=== PATIENT | female | born 1970 | race Asian ===

== ENCOUNTER 2016-11-03 08:53 | Emergency (ER) | payer MEDICAID ==
[~2016-11-03] VITALS: Ht 167.6 cm; Wt 74.8 kg
[2016-11-03] MEDS ORDERED: IV NS 0.9% 1,000 ML ONE (08:59)
[2016-11-03] MEDS ORDERED: ADENOSINE 6 MG/2 ML VIAL ONE (08:59)
[2016-11-03] MEDS ORDERED: IV SET PRIMARY 1 EA INFUS.SET MC ONE (08:59)
[2016-11-03] MEDS ORDERED: ADENOSINE 6 MG/2 ML VIAL IVP ONE (09:30)
[2016-11-03 09:46] VITALS: BP 125/89
== END 2016-11-03 09:47 | disposition home or self-care (01) ==
LOC: ER 08:54
DX: I47.1 Supraventricular tachycardia (principal); I48.91 Unspecified atrial fibrillation; Z98.890 Other specified postprocedural states; Z88.8 Allergy status to other drugs, medicaments and biological substances
CPT/HCPCS: 93005; 96374; 99291; A4606; J0153; J7030; Z7610

== ENCOUNTER 2017-06-19 12:30 | Emergency (ER) | payer MEDICAID, OTHER ==
[~2017-06-19] VITALS: Ht 157.5 cm; Wt 72.6 kg
--- NOTE | 2017-06-19 12:30 | NUR ---
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 PLACED ON MONITOR.
--- NOTE | 2017-06-19 12:59 | NUR ---
Patient discharged to home in stable condition. Written and verbal after care instructions given. Patient verbalizes understanding of instruction.
[2017-06-19 13:00] VITALS: BP 125/84
== END 2017-06-19 13:08 | disposition home or self-care (01) ==
LOC: ER 12:33
DX: I47.1 Supraventricular tachycardia (principal); I48.91 Unspecified atrial fibrillation; Z88.8 Allergy status to other drugs, medicaments and biological substances
CPT/HCPCS: 93005; 99283; A4606; Z7610

== ENCOUNTER 2018-02-14 13:51 | Outpatient (CLI) | payer MEDICAID, OTHER ==
[2018-02-14 14:00] VITALS: BP 126/78
== END 2018-02-14 23:59 | disposition home or self-care (01) ==
LOC: MSC 13:51
PROVIDERS: ATTEND Internal Medicine
DX: J06.9 Acute upper respiratory infection, unspecified (principal); I12.9 Hypertensive chronic kidney disease with stage 1 through stage 4 chronic kidney disease, or unspecified chronic kidney disease; N18.2 Chronic kidney disease, stage 2 (mild)

== ENCOUNTER 2018-06-12 10:54 | Emergency (ER) | payer BC, MEDICAID, OTHER ==
[~2018-06-12] VITALS: Ht 157.5 cm; Wt 74.8 kg
[2018-06-12 10:54] VITALS: BP 155/113
--- NOTE | 2018-06-12 10:57 | NUR ---
STAT EKG DONE. PT CONVERTED TO NSR.
== END 2018-06-12 11:40 | disposition home or self-care (01) ==
LOC: ER 10:57
DX: I47.1 Supraventricular tachycardia (principal); I48.91 Unspecified atrial fibrillation; Z98.890 Other specified postprocedural states; Z88.8 Allergy status to other drugs, medicaments and biological substances
CPT/HCPCS: 93005; 99283; A4606; Z7610

== ENCOUNTER 2018-06-14 06:57 | Outpatient (CLI) | payer BC ==
[2018-06-14 08:59] LABS: APPEARANCE,URINE SL CLOUDY (CLEAR); BILIRUBIN,URINE NEGATIVE (NEGATIVE); BLOOD, URINE 3+ Ery/uL (NEGATIVE); COLOR,URINE YELLOW (YELLOW); KETONES,URINE NEGATIVE (NEGATIVE); LEUKOCYTE ESTERASE ,URINE NEGATIVE (NEGATIVE); NITRITE, URINE NEGATIVE (NEGATIVE); PROTEIN,URINE 2+ mg/dl (NEGATIVE); UGLUCOSE NEGATIVE (NEGATIVE); UROBILINOGEN,URINE 0.2 EU/dL (0.2)
[2018-06-14 09:25] LABS: ALBUMIN 3.8 g/dL (3.4-5.0); BACTERIA,URINE Few /HPF (None Seen); BILIRUBIN,TOTAL 0.4 mg/dL (0.2-1.0); CALCIUM, SERUM 8.7 mg/dL (8.5-10.1); CREATININE 1.1 mg/dL (0.6-1.3); POTASSIUM 4.1 mmol/L (3.5-5.1); SQUAMOUS EPITHELIAL CELL,UR Few /HPF (None Seen); TOTAL PROTEIN, SERUM 8.1 g/dL (6.4-8.2); WBC,URINE 0-2 /HPF (0-3)
[2018-06-14 09:32] LABS: HEMATOCRIT 39 % (33-45); HEMOGLOBIN 12.2 g/dL (11.5-14.8); MEAN CORPUSCULAR HGB CONC 32 g/dl (31.0-36.0); MEAN CORPUSCULAR VOLUME 80 fL (82-100); RED BLOOD CELL COUNT(AUTO) 4.85 MIL/uL (4.0-5.2); WHITE BLOOD COUNT (AUTO) 5.6 K/uL (4.3-11.0)
[2018-06-14 09:33] LABS: BASOPHILS % (AUTO) 0.7 % (0.0-2.0); EOSINOPHILS % (AUTO) 1.4 % (0.0-6.0); LYMPHOCYTES # (AUTO) 1.9 /CMM (0.8-4.8); LYMPHOCYTES % (AUTO) 33.9 % (20.0-44.0); MONOCYTES # (AUTO) 0.4 /CMM (0.1-1.30); MONOCYTES % (AUTO) 7.1 % (2.0-12.0); NEUTROPHILS # (AUTO) 3.2 /CMM (1.8-8.9); NEUTROPHILS % (AUTO) 56.9 % (43.0-81.0); PLATELET COUNT (AUTO) 288 /CMM (150-450); RDW COEFFICIENT OF VARIATION 15.6 (11.5-15.0)
[2018-06-14 09:37] LABS: THYROID STIMULATING HORMONE 1.184 uIU/mL (0.358-3.74)
== END 2018-06-14 23:59 | disposition home or self-care (01) ==
LOC: LAB 06:57
PROVIDERS: ATTEND Legal Medicine
DX: Z00.01 Encounter for general adult medical examination with abnormal findings (principal); I10 Essential (primary) hypertension; E78.5 Hyperlipidemia, unspecified; E03.9 Hypothyroidism, unspecified
CPT/HCPCS: 36415; 80053-TC; 80061-TC; 81000-TC; 82728-TC; 83540-TC; 84439-TC; 84443-TC; 85025-TC

== ENCOUNTER 2018-09-28 10:23 | Emergency (ER) | payer BC, OTHER ==
[~2018-09-28] VITALS: Ht 157.5 cm; Wt 73.9 kg
[2018-09-28] MEDS ORDERED: BENA20TA9 PO (10:50)
[2018-09-28] MEDS ORDERED: METO50TA16 PO (10:50)
--- NOTE | 2018-09-28 11:00 | NUR ---
pt came in to the ER due to rapid heartbeat. on room air, denies any pain at this time, connected to the monitor and converted to sinus rhythm 75. breathing evenly and unlabored. Kept comfortable. awaiting for md for eval. Will continue to monitor accordingly.
[2018-09-28 11:34] VITALS: BP 120/85
--- NOTE | 2018-09-28 11:39 | NUR ---
Patient discharged to home in stable condition. Written and verbal after care instructions given. Patient verbalizes understanding of instruction.
== END 2018-09-28 11:38 | disposition home or self-care (01) ==
LOC: ER 10:25
DX: I47.1 Supraventricular tachycardia (principal); I48.91 Unspecified atrial fibrillation; Z98.890 Other specified postprocedural states; Z88.8 Allergy status to other drugs, medicaments and biological substances; Z79.899 Other long term (current) drug therapy
CPT/HCPCS: 93005; 99283; A4606; Z7610

== ENCOUNTER 2018-12-17 22:35 | Emergency (ER) | payer BC, OTHER ==
[~2018-12-17] VITALS: Ht 157.5 cm; Wt 72.6 kg
[~2018-12-17 22:35] MED LIST: BENA20TA9 PO; METO50TA16 PO
--- NOTE | 2018-12-17 22:50 | NUR ---
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 DENIES SOB. SKIN WARM, DRY, INTACT. HOOKED TO MONITOR AND MADE COMFORTABLE. IV LINE ACCESSED LEFT AC 18G. IVF INFUSING. AT BEDSIDE. SEEN BY DR JOSEPH. WILL CONT TO MONITOR.
[2018-12-17] MEDS ORDERED: LABETALOL 20 MG/4 ML VIAL IV ONE (23:00)
[2018-12-17 23:04] LABS: BASOPHILS # (AUTO) 0.1 /CMM (0.0-0.2); BASOPHILS % (AUTO) 0.7 % (0.0-2.0); EOSINOPHILS % (AUTO) 1.8 % (0.0-6.0); HEMATOCRIT 32 % (33-45); LYMPHOCYTES # (AUTO) 2.3 /CMM (0.8-4.8); LYMPHOCYTES % (AUTO) 18.8 % (20.0-44.0); MEAN CORPUSCULAR HGB CONC 31 g/dl (31.0-36.0); MEAN CORPUSCULAR VOLUME 75 fL (82-100); MONOCYTES # (AUTO) 0.6 /CMM (0.1-1.30); MONOCYTES % (AUTO) 4.6 % (2.0-12.0); NEUTROPHILS # (AUTO) 9.2 /CMM (1.8-8.9); NEUTROPHILS % (AUTO) 74.1 % (43.0-81.0); PLATELET COUNT (AUTO) 402 /CMM (150-450); RED BLOOD CELL COUNT(AUTO) 4.31 MIL/uL (4.0-5.2); WHITE BLOOD COUNT (AUTO) 12.5 K/uL (4.3-11.0)
[2018-12-17] MEDS ORDERED: DILTIAZEM HCL 25 MG IV ONE (23:06)
--- NOTE | 2018-12-17 23:11 | NUR ---
PT HR 80. SINUS RHYTHM. DR JAKE MARS.
[2018-12-17 23:13] LABS: CALCIUM, SERUM 8.8 mg/dL (8.5-10.1); CARBON DIOXIDE 24 mmol/L (21-32); CHLORIDE 101 mmol/L (98-107); GLUCOSE 134 mg/dL (74-106); POTASSIUM 4.7 mmol/L (3.5-5.1); SODIUM SERUM 135 mmol/L (136-145); UREA NITROGEN, BLOOD 19 mg/dL (7-18)
[2018-12-17] MEDS ORDERED: DILTIAZEM HCL 50 MG IV IV ONE ×2 (23:30)
--- NOTE | 2018-12-18 00:27 | NUR ---
PT OK TO DISCHARGE PER DR JOSEPH. IV removed. Catheter intact and site benign. Pressure and 4x4 applied to site. No bleeding noted.Patient discharged to home in stable condition. Written and verbal after care instructions given. Patient verbalizes understanding of instruction.Patient is awake and alert to self, day, and place. PT ambulatory with a steady gait
[2018-12-18 00:28] VITALS: BP 101/77
== END 2018-12-18 00:30 | disposition home or self-care (01) ==
LOC: ER 22:39
DX: I44.30 Unspecified atrioventricular block (principal); I48.92 Unspecified atrial flutter; Z98.890 Other specified postprocedural states; Z88.8 Allergy status to other drugs, medicaments and biological substances; Z79.899 Other long term (current) drug therapy
CPT/HCPCS: 36415; 71045; 80048; 84484; 85025; 93005 ×2; 96374; 99291; J3490; J7030

== ENCOUNTER 2019-02-28 11:03 | Emergency (ER) | payer BC, OTHER ==
[~2019-02-28] VITALS: Ht 157.5 cm; Wt 72.6 kg
[2019-02-28] MEDS ORDERED: ADENOSINE 6 MG/2 ML VIAL ONE (11:15)
--- NOTE | 2019-02-28 11:16 | NUR ---
CAME IN FOR PALPITATIONS NOTED AT 1040AM WHILE WORKING. DENIES CHEST PAIN AND SOB. TOOK 25MG OF METOPROLOL AT 1045. TO ER BED 1, HOOKED TO MONITOR, CHANGED TO GOWN, PROVIDED W WARM BLANKET, CRM ADMINISTRATOR AT BEDSIDE
[2019-02-28] MEDS ORDERED: DILTIAZEM HCL 25 MG IV ONE (11:19)
--- NOTE | 2019-02-28 11:25 | NUR ---
Line started on r ac g20, blood drawn from line and sent to lab. EKG completed Dr. Ramirez at bedside for MD lynn. Pt medicated as ordered with 20mg cardizem slow IVP
--- NOTE | 2019-02-28 11:26 | NUR ---
Pt converted to NSR HR 93, after cardizem. Repeat EKG obtained. MD paredes
[2019-02-28] MEDS ORDERED: DILTIAZEM HCL 50 MG IV IV ONE (11:30)
[2019-02-28 11:38] LABS: BASOPHILS # (AUTO) 0.1 /CMM (0.0-0.2); BASOPHILS % (AUTO) 0.7 % (0.0-2.0); EOSINOPHILS % (AUTO) 0.7 % (0.0-6.0); HEMATOCRIT 35 % (33-45); LYMPHOCYTES # (AUTO) 2.3 /CMM (0.8-4.8); LYMPHOCYTES % (AUTO) 27.1 % (20.0-44.0); MEAN CORPUSCULAR HGB CONC 31 g/dl (31.0-36.0); MEAN CORPUSCULAR VOLUME 70 fL (82-100); MONOCYTES # (AUTO) 0.6 /CMM (0.1-1.30); MONOCYTES % (AUTO) 7.6 % (2.0-12.0); NEUTROPHILS # (AUTO) 5.4 /CMM (1.8-8.9); NEUTROPHILS % (AUTO) 63.9 % (43.0-81.0); PLATELET COUNT (AUTO) 393 /CMM (150-450); RED BLOOD CELL COUNT(AUTO) 5.01 MIL/uL (4.0-5.2); WHITE BLOOD COUNT (AUTO) 8.4 K/uL (4.3-11.0)
[2019-02-28 11:45] LABS: CALCIUM, SERUM 8.9 mg/dL (8.5-10.1); CARBON DIOXIDE 25 mmol/L (21-32); CHLORIDE 100 mmol/L (98-107); CREATININE 0.9 mg/dL (0.6-1.3); GLUCOSE 103 mg/dL (74-106); POTASSIUM 3.9 mmol/L (3.5-5.1); SODIUM SERUM 136 mmol/L (136-145); UREA NITROGEN, BLOOD 12 mg/dL (7-18)
--- NOTE | 2019-02-28 13:08 | NUR ---
IV removed. Catheter intact and site benign. Pressure and 4x4 applied to site. No bleeding noted.Patient discharged to home in stable condition. Written and verbal after care instructions given. Patient verbalizes understanding of instruction.
[2019-02-28 13:10] VITALS: BP 148/82
== END 2019-02-28 13:10 | disposition home or self-care (01) ==
LOC: ER 11:03
DX: I47.1 Supraventricular tachycardia (principal); I10 Essential (primary) hypertension; I48.91 Unspecified atrial fibrillation; R07.89 Other chest pain; Z98.890 Other specified postprocedural states; Z88.8 Allergy status to other drugs, medicaments and biological substances
CPT/HCPCS: 36415; 80048; 84484; 84702; 85025; 93005 ×2; 96374; 99291; J3490; J7030; 71045-TC; J0153

== ENCOUNTER 2019-03-14 09:38 | Outpatient (CLI) | payer BC, OTHER ==
[2019-03-14 10:57] LABS: BASOPHILS # (AUTO) 0.1 /CMM (0.0-0.2); BASOPHILS % (AUTO) 0.6 % (0.0-2.0); EOSINOPHILS % (AUTO) 0.3 % (0.0-6.0); HEMATOCRIT 34 % (33-45); HEMOGLOBIN 10.5 g/dL (11.5-14.8); LYMPHOCYTES # (AUTO) 1.7 /CMM (0.8-4.8); LYMPHOCYTES % (AUTO) 21.2 % (20.0-44.0); MEAN CORPUSCULAR HGB CONC 31 g/dl (31.0-36.0); MEAN CORPUSCULAR VOLUME 72 fL (82-100); MONOCYTES # (AUTO) 0.5 /CMM (0.1-1.30); MONOCYTES % (AUTO) 6.2 % (2.0-12.0); NEUTROPHILS # (AUTO) 5.8 /CMM (1.8-8.9); NEUTROPHILS % (AUTO) 71.7 % (43.0-81.0); PLATELET COUNT (AUTO) 349 /CMM (150-450); RED BLOOD CELL COUNT(AUTO) 4.77 MIL/uL (4.0-5.2)
[2019-03-14 11:10] LABS: APPEARANCE,URINE SL CLOUDY (CLEAR); BILIRUBIN,URINE NEGATIVE (NEGATIVE); BLOOD, URINE 2+ Ery/uL (NEGATIVE); COLOR,URINE YELLOW (YELLOW); KETONES,URINE NEGATIVE (NEGATIVE); LEUKOCYTE ESTERASE ,URINE NEGATIVE (NEGATIVE); NITRITE, URINE NEGATIVE (NEGATIVE); PROTEIN,URINE 2+ mg/dl (NEGATIVE); UGLUCOSE NEGATIVE (NEGATIVE); UROBILINOGEN,URINE 0.2 EU/dL (0.2)
[2019-03-14 11:15] LABS: ALBUMIN 3.5 g/dL (3.4-5.0); BILIRUBIN,TOTAL 0.3 mg/dL (0.2-1.0); CALCIUM, SERUM 9.1 mg/dL (8.5-10.1); CREATININE 1.1 mg/dL (0.6-1.3); POTASSIUM 4.2 mmol/L (3.5-5.1); TOTAL PROTEIN, SERUM 7.8 g/dL (6.4-8.2)
[2019-03-14 11:19] LABS: BACTERIA,URINE Moderate /HPF (None Seen)
[2019-03-14 11:20] LABS: SQUAMOUS EPITHELIAL CELL,UR Few /HPF (None Seen)
[2019-03-14 11:21] LABS: WBC,URINE 0-2 /HPF (0-3)
[2019-03-14 11:28] LABS: THYROID STIMULATING HORMONE 0.837 uIU/mL (0.358-3.74)
[2019-03-15 08:07] LABS: FOLLICLE STIMULATION HORMONE 2.6 mIU/mL (.); LUTEINIZING HORMONE 6.9 mIU/mL (.); PROLACTIN 22.8 ng/mL (4.8-23.3)
== END 2019-03-14 23:59 | disposition home or self-care (01) ==
LOC: LAB 09:38
PROVIDERS: ATTEND Legal Medicine
DX: Z00.00 Encounter for general adult medical examination without abnormal findings (principal); I10 Essential (primary) hypertension; E03.9 Hypothyroidism, unspecified; D64.9 Anemia, unspecified; E55.9 Vitamin D deficiency, unspecified
CPT/HCPCS: 36415; 80053-TC; 80061-TC; 81000-TC; 82306; 82670; 82728-TC; 83001; 83002; 83540-TC; 84146; 84439-TC; 84443-TC; 85025-TC; 87086-TC

== ENCOUNTER 2019-04-14 22:31 | Emergency (ER) | payer BC, OTHER ==
[~2019-04-14] VITALS: Ht 162.6 cm; Wt 63.5 kg
[2019-04-14] MEDS ORDERED: ADENOSINE 6 MG/2 ML VIAL ONE (22:45)
[2019-04-14 23:08] LABS: BASOPHILS # (AUTO) 0.1 /CMM (0.0-0.2); BASOPHILS % (AUTO) 0.7 % (0.0-2.0); HEMATOCRIT 39 % (33-45); HEMOGLOBIN 12.5 g/dL (11.5-14.8); LYMPHOCYTES # (AUTO) 1.5 /CMM (0.8-4.8); LYMPHOCYTES % (AUTO) 18.5 % (20.0-44.0); MEAN CORPUSCULAR HGB CONC 32 g/dl (31.0-36.0); MEAN CORPUSCULAR VOLUME 77 fL (82-100); MONOCYTES # (AUTO) 0.6 /CMM (0.1-1.30); NEUTROPHILS # (AUTO) 5.8 /CMM (1.8-8.9); NEUTROPHILS % (AUTO) 72.8 % (43.0-81.0); PLATELET COUNT (AUTO) 332 /CMM (150-450); RED BLOOD CELL COUNT(AUTO) 5.09 MIL/uL (4.0-5.2); WHITE BLOOD COUNT (AUTO) 7.9 K/uL (4.3-11.0)
[2019-04-14 23:21] LABS: CALCIUM, SERUM 8.5 mg/dL (8.5-10.1); CARBON DIOXIDE 25 mmol/L (21-32); CHLORIDE 109 mmol/L (98-107); CREATININE 1.1 mg/dL (0.6-1.3); GLUCOSE 111 mg/dL (74-106); POTASSIUM 3.7 mmol/L (3.5-5.1); SODIUM SERUM 144 mmol/L (136-145); UREA NITROGEN, BLOOD 14 mg/dL (7-18)
--- NOTE | 2019-04-15 01:34 | NUR ---
Patient discharged to home in stable condition. Written and verbal after care instructions given. Patient verbalizes understanding of instruction.
[2019-04-15 01:35] VITALS: BP 135/95
== END 2019-04-15 01:36 | disposition home or self-care (01) ==
LOC: ER 22:35
DX: I47.1 Supraventricular tachycardia (principal); R00.2 Palpitations; I48.91 Unspecified atrial fibrillation; Z98.890 Other specified postprocedural states; Z88.8 Allergy status to other drugs, medicaments and biological substances
CPT/HCPCS: 36415; 71045-TC; 80048-TC; 83735-TC; 84484-TC; 85025-TC; J0153

== ENCOUNTER 2019-08-01 10:49 | Emergency (ER) | payer BC, OTHER ==
[~2019-08-01] VITALS: Ht 160 cm; Wt 73.5 kg
[2019-08-01] MEDS: ADENOSINE 6 MG/2 ML VIAL IVP ONE (10:42)
--- NOTE | 2019-08-01 10:49 | NUR ---
PATIENT GIVEN ADENOSINE 6MG IV ON LEFT AC G18 AT 1042. PATIENT ON THE MONITOR FOR SVT >150S. PATIENT A/OX4, BREATHING EVEN AND UNLABORED, NO SOB NOTED, FEELS PALPITATION.
--- NOTE | 2019-08-01 10:53 | NUR ---
PATIENT CONVERTED TO SINUS RHYTHM. PATIENT TOLERATED PROCEDURE WELL. NO DISTRESS NOTED.
[2019-08-01 11:26] LABS: BILIRUBIN,URINE Negative (NEGATIVE); BLOOD, URINE Small Ery/uL (NEGATIVE); COLOR,URINE Yellow (YELLOW); KETONES,URINE Negative (NEGATIVE); LEUKOCYTE ESTERASE ,URINE Negative (NEGATIVE); NITRITE, URINE Negative (NEGATIVE); PROTEIN,URINE 100 mg/dl (NEGATIVE); UGLUCOSE Negative (NEGATIVE); UROBILINOGEN,URINE 0.2 EU/dL (0.2)
[2019-08-01 11:27] LABS: APPEARANCE,URINE Slightly Hazy (CLEAR)
[2019-08-01 11:33] LABS: BASOPHILS # (AUTO) 0.1 /CMM (0.0-0.2); BASOPHILS % (AUTO) 0.7 % (0.0-2.0); EOSINOPHILS % (AUTO) 1.1 % (0.0-6.0); HEMATOCRIT 40 % (33-45); LYMPHOCYTES # (AUTO) 1.3 /CMM (0.8-4.8); LYMPHOCYTES % (AUTO) 16.9 % (20.0-44.0); MEAN CORPUSCULAR HGB CONC 33 g/dl (31.0-36.0); MEAN CORPUSCULAR VOLUME 86 fL (82-100); MONOCYTES # (AUTO) 0.6 /CMM (0.1-1.30); MONOCYTES % (AUTO) 8.3 % (2.0-12.0); NEUTROPHILS # (AUTO) 5.5 /CMM (1.8-8.9); PLATELET COUNT (AUTO) 264 /CMM (150-450); RED BLOOD CELL COUNT(AUTO) 4.63 MIL/uL (4.0-5.2); WHITE BLOOD COUNT (AUTO) 7.5 K/uL (4.3-11.0)
[2019-08-01 11:40] LABS: BACTERIA,URINE None seen /HPF (None Seen); SQUAMOUS EPITHELIAL CELL,UR Moderate /HPF (None Seen); WBC,URINE 0-2 /HPF (0-3)
[2019-08-01 11:47] LABS: CHLORIDE 109 mmol/L (98-107); POTASSIUM 3.4 mmol/L (3.5-5.1); SODIUM SERUM 142 mmol/L (136-145)
[2019-08-01 11:48] LABS: CALCIUM, SERUM 8.6 mg/dL (8.5-10.1); CARBON DIOXIDE 28 mmol/L (21-32); CREATININE 0.9 mg/dL (0.6-1.3); GLUCOSE 97 mg/dL (74-106); UREA NITROGEN, BLOOD 14 mg/dL (7-18)
--- NOTE | 2019-08-01 13:20 | NUR ---
Patient discharged to home in stable condition. Written and verbal after care instructions given. Patient verbalizes understanding of instruction. IV removed. Catheter intact and site benign. Pressure and 4x4 applied to site. No bleeding noted.
[2019-08-01 14:42] VITALS: BP 142/90
== END 2019-08-01 13:30 | disposition home or self-care (01) ==
LOC: ER 10:50
DX: I47.1 Supraventricular tachycardia (principal); R00.2 Palpitations; I10 Essential (primary) hypertension; I48.91 Unspecified atrial fibrillation; Z79.899 Other long term (current) drug therapy; Z98.890 Other specified postprocedural states; Z88.8 Allergy status to other drugs, medicaments and biological substances
CPT/HCPCS: 36415; 80048; 81001; 84484; 85025; 93005; 96374; 99284; J0153; 81000-TC

== ENCOUNTER 2020-02-02 09:00 | Emergency (ER) | payer BC, OTHER ==
[~2020-02-02] VITALS: Ht 157.5 cm; Wt 72.6 kg
[2020-02-02] MEDS ORDERED: ADENOSINE 6 MG/2 ML VIAL ONE (09:10)
[2020-02-02 09:20] LABS: BASOPHILS # (AUTO) 0.1 /CMM (0.0-0.2); BASOPHILS % (AUTO) 0.6 % (0.0-2.0); EOSINOPHILS % (AUTO) 1.2 % (0.0-6.0); HEMATOCRIT 46 % (33-45); HEMOGLOBIN 15.5 g/dL (11.5-14.8); LYMPHOCYTES # (AUTO) 2.8 /CMM (0.8-4.8); LYMPHOCYTES % (AUTO) 28.6 % (20.0-44.0); MEAN CORPUSCULAR HGB CONC 34 g/dl (31.0-36.0); MEAN CORPUSCULAR VOLUME 86 fL (82-100); MONOCYTES # (AUTO) 0.7 /CMM (0.1-1.30); MONOCYTES % (AUTO) 6.9 % (2.0-12.0); NEUTROPHILS # (AUTO) 6.1 /CMM (1.8-8.9); NEUTROPHILS % (AUTO) 62.7 % (43.0-81.0); PLATELET COUNT (AUTO) 304 /CMM (150-450); RED BLOOD CELL COUNT(AUTO) 5.39 MIL/uL (4.0-5.2); WHITE BLOOD COUNT (AUTO) 9.8 K/uL (4.3-11.0)
--- NOTE | 2020-02-02 09:20 | NUR ---
patient came in to ther er c/o "Palpitations started around 750 this am took cardizem but did not help". On room air, breathing evenly and unlabored. connected to the monitor and pulse ox. kept comfortable, will continue to monitor accordingly.
[2020-02-02 09:27] LABS: CALCIUM, SERUM 8.9 mg/dL (8.5-10.1); CARBON DIOXIDE 27 mmol/L (21-32); CHLORIDE 101 mmol/L (98-107); CREATININE 1.1 mg/dL (0.6-1.3); GLUCOSE 123 mg/dL (74-106); POTASSIUM 3.5 mmol/L (3.5-5.1); SODIUM SERUM 139 mmol/L (136-145); UREA NITROGEN, BLOOD 14 mg/dL (7-18)
[2020-02-02] MEDS ORDERED: ADENOSINE 6 MG/2 ML VIAL IVP ONE (09:30)
[2020-02-02] MEDS ORDERED: IV NS 0.9% 1,000 ML BAG IV ONE (09:30)
--- NOTE | 2020-02-02 09:41 | NUR ---
juliana at bedside for x-ray
[2020-02-02 10:31] VITALS: BP 145/101
--- NOTE | 2020-02-02 10:31 | NUR ---
Patient discharged to home in stable condition. Written and verbal after care instructions given. Patient verbalizes understanding of instruction.IV removed. Catheter intact and site benign. Pressure and 4x4 applied to site. No bleeding noted.
== END 2020-02-02 10:31 | disposition home or self-care (01) ==
LOC: ER 09:03
DX: I47.1 Supraventricular tachycardia (principal); I10 Essential (primary) hypertension; I48.91 Unspecified atrial fibrillation; Z98.890 Other specified postprocedural states; Z88.8 Allergy status to other drugs, medicaments and biological substances; Z79.899 Other long term (current) drug therapy
CPT/HCPCS: 36415; 71045; 80048; 84484; 85025; 93005 ×2; 96374; 99291; J0153

== ENCOUNTER 2020-02-13 07:03 | Emergency (ER) | payer BC, OTHER ==
[~2020-02-13] VITALS: Ht 157.5 cm; Wt 72.6 kg
--- NOTE | 2020-02-13 07:18 | NUR ---
PALPITATIONS SINCE 642 WHILE DRIVING. PATIENT A/OX4, BREATHING EVEN AND UNLABORED, ATTACHED TO THE VP EMERGING MEDIA. IV LINE ESTABLISHED. MEDICATIONS PREPARED.
[2020-02-13] MEDS: ADENOSINE 6 MG/2 ML VIAL IVP ONE (07:19)
[2020-02-13] MEDS ORDERED: ADENOSINE 6 MG/2 ML VIAL ONE (07:19)
--- NOTE | 2020-02-13 07:20 | NUR ---
PATIENT CONVERTED TO SINUS TACHYCARDIA. PATIENT RESTING, NO DISTRESS NOTED.
[2020-02-13 07:49] LABS: BASOPHILS % (AUTO) 0.7 % (0.0-2.0); HEMATOCRIT 41 % (33-45); HEMOGLOBIN 13.8 g/dL (11.5-14.8); LYMPHOCYTES # (AUTO) 1.5 /CMM (0.8-4.8); LYMPHOCYTES % (AUTO) 23.8 % (20.0-44.0); MEAN CORPUSCULAR HGB CONC 33 g/dl (31.0-36.0); MEAN CORPUSCULAR VOLUME 86 fL (82-100); MONOCYTES # (AUTO) 0.4 /CMM (0.1-1.30); MONOCYTES % (AUTO) 6.8 % (2.0-12.0); NEUTROPHILS # (AUTO) 4.3 /CMM (1.8-8.9); NEUTROPHILS % (AUTO) 67.7 % (43.0-81.0); PLATELET COUNT (AUTO) 261 /CMM (150-450); RED BLOOD CELL COUNT(AUTO) 4.83 MIL/uL (4.0-5.2); WHITE BLOOD COUNT (AUTO) 6.4 K/uL (4.3-11.0)
[2020-02-13 07:59] LABS: ALANINE AMINOTRANSFERASE 28 U/L (12-78); ALBUMIN 3.2 g/dL (3.4-5.0); ALKALINE PHOSPHATASE 62 U/L (46-116); ASPARTATE AMINOTRANSFERASE 25 U/L (15-37); BILIRUBIN,DIRECT 0.2 mg/dL (0.0-0.2); BILIRUBIN,TOTAL 0.5 mg/dL (0.2-1.0); CALCIUM, SERUM 8.3 mg/dL (8.5-10.1); CARBON DIOXIDE 29 mmol/L (21-32); CHLORIDE 104 mmol/L (98-107); CREATININE 1.1 mg/dL (0.6-1.3); GLUCOSE 109 mg/dL (74-106); POTASSIUM 3.5 mmol/L (3.5-5.1); SODIUM SERUM 141 mmol/L (136-145); TOTAL PROTEIN, SERUM 7.1 g/dL (6.4-8.2); UREA NITROGEN, BLOOD 14 mg/dL (7-18)
[2020-02-13 08:31] VITALS: BP 140/90
--- NOTE | 2020-02-13 08:31 | NUR ---
PATIENT STATED SHE FEELS BETTER, NO DISTRESS NOTED. NEEDS ATTENDED. IV removed. Catheter intact and site benign. Pressure and 4x4 applied to site. No bleeding noted.Patient discharged to home in stable condition. Written and verbal after care instructions given. Patient verbalizes understanding of instruction.
== END 2020-02-13 08:35 | disposition home or self-care (01) ==
LOC: ER 07:03
DX: I47.1 Supraventricular tachycardia (principal); R00.2 Palpitations; I10 Essential (primary) hypertension; I48.91 Unspecified atrial fibrillation; Z98.890 Other specified postprocedural states; Z88.8 Allergy status to other drugs, medicaments and biological substances; Z79.899 Other long term (current) drug therapy
CPT/HCPCS: 36415; 71045; 80048; 80076; 84484; 85025; 93005 ×2; 96374; 99285; J0153

== ENCOUNTER 2020-03-05 15:54 | Emergency (ER) | payer BC, OTHER ==
[~2020-03-05] VITALS: Ht 157.5 cm; Wt 72.6 kg
[2020-03-05] MEDS ORDERED: ADENOSINE 6 MG/2 ML VIAL ONE (16:09)
--- NOTE | 2020-03-05 16:20 | NUR ---
Medicated as per orders w/Dr Mckeon at bedside HR now around <130.
[2020-03-05 16:31] LABS: BASOPHILS % (AUTO) 0.4 % (0.0-2.0); HEMATOCRIT 43 % (33-45); HEMOGLOBIN 14.4 g/dL (11.5-14.8); LYMPHOCYTES % (AUTO) 32.2 % (20.0-44.0); MEAN CORPUSCULAR HGB CONC 33 g/dl (31.0-36.0); MEAN CORPUSCULAR VOLUME 86 fL (82-100); MONOCYTES # (AUTO) 0.5 /CMM (0.1-1.30); NEUTROPHILS # (AUTO) 5.6 /CMM (1.8-8.9); NEUTROPHILS % (AUTO) 61.4 % (43.0-81.0); PLATELET COUNT (AUTO) 310 /CMM (150-450); RED BLOOD CELL COUNT(AUTO) 5.03 MIL/uL (4.0-5.2); WHITE BLOOD COUNT (AUTO) 9.2 K/uL (4.3-11.0)
[2020-03-05 16:40] LABS: CALCIUM, SERUM 8.9 mg/dL (8.5-10.1); CARBON DIOXIDE 28 mmol/L (21-32); CHLORIDE 103 mmol/L (98-107); CREATININE 1.1 mg/dL (0.6-1.3); GLUCOSE 125 mg/dL (74-106); POTASSIUM 3.6 mmol/L (3.5-5.1); SODIUM SERUM 139 mmol/L (136-145); UREA NITROGEN, BLOOD 13 mg/dL (7-18)
--- NOTE | 2020-03-05 17:06 | NUR ---
in to re-evaluate pt. aware of BP trending high
[2020-03-05] MEDS ORDERED: LABETALOL 20 MG/4 ML VIAL IV ONE (17:30)
[2020-03-05] MEDS ORDERED: LABETALOL HCL IV 100MG VIAL ONE (17:38)
--- NOTE | 2020-03-05 17:43 | NUR ---
Pt states feeling better. Medicated as ordered
[2020-03-05 18:22] VITALS: BP 142/91
--- NOTE | 2020-03-05 18:23 | NUR ---
Patient discharged to home in stable condition. Written and verbal after care instructions given. Patient verbalizes understanding of instruction.
== END 2020-03-05 18:23 | disposition home or self-care (01) ==
LOC: ER 15:57
DX: I47.1 Supraventricular tachycardia (principal); R00.2 Palpitations; I10 Essential (primary) hypertension; I48.91 Unspecified atrial fibrillation; Z98.890 Other specified postprocedural states; Z79.899 Other long term (current) drug therapy; Z88.8 Allergy status to other drugs, medicaments and biological substances
CPT/HCPCS: 36415; 71045; 80048; 84484; 85025; 93005 ×3; 96374; 99285; J0153; J3490 ×2; J7030

== ENCOUNTER 2020-05-14 11:52 | Emergency (ER) | payer BC, OTHER ==
[~2020-05-14] VITALS: Ht 157.5 cm; Wt 74.8 kg
[2020-05-14 11:59] VITALS: BP 135/90
== END 2020-05-14 12:28 | disposition home or self-care (01) ==
LOC: ER 11:55
DX: Z20.828 Contact with and (suspected) exposure to other viral communicable diseases (principal)
CPT/HCPCS: 99283; C9803; U0003

== ENCOUNTER 2020-05-21 11:23 | Emergency (ER) | payer OTHER ==
[~2020-05-21] VITALS: Ht 157.5 cm; Wt 74.4 kg
[2020-05-21 11:29] VITALS: BP 135/84
--- NOTE | 2020-05-21 12:10 | NUR ---
covid swab sent,
== END 2020-05-21 12:23 | disposition home or self-care (01) ==
LOC: ER 11:25
DX: Z20.828 Contact with and (suspected) exposure to other viral communicable diseases (principal); I10 Essential (primary) hypertension; Z79.899 Other long term (current) drug therapy
CPT/HCPCS: 99283; C9803; U0003

== ENCOUNTER 2020-06-04 09:09 | Emergency (ER) | payer OTHER ==
[~2020-06-04] VITALS: Ht 157.5 cm; Wt 72.6 kg
[2020-06-04 09:13] VITALS: BP 135/84
== END 2020-06-04 09:30 | disposition home or self-care (01) ==
LOC: ER 09:11
DX: Z20.828 Contact with and (suspected) exposure to other viral communicable diseases (principal)
CPT/HCPCS: 99283; C9803; U0003

== ENCOUNTER 2020-06-10 10:29 | Emergency (ER) | payer OTHER ==
[~2020-06-10] VITALS: Ht 157.5 cm; Wt 72.6 kg
[2020-06-10 10:34] VITALS: BP 135/85
== END 2020-06-10 11:21 | disposition home or self-care (01) ==
LOC: ER 10:30
DX: Z20.828 Contact with and (suspected) exposure to other viral communicable diseases (principal); I10 Essential (primary) hypertension
CPT/HCPCS: C9803-CS; U0003-CS

== ENCOUNTER 2020-06-18 09:11 | Emergency (ER) | payer OTHER ==
[~2020-06-18] VITALS: Ht 157.5 cm; Wt 72.6 kg
[2020-06-18 09:14] VITALS: BP 135/80
--- NOTE | 2020-06-18 10:03 | NUR ---
VERBALLY DISCHARGED. NO ACI PROVIDED.
--- NOTE | 2020-06-19 02:31 | NUR ---
LAB CALLED REGARDING NEGATIVE COVID RESULT.
== END 2020-06-18 10:03 | disposition home or self-care (01) ==
LOC: ER 09:12
DX: Z20.828 Contact with and (suspected) exposure to other viral communicable diseases (principal); I10 Essential (primary) hypertension; Z79.899 Other long term (current) drug therapy
CPT/HCPCS: 99283; C9803; U0003

== ENCOUNTER 2020-06-24 09:43 | Emergency (ER) | payer OTHER ==
[~2020-06-24] VITALS: Ht 162.6 cm; Wt 72.6 kg
[2020-06-24 09:47] VITALS: BP 140/80
--- NOTE | 2020-06-24 10:21 | NUR ---
covid swab sent. Patient discharged to home in stable condition. Verbal after care instructions given. Patient verbalizes understanding of instruction.
== END 2020-06-24 10:23 | disposition home or self-care (01) ==
LOC: ER 09:44
DX: Z20.828 Contact with and (suspected) exposure to other viral communicable diseases (principal); I10 Essential (primary) hypertension; Z87.898 Personal history of other specified conditions
CPT/HCPCS: 99283; C9803; U0003

== ENCOUNTER 2020-07-01 13:45 | Emergency (ER) | payer OTHER ==
[~2020-07-01] VITALS: Ht 162.6 cm; Wt 72.6 kg
[2020-07-01 13:45] VITALS: BP 136/71
== END 2020-07-01 14:28 | disposition home or self-care (01) ==
LOC: ER 13:46
DX: Z20.828 Contact with and (suspected) exposure to other viral communicable diseases (principal)
CPT/HCPCS: 99283; C9803; U0003

== ENCOUNTER 2020-07-30 08:28 | Emergency (ER) | payer OTHER ==
[~2020-07-30] VITALS: Ht 157.5 cm; Wt 72.6 kg
[2020-07-30 08:35] VITALS: BP 135/90
== END 2020-07-30 08:58 | disposition home or self-care (01) ==
LOC: ER 08:31
DX: Z20.828 Contact with and (suspected) exposure to other viral communicable diseases (principal); I10 Essential (primary) hypertension; Z88.8 Allergy status to other drugs, medicaments and biological substances; Z87.898 Personal history of other specified conditions; Z79.899 Other long term (current) drug therapy
CPT/HCPCS: 99283; C9803; U0003

== ENCOUNTER 2020-08-04 14:30 | Emergency (ER) | payer OTHER ==
[~2020-08-04] VITALS: Ht 157.5 cm; Wt 72.6 kg
[2020-08-04 14:32] VITALS: BP 135/86
== END 2020-08-04 14:59 | disposition home or self-care (01) ==
LOC: ER 14:30
DX: Z20.828 Contact with and (suspected) exposure to other viral communicable diseases (principal); I10 Essential (primary) hypertension; Z79.899 Other long term (current) drug therapy
CPT/HCPCS: 99283; C9803; U0003

== ENCOUNTER 2020-08-10 13:09 | Emergency (ER) | payer OTHER ==
[~2020-08-10] VITALS: Ht 157.5 cm; Wt 72.6 kg
[2020-08-10 13:13] VITALS: BP 140/85
--- NOTE | 2020-08-10 13:28 | NUR ---
COVIC SWAB TEST COLLECTED AND SENT TO THE LAB.
--- NOTE | 2020-08-10 13:30 | NUR ---
Patient discharged to home in stable condition. Written and verbal after care instructions given. Patient verbalizes understanding of instruction.
== END 2020-08-10 13:39 | disposition home or self-care (01) ==
LOC: ER 13:11
DX: Z20.828 Contact with and (suspected) exposure to other viral communicable diseases (principal); I10 Essential (primary) hypertension; Z88.8 Allergy status to other drugs, medicaments and biological substances
CPT/HCPCS: 99283; C9803; U0003

== ENCOUNTER 2020-08-19 08:04 | Emergency (ER) | payer OTHER ==
[~2020-08-19] VITALS: Ht 157.5 cm; Wt 73.5 kg
[2020-08-19 08:10] VITALS: BP 138/85
--- NOTE | 2020-08-19 08:37 | NUR ---
Patient discharged to home in stable condition. Written and verbal after care instructions given. Patient verbalizes understanding of instruction.
== END 2020-08-19 08:38 | disposition home or self-care (01) ==
LOC: ER 08:05
DX: Z20.828 Contact with and (suspected) exposure to other viral communicable diseases (principal); I10 Essential (primary) hypertension
CPT/HCPCS: 99283; C9803; U0003

== ENCOUNTER 2021-01-27 07:47 | Outpatient (CLI) | payer BC ==
[2021-01-27 08:21] LABS: BASOPHILS % (AUTO) 0.5 % (0.0-2.0); EOSINOPHILS % (AUTO) 1.1 % (0.0-6.0); HEMATOCRIT 39 % (33-45); HEMOGLOBIN 12.9 g/dL (11.5-14.8); LYMPHOCYTES # (AUTO) 2.2 /CMM (0.8-4.8); LYMPHOCYTES % (AUTO) 33.2 % (20.0-44.0); MEAN CORPUSCULAR HGB CONC 33 g/dl (31.0-36.0); MEAN CORPUSCULAR VOLUME 83 fL (82-100); MONOCYTES # (AUTO) 0.4 /CMM (0.1-1.30); MONOCYTES % (AUTO) 6.3 % (2.0-12.0); NEUTROPHILS # (AUTO) 3.9 /CMM (1.8-8.9); NEUTROPHILS % (AUTO) 58.9 % (43.0-81.0); PLATELET COUNT (AUTO) 271 /CMM (150-450); RED BLOOD CELL COUNT(AUTO) 4.68 MIL/uL (4.0-5.2); WHITE BLOOD COUNT (AUTO) 6.6 K/uL (4.3-11.0)
[2021-01-27 08:37] LABS: ALANINE AMINOTRANSFERASE 26 U/L (12-78); ALBUMIN 3.5 g/dL (3.4-5.0); ALKALINE PHOSPHATASE 68 U/L (46-116); ASPARTATE AMINOTRANSFERASE 19 U/L (15-37); BILIRUBIN,TOTAL 0.4 mg/dL (0.2-1.0); CARBON DIOXIDE 28 mmol/L (21-32); CHLORIDE 105 mmol/L (98-107); CREATININE 1.1 mg/dL (0.6-1.3); GLUCOSE 102 mg/dL (74-106); SODIUM SERUM 140 mmol/L (136-145); TOTAL PROTEIN, SERUM 7.7 g/dL (6.4-8.2); UREA NITROGEN, BLOOD 16 mg/dL (7-18)
[2021-01-27 09:08] LABS: C-REACTIVE PROTEIN < 0.2 mg/dL (0.0-0.9)
== END 2021-01-27 23:59 | disposition home or self-care (01) ==
LOC: LAB 07:47
PROVIDERS: ATTEND Legal Medicine
DX: R51.9 Headache, unspecified (principal)
CPT/HCPCS: 36415; 80053-TC; 85025-TC; 85652-TC; 86140-TC

== ENCOUNTER 2021-03-28 11:21 | Emergency (ER) | payer BC ==
[~2021-03-28] VITALS: Ht 157.5 cm; Wt 73.0 kg
[2021-03-28] MEDS ORDERED: ADENOSINE 6 MG/2 ML VIAL ONE (11:27)
--- NOTE | 2021-03-28 11:30 | NUR ---
SENT FROM COIL TAPER OFFICE. AAOX4. NOT IN RESP DISTRESS. BROUGHT IN ON A WHEELCHAIR. TRANSFERRD FROM WHEELCHAIR TO [facility] WITHOUT ASSIST. SENT FOR SVT. PT NOTED WITH HR OF 180. DENIES CP. EKG DONE. MD WAS AT THE BEDSIDE. IV LINE ON L AC 18G.
--- NOTE | 2021-03-28 11:33 | NUR ---
ADENOSINE 6MG VIA IVP X 1 GIVEN.
[2021-03-28] MEDS ORDERED: ADENOSINE 6 MG/2 ML VIAL IVP ONE (12:00)
[2021-03-28 12:33] VITALS: BP 152/102
--- NOTE | 2021-03-28 12:33 | NUR ---
Patient discharged to home in stable condition. Written and verbal after care instructions given. Patient verbalizes understanding of instruction.IV removed. Catheter intact and site benign. Pressure and 4x4 applied to site. No bleeding noted. Pt ambulatory with a steady gait
== END 2021-03-28 12:40 | disposition home or self-care (01) ==
LOC: ER 11:21
DX: I47.1 Supraventricular tachycardia (principal); I10 Essential (primary) hypertension; I48.91 Unspecified atrial fibrillation; Z98.890 Other specified postprocedural states; Z88.8 Allergy status to other drugs, medicaments and biological substances; Z79.899 Other long term (current) drug therapy
CPT/HCPCS: 93005; 96374; 99291; J0153

== ENCOUNTER 2021-04-14 08:33 | Outpatient (CLI) | payer BC ==
[2021-04-14 09:12] LABS: BASOPHILS % (AUTO) 0.5 % (0.0-2.0); EOSINOPHILS % (AUTO) 0.7 % (0.0-6.0); HEMATOCRIT 39 % (33-45); HEMOGLOBIN 12.8 g/dL (11.5-14.8); LYMPHOCYTES # (AUTO) 2.4 K/uL (0.8-4.8); MEAN CORPUSCULAR HGB CONC 33 g/dl (31.0-36.0); MEAN CORPUSCULAR VOLUME 85 fL (82-100); MONOCYTES # (AUTO) 0.5 K/uL (0.1-1.30); MONOCYTES % (AUTO) 6.6 % (2.0-12.0); NEUTROPHILS # (AUTO) 5.1 K/uL (1.8-8.9); NEUTROPHILS % (AUTO) 63.2 % (43.0-81.0); PLATELET COUNT (AUTO) 283 K/uL (150-450); RED BLOOD CELL COUNT(AUTO) 4.64 MIL/uL (4.0-5.2); WHITE BLOOD COUNT (AUTO) 8.1 K/uL (4.3-11.0)
[2021-04-14 09:19] LABS: BILIRUBIN,URINE NEGATIVE (NEGATIVE); COLOR,URINE YELLOW (YELLOW); LEUKOCYTE ESTERASE ,URINE NEGATIVE (NEGATIVE); NITRITE, URINE NEGATIVE (NEGATIVE); PROTEIN,URINE >=300 mg/dl (NEGATIVE); UGLUCOSE NEGATIVE (NEGATIVE); UROBILINOGEN,URINE 0.2 EU/dL (0.2)
[2021-04-14 09:31] LABS: BACTERIA,URINE Rare /HPF (None Seen); RBC,URINE 0-4 /HPF (0-2); SQUAMOUS EPITHELIAL CELL,UR Few /HPF (None Seen); WBC,URINE 0-2 /HPF (0-3)
[2021-04-14 09:36] LABS: FREE T4 (FREE THYROXINE) 1.08 ng/dL (0.76-1.46); THYROID STIMULATING HORMONE 1.373 uIU/mL (0.358-3.74)
[2021-04-14 09:52] LABS: ALBUMIN 3.6 g/dL (3.4-5.0); BILIRUBIN,TOTAL 0.4 mg/dL (0.2-1.0); CALCIUM, SERUM 8.8 mg/dL (8.5-10.1); CREATININE 1.1 mg/dL (0.6-1.3); POTASSIUM 3.9 mmol/L (3.5-5.1); TOTAL PROTEIN, SERUM 7.9 g/dL (6.4-8.2)
[2021-04-15 08:07] LABS: FOLLICLE STIMULATION HORMONE 12.6 mIU/mL (.); LUTEINIZING HORMONE 18.8 mIU/mL (.); PROLACTIN 19.4 ng/mL (4.8-23.3); T3, FREE 2.9 pg/mL (2.0-4.4)
== END 2021-04-14 23:59 | disposition home or self-care (01) ==
LOC: LAB 08:33
PROVIDERS: ATTEND Legal Medicine
DX: I12.9 Hypertensive chronic kidney disease with stage 1 through stage 4 chronic kidney disease, or unspecified chronic kidney disease (principal); E11.22 Type 2 diabetes mellitus with diabetic chronic kidney disease; N18.9 Chronic kidney disease, unspecified; E78.00 Pure hypercholesterolemia, unspecified; E03.9 Hypothyroidism, unspecified; D64.9 Anemia, unspecified; R53.1 Weakness; Z00.00 Encounter for general adult medical examination without abnormal findings
CPT/HCPCS: 36415; 80053-TC; 80061-TC; 81001; 82306; 82607-TC; 82670; 83001; 83002; 83540-TC; 84146; 84402; 84403; 84439-TC; 84443-TC; 84481; 84550-TC; 85025-TC

== ENCOUNTER 2021-05-16 12:48 | Outpatient (CLI) | payer BC ==
[2021-05-16 13:36] LABS: BASOPHILS # (AUTO) 0.1 K/uL (0.0-0.2); BASOPHILS % (AUTO) 0.8 % (0.0-2.0); EOSINOPHILS % (AUTO) 0.5 % (0.0-6.0); HEMATOCRIT 41 % (33-45); HEMOGLOBIN 13.6 g/dL (11.5-14.8); LYMPHOCYTES # (AUTO) 1.4 K/uL (0.8-4.8); LYMPHOCYTES % (AUTO) 21.5 % (20.0-44.0); MEAN CORPUSCULAR HGB CONC 33 g/dl (31.0-36.0); MEAN CORPUSCULAR VOLUME 84 fL (82-100); MONOCYTES # (AUTO) 0.4 K/uL (0.1-1.30); MONOCYTES % (AUTO) 5.4 % (2.0-12.0); NEUTROPHILS # (AUTO) 4.8 K/uL (1.8-8.9); NEUTROPHILS % (AUTO) 71.8 % (43.0-81.0); PLATELET COUNT (AUTO) 307 K/uL (150-450); RED BLOOD CELL COUNT(AUTO) 4.85 MIL/uL (4.0-5.2); WHITE BLOOD COUNT (AUTO) 6.6 K/uL (4.3-11.0)
[2021-05-16 14:04] LABS: ALBUMIN 3.7 g/dL (3.4-5.0); BILIRUBIN,TOTAL 0.3 mg/dL (0.2-1.0); CALCIUM, SERUM 9.6 mg/dL (8.5-10.1); CREATININE 1.1 mg/dL (0.6-1.3); POTASSIUM 4.4 mmol/L (3.5-5.1); TOTAL PROTEIN, SERUM 8.4 g/dL (6.4-8.2)
[2021-05-17 07:08] LABS: CANCER AG, 15-3 14.3 U/mL (0.0-25.0)
== END 2021-05-16 23:59 | disposition home or self-care (01) ==
LOC: LAB 12:48
PROVIDERS: ATTEND Internal Medicine Hematology & Oncology
DX: C50.211 Malignant neoplasm of upper-inner quadrant of right female breast (principal)
CPT/HCPCS: 36415; 80053-TC; 82378; 85025-TC; 86300

== ENCOUNTER 2021-05-17 08:52 | Outpatient (CLI) | payer BC ==
[2021-05-17] MEDS ORDERED: IOHEXOL-300 100 ML VIAL IV ONE (09:14)
[2021-05-17] MEDS ORDERED: IV NS 0.9% 250 ML IV ONE (09:15)
== END 2021-05-17 23:59 | disposition home or self-care (01) ==
LOC: CT 08:52
PROVIDERS: ATTEND Internal Medicine Hematology & Oncology
DX: C50.919 Malignant neoplasm of unspecified site of unspecified female breast (principal); K57.30 Diverticulosis of large intestine without perforation or abscess without bleeding; R59.1 Generalized enlarged lymph nodes; I51.7 Cardiomegaly; N28.1 Cyst of kidney, acquired; K59.00 Constipation, unspecified; M51.35 Other intervertebral disc degeneration, thoracolumbar region
CPT/HCPCS: 71270; 74178; J7050; Q9967

== ENCOUNTER 2021-05-26 14:36 | Emergency (ER) | payer BC ==
[~2021-05-26] VITALS: Ht 157.5 cm; Wt 72.6 kg
--- NOTE | 2021-05-26 14:41 | NUR ---
THE PATIENT BIBS FOR C/O PALPITATION, HX OF SVT. DENIES CHEST PAIN. RESPIRATON REGULAR AND UNLABORED. ATTACHED TO THE MONITOR. DR HUYNH AT THE BEDSIDE.
[2021-05-26] MEDS ORDERED: ADENOSINE 6 MG/2 ML VIAL ONE (14:42)
--- NOTE | 2021-05-26 14:48 | NUR ---
ADENOCARD 6 MG IV PUSH GIVEN AT 1448 BLOOD PRESSURE 162/109 AND HR 200. THE PATIENT ON MONITOR. DR HUYNH AT THE BEDSIDE
--- NOTE | 2021-05-26 14:53 | NUR ---
BLOOD PRESSURE 160/104 AND HEAR RATE 109
[2021-05-26] MEDS ORDERED: ADENOSINE 6 MG/2 ML VIAL IVP ONE (15:00)
[2021-05-26] MEDS ORDERED: IV NS 0.9% 1,000 ML BAG IV ONE (15:00)
[2021-05-26 15:40] LABS: BASOPHILS # (AUTO) 0.1 K/uL (0.0-0.2); BASOPHILS % (AUTO) 0.6 % (0.0-2.0); HEMATOCRIT 40 % (33-45); HEMOGLOBIN 13.4 g/dL (11.5-14.8); LYMPHOCYTES # (AUTO) 1.6 K/uL (0.8-4.8); LYMPHOCYTES % (AUTO) 19.9 % (20.0-44.0); MEAN CORPUSCULAR HGB CONC 33 g/dl (31.0-36.0); MEAN CORPUSCULAR VOLUME 83 fL (82-100); MONOCYTES # (AUTO) 0.5 K/uL (0.1-1.30); MONOCYTES % (AUTO) 6.3 % (2.0-12.0); NEUTROPHILS # (AUTO) 5.8 K/uL (1.8-8.9); NEUTROPHILS % (AUTO) 72.2 % (43.0-81.0); PLATELET COUNT (AUTO) 312 K/uL (150-450); RED BLOOD CELL COUNT(AUTO) 4.87 MIL/uL (4.0-5.2); WHITE BLOOD COUNT (AUTO) 8.1 K/uL (4.3-11.0)
[2021-05-26 16:00] LABS: CALCIUM, SERUM 8.9 mg/dL (8.5-10.1); CARBON DIOXIDE 29 mmol/L (21-32); CHLORIDE 108 mmol/L (98-107); CREATININE 1.2 mg/dL (0.6-1.3); GLUCOSE 105 mg/dL (74-106); POTASSIUM 3.8 mmol/L (3.5-5.1); SODIUM SERUM 144 mmol/L (136-145); UREA NITROGEN, BLOOD 23 mg/dL (7-18)
[2021-05-26 16:30] VITALS: BP 131/85
== END 2021-05-26 16:30 | disposition home or self-care (01) ==
LOC: ER 14:47
DX: I47.1 Supraventricular tachycardia (principal); I10 Essential (primary) hypertension; I48.91 Unspecified atrial fibrillation; Z85.3 Personal history of malignant neoplasm of breast; Z98.890 Other specified postprocedural states; Z88.8 Allergy status to other drugs, medicaments and biological substances; Z79.899 Other long term (current) drug therapy
CPT/HCPCS: 36415; 71045; 80048; 84484; 85025; 92960; 93005 ×2; 96360; 99152; 99285; J0153; J7030; G0500

== ENCOUNTER 2021-05-27 14:00 | Day surgery (SDC) | payer BC ==
[2021-05-27 12:39] LABS: BASOPHILS % (AUTO) 0.6 % (0.0-2.0); EOSINOPHILS % (AUTO) 0.5 % (0.0-6.0); HEMATOCRIT 40 % (33-45); HEMOGLOBIN 13.2 g/dL (11.5-14.8); LYMPHOCYTES # (AUTO) 1.9 K/uL (0.8-4.8); LYMPHOCYTES % (AUTO) 23.4 % (20.0-44.0); MEAN CORPUSCULAR HGB CONC 33 g/dl (31.0-36.0); MEAN CORPUSCULAR VOLUME 84 fL (82-100); MONOCYTES # (AUTO) 0.4 K/uL (0.1-1.30); MONOCYTES % (AUTO) 5.5 % (2.0-12.0); NEUTROPHILS # (AUTO) 5.6 K/uL (1.8-8.9); PLATELET COUNT (AUTO) 323 K/uL (150-450); RED BLOOD CELL COUNT(AUTO) 4.77 MIL/uL (4.0-5.2); WHITE BLOOD COUNT (AUTO) 7.9 K/uL (4.3-11.0)
[2021-05-27 12:51] LABS: ALBUMIN 3.6 g/dL (3.4-5.0); BILIRUBIN,TOTAL 0.4 mg/dL (0.2-1.0); CALCIUM, SERUM 8.8 mg/dL (8.5-10.1); CREATININE 1.1 mg/dL (0.6-1.3); POTASSIUM 3.9 mmol/L (3.5-5.1); TOTAL PROTEIN, SERUM 8.1 g/dL (6.4-8.2)
[~2021-05-27 14:00] MED LIST changes: +BUPIVACAINE 0.5 % PF 150 MG/30 ML VIAL ONE; +HEPARIN SODIUM, PORCINE 1,000 UNIT/ML VIAL ONE; +IOHEXOL 240MG/ML 50 ML IV ONE; +LIDOCAINE HCL/MPF 1% 30 ML VIAL IJ ONE
[2021-05-27] MEDS ORDERED: LABETALOL HCL IV 100MG VIAL ONE (15:27)
== END 2021-05-27 16:40 | disposition home or self-care (01) ==
LOC: DS 14:00
PROVIDERS: ATTEND Surgery
DX: C50.812 Malignant neoplasm of overlapping sites of left female breast (principal); F41.9 Anxiety disorder, unspecified; I10 Essential (primary) hypertension; E78.5 Hyperlipidemia, unspecified; Z98.890 Other specified postprocedural states; Z79.899 Other long term (current) drug therapy
CPT/HCPCS: 36415; 36561; 71045; 76937; 80053; 84703; 85025; 85610; 85730; C1788; J1100; J1644 ×2; J2704; J3490 ×4; Q9966

== ENCOUNTER 2021-06-13 14:02 | Outpatient (CLI) | payer BC ==
[~2021-06-13 14:02] MED LIST changes: -BUPIVACAINE 0.5 % PF 150 MG/30 ML VIAL ONE; -HEPARIN SODIUM, PORCINE 1,000 UNIT/ML VIAL ONE; -IOHEXOL 240MG/ML 50 ML IV ONE; -LIDOCAINE HCL/MPF 1% 30 ML VIAL IJ ONE
[2021-06-13 15:59] LABS: BASOPHILS % (AUTO) 0.7 % (0.0-2.0); HEMATOCRIT 37 % (33-45); HEMOGLOBIN 12.3 g/dL (11.5-14.8); LYMPHOCYTES # (AUTO) 1.8 K/uL (0.8-4.8); LYMPHOCYTES % (AUTO) 25.8 % (20.0-44.0); MEAN CORPUSCULAR HGB CONC 33 g/dl (31.0-36.0); MEAN CORPUSCULAR VOLUME 84 fL (82-100); MONOCYTES # (AUTO) 0.4 K/uL (0.1-1.30); MONOCYTES % (AUTO) 6.1 % (2.0-12.0); NEUTROPHILS # (AUTO) 4.6 K/uL (1.8-8.9); NEUTROPHILS % (AUTO) 65.4 % (43.0-81.0); PLATELET COUNT (AUTO) 271 K/uL (150-450); RED BLOOD CELL COUNT(AUTO) 4.45 MIL/uL (4.0-5.2); WHITE BLOOD COUNT (AUTO) 7.1 K/uL (4.3-11.0)
[2021-06-13 16:17] LABS: ALBUMIN 3.4 g/dL (3.4-5.0); BILIRUBIN,TOTAL 0.2 mg/dL (0.2-1.0); CALCIUM, SERUM 8.4 mg/dL (8.5-10.1); CREATININE 1.4 mg/dL (0.6-1.3); POTASSIUM 3.7 mmol/L (3.5-5.1); TOTAL PROTEIN, SERUM 7.9 g/dL (6.4-8.2)
== END 2021-06-13 23:59 | disposition home or self-care (01) ==
LOC: LAB 14:02
PROVIDERS: ATTEND Internal Medicine Hematology & Oncology
DX: C50.412 Malignant neoplasm of upper-outer quadrant of left female breast (principal); I10 Essential (primary) hypertension
CPT/HCPCS: 36415; 80053-TC; 85025-TC; 86300

== ENCOUNTER 2021-06-28 13:23 | Outpatient (CLI) | payer BC ==
[2021-06-28 13:59] LABS: BASOPHILS % (AUTO) 0.4 % (0.0-2.0); EOSINOPHILS % (AUTO) 0.2 % (0.0-6.0); HEMATOCRIT 37 % (33-45); HEMOGLOBIN 12.1 g/dL (11.5-14.8); LYMPHOCYTES # (AUTO) 1.3 K/uL (0.8-4.8); LYMPHOCYTES % (AUTO) 19.4 % (20.0-44.0); MEAN CORPUSCULAR HGB CONC 33 g/dl (31.0-36.0); MEAN CORPUSCULAR VOLUME 85 fL (82-100); MONOCYTES # (AUTO) 0.6 K/uL (0.1-1.30); MONOCYTES % (AUTO) 8.3 % (2.0-12.0); NEUTROPHILS # (AUTO) 4.9 K/uL (1.8-8.9); NEUTROPHILS % (AUTO) 71.7 % (43.0-81.0); PLATELET COUNT (AUTO) 245 K/uL (150-450); RED BLOOD CELL COUNT(AUTO) 4.36 MIL/uL (4.0-5.2); WHITE BLOOD COUNT (AUTO) 6.9 K/uL (4.3-11.0)
[2021-06-28 14:06] LABS: ALBUMIN 3.4 g/dL (3.4-5.0); BILIRUBIN,TOTAL 0.1 mg/dL (0.2-1.0); CALCIUM, SERUM 9.3 mg/dL (8.5-10.1); CREATININE 1.1 mg/dL (0.6-1.3); POTASSIUM 4.1 mmol/L (3.5-5.1); TOTAL PROTEIN, SERUM 7.8 g/dL (6.4-8.2)
== END 2021-06-28 23:59 | disposition home or self-care (01) ==
LOC: LAB 13:23
PROVIDERS: ATTEND Internal Medicine Hematology & Oncology
DX: C50.412 Malignant neoplasm of upper-outer quadrant of left female breast (principal); I10 Essential (primary) hypertension
CPT/HCPCS: 36415; 80053-TC; 85025-TC

== ENCOUNTER 2021-07-06 09:22 | Inpatient (IN) | payer BC ==
[~2021-07-06] VITALS: Ht 157.5 cm; Wt 70.3 kg
--- NOTE | 2021-07-06 10:00 | NUR ---
To ER bed 7, c/o fever/chills started last night. advised by dr hung to go to ED, aaox3, breathing even and non labored, connected to monitor, saline lock established, blood drawn and picked up by lab
--- NOTE | 2021-07-06 10:08 | NUR ---
dr stern at bedside for eval.
[2021-07-06] MEDS ORDERED: CEFEPIME 1 GM in IV D5W 50 ML IV ONE (10:30)
[2021-07-06] MEDS ORDERED: VANCOMYCIN 1 GM in IV D5W 250 ML IV ONE (10:30)
[2021-07-06] MEDS ORDERED: IV NS 0.9% 1,000 ML BAG IV ONE (10:30)
[2021-07-06] MEDS ORDERED: DILT120C51 PO (10:38)
[2021-07-06] MEDS ORDERED: PROC10TA29 PO (10:38)
[2021-07-06] MEDS ORDERED: DILT60CA2 PO (10:38)
[2021-07-06] MEDS ORDERED: ONDA8TAB65 PO (10:38)
[2021-07-06] MEDS ORDERED: LOSA50TA39 PO (10:38)
[2021-07-06] MEDS ORDERED: DEXA4TAB PO (10:38)
--- NOTE | 2021-07-06 10:39 | NUR ---
GOING TO 316 BED 1.
[2021-07-06] MEDS ORDERED: [UNRECOGNIZED DRUG - REMARK] IV (10:40)
[2021-07-06] MEDS ORDERED: DILT30TA14 PO (10:50)
[2021-07-06 10:59] LABS: BASOPHILS % (AUTO) 0.8 % (0.0-2.0); EOSINOPHILS % (AUTO) 0.8 % (0.0-6.0); HEMATOCRIT 35 % (33-45); HEMOGLOBIN 11.3 g/dL (11.5-14.8); LYMPHOCYTES # (AUTO) 0.5 K/uL (0.8-4.8); MEAN CORPUSCULAR HGB CONC 33 g/dl (31.0-36.0); MEAN CORPUSCULAR VOLUME 84 fL (82-100); MONOCYTES # (AUTO) 0.1 K/uL (0.1-1.30); MONOCYTES % (AUTO) 15.2 % (2.0-12.0); NEUTROPHILS # (AUTO) 0.1 K/uL (1.8-8.9); NEUTROPHILS % (AUTO) 12.2 % (43.0-81.0); PLATELET COUNT (AUTO) 169 K/uL (150-450); RED BLOOD CELL COUNT(AUTO) 4.14 MIL/uL (4.0-5.2)
[2021-07-06 11:01] LABS: BILIRUBIN,URINE NEGATIVE (NEGATIVE); LEUKOCYTE ESTERASE ,URINE NEGATIVE (NEGATIVE); NITRITE, URINE NEGATIVE (NEGATIVE); PROTEIN,URINE 100 mg/dl (NEGATIVE); UGLUCOSE NEGATIVE (NEGATIVE); UROBILINOGEN,URINE 0.2 EU/dL (0.2)
[2021-07-06 11:03] LABS: COLOR,URINE STRAW (YELLOW)
--- NOTE | 2021-07-06 11:05 | NUR ---
REPORT GIVEN TO ALMA GHOTRA FOR VENITA
[2021-07-06 11:27] LABS: CALCIUM, SERUM 8.3 mg/dL (8.5-10.1); CARBON DIOXIDE 28 mmol/L (21-32); CHLORIDE 101 mmol/L (98-107); GLUCOSE 84 mg/dL (74-106); POTASSIUM 4.4 mmol/L (3.5-5.1); SODIUM SERUM 137 mmol/L (136-145); UREA NITROGEN, BLOOD 17 mg/dL (7-18)
[2021-07-06 11:42] LABS: ALANINE AMINOTRANSFERASE 30 U/L (12-78); ALBUMIN 3.1 g/dL (3.4-5.0); ALKALINE PHOSPHATASE 91 U/L (46-116); ASPARTATE AMINOTRANSFERASE 19 U/L (15-37); BILIRUBIN,DIRECT 0.1 mg/dL (0.0-0.2); BILIRUBIN,TOTAL 0.6 mg/dL (0.2-1.0); TOTAL PROTEIN, SERUM 7.3 g/dL (6.4-8.2)
[2021-07-06 11:47] LABS: WHITE BLOOD COUNT (AUTO) 0.7 K/uL (4.3-11.0)
[2021-07-06 11:59] LABS: LYMPHOCYTES % (MANUAL) 72 % (16-48); MONOCYTES % (MANUAL) 15 % (0-11.0); NEUTROPHILS % (MANUAL) 13 (42-76)
[2021-07-06 12:02] LABS: BACTERIA,URINE None seen /HPF (None Seen); RBC,URINE 0-2 /HPF (0-2); SQUAMOUS EPITHELIAL CELL,UR Few /HPF (None Seen); WBC,URINE NONE SEEN /HPF (0-3)
--- NOTE | 2021-07-06 12:24 | NUR ---
DR VELAZQUEZ TALKING TO DR CAUSEY ON THE PHONE.
[2021-07-06 12:50] VITALS: BP 160/97
--- NOTE | 2021-07-06 13:00 | NUR ---
MS RN ADMITTING NOTS RECEIVED PATIENT FROM E. VIA [facility], PATIENT IS AWAKE, AMBULATORY, ON ROOM AIR, NO RESPIRATORY DISTRESS NOTED. VITAL SIGNS TAKEN AND RECORDED. IV ACCESS ON RAC G# 20, PATENT AND FLUSHES WELL. STARTED ON IVF OF NSS 1L X 75CC/HR, INFUSING WELL, NO S/SX OF INFILTRATION NOTED. SAFETY PRECAUTIONS IN PLACE: BED ON LOWEST LOCKED POSITION, SIDE RAILS UP X 2, CALL LIGHT WITHIN EASY REACH. ON REVERSE ISOLATION. WILL CONTINUE TO MONITOR ACCORDINGLY.
[2021-07-06] MEDS: IV NS 0.9% 1,000 ML IV PRN ×2 (13:13→23:55)
[2021-07-06] MEDS ORDERED: ONDANSETRON HCL/PF 4 MG/2 ML VIAL IVP PRN ×2 (13:30→14:00)
[2021-07-06] MEDS ORDERED: ACETAMINOPHEN 325 MG TABLET PO PRN ×2 (13:30→14:00)
[2021-07-06] MEDS ORDERED: ONDANSETRON HCL/PF 4 MG/2 ML VIAL IV PRN (13:30)
[2021-07-06] MEDS ORDERED: Z GUARD REMEDY 2 OZ OINT TP PRN (14:00)
[2021-07-06] MEDS ORDERED: CEFEPIME 2 GM in IV D5W 100 ML IV SCH (14:00)
[2021-07-06] MEDS ORDERED: ZOLPIDEM TARTRATE 5 MG TABLET PO PRN (14:00)
[2021-07-06] MEDS ORDERED: ONDANSETRON 4 MG TAB.RAPDIS SL PRN (14:00)
[2021-07-06] MEDS: FLUCONAZOLE IN NS 100 MG in PREMIX 1 EA IV SCH (14:34)
[2021-07-06 16:00] VITALS: BP 170/101
[2021-07-06] MEDS: VANCOMYCIN 1 GM in IV D5W 250 ML IV SCH (17:41)
--- NOTE | 2021-07-06 18:46 | NUR ---
MS RN CLOSING NOTES PATIENT IS AWAKE, IN BED, ON ROOM AIR, NO RESPIRATORY DISTRESS NOTED. ONGOING IVF OF NSS 1L X 75CC/HR, INFUSING WELL ON RAC G#20, NO S/SX OF INFILTRATION NOTED. NO COMPLAINTS OF PAIN AT THIS TIME. SAFETY PRECAUTIONS IN PLACE: BED ON LOWEST LOCKED POSITION, SIDE RAILS UP X 2, CALL LIGHT WITHIN EASY REACH. ON REVERSE ISOLATION. ALL NEEDS ATTENDED AND MET, ALL DUE MEDS GIVEN ORDERED. WILL ENDORSE TO ONCOMING SHIFT FOR VENITA.
--- NOTE | 2021-07-06 19:35 | NUR ---
RN NOTES Received patient awake on bed,a/ox4. ambulatory, denies pain, no SOB, call light within reach, siderail;supx2, will continue to monitor
[2021-07-06 20:00] VITALS: BP 143/111
--- NOTE | 2021-07-06 20:10 | NUR ---
BRANDIN NOTES Patient complainde od constipation, got an order from Dr. Jerson Brown 100mg po BID, order noted and carried out Addendum: 07/06/21 at 2010 by KAYLIN MONTALVO RN patient complained
[2021-07-06] MEDS: CEFEPIME 2 GM in IV D5W 100 ML IV SCH (20:57)
[2021-07-06] MEDS: DOCUSATE SODIUM 100 MG CAPSULE PO SCH (20:57)
[2021-07-06 21:00] VITALS: BP 146/88
[2021-07-06] MEDS ORDERED: VANCOMYCIN 1 GM in IV D5W 250 ML IV SCH (22:00)
[2021-07-07] MEDS: VANCOMYCIN 1 GM in IV D5W 250 ML IV SCH ×3 (01:50→17:36)
--- NOTE | 2021-07-07 06:29 | NUR ---
RN NOTES Awake denies pain, no SOB, morning care rendered, call light within reach, siderailsupx2, pt. needs attended
[2021-07-07 06:52] LABS: BASOPHILS % (AUTO) 1.4 % (0.0-2.0); EOSINOPHILS % (AUTO) 0.6 % (0.0-6.0); HEMATOCRIT 31 % (33-45); HEMOGLOBIN 10.2 g/dL (11.5-14.8); LYMPHOCYTES # (AUTO) 0.4 K/uL (0.8-4.8); LYMPHOCYTES % (AUTO) 45.8 % (20.0-44.0); MEAN CORPUSCULAR HGB CONC 33 g/dl (31.0-36.0); MEAN CORPUSCULAR VOLUME 83 fL (82-100); MONOCYTES # (AUTO) 0.2 K/uL (0.1-1.30); MONOCYTES % (AUTO) 23.2 % (2.0-12.0); NEUTROPHILS # (AUTO) 0.3 K/uL (1.8-8.9); PLATELET COUNT (AUTO) 156 K/uL (150-450)
[2021-07-07 07:12] LABS: WHITE BLOOD COUNT (AUTO) 0.9 K/uL (4.3-11.0)
[2021-07-07 07:28] LABS: ALBUMIN 2.7 g/dL (3.4-5.0); BILIRUBIN,TOTAL 0.5 mg/dL (0.2-1.0); CALCIUM, SERUM 8.4 mg/dL (8.5-10.1); MAGNESIUM 2.2 mg/dL (1.8-2.4); PHOSPHORUS 3.6 mg/dL (2.5-4.9); POTASSIUM 3.9 mmol/L (3.5-5.1); TOTAL PROTEIN, SERUM 6.5 g/dL (6.4-8.2)
--- NOTE | 2021-07-07 07:30 | NUR ---
MS RN OPENING NOTES RECEIVED PATIENT AWAKE, IN BED, ON ROOM AIR, NO RESPIRATORY DISTRESS NOTED. ONGOING IVF OF NSS 1L X 75CC/HR, INFUSING WELL ON RAC G#20, NO S/SX OF INFILTRATION NOTED. NO COMPLAINTS OF PAIN AT THIS TIME. SAFETY PRECAUTIONS IN PLACE: BED ON LOWEST LOCKED POSITION, SIDE RAILS UP X 2, CALL LIGHT WITHIN EASY REACH. ON REVERSE ISOLATION. WILL CONTINUE TO MONITOR ACCORDINGLY.
[2021-07-07 08:00] VITALS: BP 134/91
[2021-07-07 08:04] LABS: THYROID STIMULATING HORMONE 0.491 uIU/mL (0.358-3.74)
[2021-07-07] MEDS: PANTOPRAZOLE 40 MG TABLET.DR PO SCH (08:27)
[2021-07-07] MEDS: DOCUSATE SODIUM 100 MG CAPSULE PO SCH ×2 (08:27→16:35)
[2021-07-07] MEDS: CEFEPIME 2 GM in IV D5W 100 ML IV SCH ×2 (08:28→20:03)
[2021-07-07 08:50] LABS: BAND % (MANUAL) 1 % (0.0-5.0); EOSINOPHILS % (MANUAL) 3 % (0-4); LYMPHOCYTES % (MANUAL) 58 % (16-48); MONOCYTES % (MANUAL) 14 % (0-11.0); NEUTROPHILS % (MANUAL) 24 (42-76)
[2021-07-07] MEDS: FLUCONAZOLE IN NS 100 MG in PREMIX 1 EA IV SCH (14:08)
[2021-07-07 16:00] VITALS: BP 139/89
--- NOTE | 2021-07-07 18:34 | NUR ---
MS RN CLOSING NOTES PATIENT IS AWAKE, IN BED, ON ROOM AIR, NO RESPIRATORY DISTRESS NOTED. ONGOING IVF OF NSS 1L X 75CC/HR, INFUSING WELL ON RIGHT HAND G#20, NO S/SX OF INFILTRATION NOTED. NO COMPLAINTS OF PAIN AT THIS TIME. SAFETY PRECAUTIONS IN PLACE: BED ON LOWEST LOCKED POSITION, SIDE RAILS UP X 2, CALL LIGHT WITHIN EASY REACH. ON REVERSE ISOLATION. ALL NEEDS ATTENDED AND MET, ALL DUE MEDS GIVEN ORDERED. WILL ENDORSE TO ONCOMING SHIFT FOR VENITA.
--- NOTE | 2021-07-07 19:43 | NUR ---
MS RN OPENING NOTES RECEIVED PATIENT IN BED, IN BED. AOx4. ABLE TO MAKE NEEDS KNOWN. ON ROOM AIR AND TOLERATING WELL. NO SOB NOTED. NO S/SX OF RESPIRATORY DISTRESS NOTED. NO RESPIRATORY DISTRESS NOTED.IV ACCESS IN R HAND #20G RUNNING NS @ 75 ML/HR. SAFETY PRECAUTIONS IN PLACE: BED IN LOWEST, LOCKED POSITION, SIDE RAILS UP X 2, BRAKES ON. CALL LIGHT AND TBALE WITHIN REACH. ON REVERSE ISOLATION. WILL CONTINUE TO MONITOR.
[2021-07-07 20:00] VITALS: BP 131/91
[2021-07-08] MEDS: VANCOMYCIN 1 GM in IV D5W 250 ML IV SCH ×2 (01:14→11:39)
[2021-07-08] MEDS: IV NS 0.9% 1,000 ML IV PRN (02:40)
--- NOTE | 2021-07-08 06:52 | NUR ---
MS RN CLOSING NOTES PATIENT IN BED, ASLEEP, AWAKENS TO VERBAL STIMULI. AOx4. ABLE TO MAKE NEEDS KNOWN. ON ROOM AIR AND TOLERATING WELL. NO SOB NOTED. NO S/SX OF RESPIRATORY DISTRESS NOTED. NO RESPIRATORY DISTRESS NOTED.IV ACCESS IN R HAND #20G RUNNING NS @ 75 ML/HR. ALL NEEDS MET. PT KEPT CLEAN AND DRY. SAFETY PRECAUTIONS IN PLACE: BED IN LOWEST, LOCKED POSITION, SIDE RAILS UP X 2, BRAKES ON. CALL LIGHT AND TABLE WITHIN REACH. ON REVERSE ISOLATION. WILL ENDORSE TO ONCOMING SHIFT.
[2021-07-08 08:00] VITALS: BP 123/88
--- NOTE | 2021-07-08 09:00 | NUR ---
MS/RN OPENING NOTES RECEIVED PATIENT IN BED, IN BED. AOx4. ABLE TO MAKE NEEDS KNOWN. ON ROOM AIR AND TOLERATING WELL. NO SOB NOTED. NO S/SX OF RESPIRATORY DISTRESS NOTED. NO RESPIRATORY DISTRESS NOTED.IV ACCESS IN R HAND #20G RUNNING NS @ 75 ML/HR. SAFETY PRECAUTIONS IN PLACE: BED IN LOWEST, LOCKED POSITION, SIDE RAILS UP X 2, BRAKES ON. CALL LIGHT AND TABLE WITHIN REACH. ON REVERSE ISOLATION. WILL CONTINUE TO MONITOR.
[2021-07-08] MEDS: DILTIAZEM HCL CD 120 MG PO SCH (10:30)
[2021-07-08] MEDS: PANTOPRAZOLE 40 MG TABLET.DR PO SCH (10:30)
[2021-07-08] MEDS: LOSARTAN POTASSIUM 50 MG TABLET PO SCH (10:31)
[2021-07-08] MEDS: DOCUSATE SODIUM 100 MG CAPSULE PO SCH ×2 (10:31→17:23)
[2021-07-08] MEDS: CEFEPIME 2 GM in IV D5W 100 ML IV SCH ×2 (10:41→20:48)
[2021-07-08 12:15] LABS: BASOPHILS % (AUTO) 1.2 % (0.0-2.0); EOSINOPHILS % (AUTO) 0.2 % (0.0-6.0); HEMATOCRIT 32 % (33-45); HEMOGLOBIN 10.6 g/dL (11.5-14.8); LYMPHOCYTES # (AUTO) 0.6 K/uL (0.8-4.8); MEAN CORPUSCULAR HGB CONC 33 g/dl (31.0-36.0); MEAN CORPUSCULAR VOLUME 85 fL (82-100); MONOCYTES # (AUTO) 0.4 K/uL (0.1-1.30); MONOCYTES % (AUTO) 18.8 % (2.0-12.0); NEUTROPHILS # (AUTO) 1.1 K/uL (1.8-8.9); NEUTROPHILS % (AUTO) 51.8 % (43.0-81.0); PLATELET COUNT (AUTO) 204 K/uL (150-450); WHITE BLOOD COUNT (AUTO) 2.2 K/uL (4.3-11.0)
[2021-07-08 13:49] LABS: BAND % (MANUAL) 2 % (0.0-5.0); LYMPHOCYTES % (MANUAL) 28 % (16-48); MONOCYTES % (MANUAL) 15 % (0-11.0); NEUTROPHILS % (MANUAL) 55 (42-76)
[2021-07-08] MEDS: FLUCONAZOLE IN NS 100 MG in PREMIX 1 EA IV SCH (15:09)
[2021-07-08 16:00] VITALS: BP 132/87
[2021-07-08] MEDS: VANCOMYCIN 0.75 GM in IV D5W 250 ML IV SCH (17:24)
[2021-07-08] MEDS: HYDROCORTISONE CR 30 GM TUBE RC SCH (17:24)
[2021-07-08 20:00] VITALS: BP 141/94
--- NOTE | 2021-07-08 20:49 | NUR ---
RECEIVED IN BED ALERT and orientated x4 smiling c/o right hand IV hurting removed and restarted with g22 right FA IV rsume reverse isolation continued denies pain
[2021-07-08 21:21] VITALS: BP 121/74
[2021-07-09] MEDS: IV NS 0.9% 1,000 ML IV PRN (00:40)
[2021-07-09] MEDS: VANCOMYCIN 0.75 GM in IV D5W 250 ML IV SCH ×2 (01:46→10:28)
--- NOTE | 2021-07-09 04:24 | NUR ---
ENDING NOTES: IN GOOD SPIRITS ANBIEN GIVEN AND SLEPT THRU THE NIGHT REVERSE ISOLIATION D/T WBC 2.2 AMBULATES TO THE BATHROOM STEADY ON HER LEGS NO NAUSEA THIS 12 HOURS
[2021-07-09 08:00] VITALS: BP 142/92
--- NOTE | 2021-07-09 08:00 | NUR ---
received pt. in am alert and oriented x4.no complaints offered.
[2021-07-09] MEDS: CEFEPIME 2 GM in IV D5W 100 ML IV SCH (08:26)
[2021-07-09] MEDS: LOSARTAN POTASSIUM 50 MG TABLET PO SCH (08:36)
[2021-07-09] MEDS: PANTOPRAZOLE 40 MG TABLET.DR PO SCH (08:36)
[2021-07-09 08:37] VITALS: BP 142/92
[2021-07-09] MEDS: DOCUSATE SODIUM 100 MG CAPSULE PO SCH (08:37)
[2021-07-09] MEDS: DILTIAZEM HCL CD 120 MG PO SCH (08:37)
[2021-07-09] MEDS: HYDROCORTISONE CR 30 GM TUBE RC SCH (08:53)
--- NOTE | 2021-07-09 10:30 | NUR ---
dr. goss in and dc order given,pending ok from oncologist dr. hung.insulation cupola charger texted dr. hung and she gave ok. rn to finish vanco antibiotic.
--- NOTE | 2021-07-09 13:40 | NUR ---
DC PAPERS MADE READY,SIGNATURES OBTAINED,HEP LOCK REMOVED.PT. MADE AWARE OF MEDS TO TAKE.TAKEN TO LOBBY BY SERVICE MEMBER,SPOUSE WAITING FOR PT.FOR DISCHARGE.
[2021-07-09] MEDS ORDERED: FLUCONAZOLE (100 MG) 100 MG TABLET PO SCH (14:00)
--- NOTE | 2021-07-09 14:10 | NUR ---
DR. MARTINEZ IN ,LEFT ANTIBIOTIC RX FOR PT. RX FAXED TO PT'S PHARMACY.CALL TO PT'S HOME.LEFT VOICE MAIL RE: RX.PT. DC'D PRIOR TO ANTIBIOTIC PRESCRIPTION BEING WRITTEN.
== END 2021-07-09 13:45 | disposition home or self-care (01) | DRG 809 ==
LOC: ER 09:30 → MED 10:55
PROVIDERS: ADMIT Nurse Practitioner Acute Care; ATTEND Legal Medicine
DX: D70.1 Agranulocytosis secondary to cancer chemotherapy (principal); I47.1 Supraventricular tachycardia; C77.3 Secondary and unspecified malignant neoplasm of axilla and upper limb lymph nodes; D70.9 Neutropenia, unspecified; R50.81 Fever presenting with conditions classified elsewhere; D61.818 Other pancytopenia; D68.59 Other primary thrombophilia; I12.9 Hypertensive chronic kidney disease with stage 1 through stage 4 chronic kidney disease, or unspecified chronic kidney disease; N18.9 Chronic kidney disease, unspecified; D64.9 Anemia, unspecified; C50.912 Malignant neoplasm of unspecified site of left female breast; E11.22 Type 2 diabetes mellitus with diabetic chronic kidney disease; T45.1X5A Adverse effect of antineoplastic and immunosuppressive drugs, initial encounter; Z17.1 Estrogen receptor negative status [ER-]; Z82.49 Family history of ischemic heart disease and other diseases of the circulatory system; Z83.3 Family history of diabetes mellitus; Z87.440 Personal history of urinary (tract) infections; E78.5 Hyperlipidemia, unspecified; I48.91 Unspecified atrial fibrillation; Z98.890 Other specified postprocedural states; Z88.8 Allergy status to other drugs, medicaments and biological substances; Z79.899 Other long term (current) drug therapy; Y92.89 Other specified places as the place of occurrence of the external cause
CPT/HCPCS: 36415; 71045-TC; 80048-TC; 80053-TC; 80061-TC; 80076-TC; 80202-TC; 81001; 83540-TC; 83605-TC; 83735-TC; 84100-TC; 84443-TC; 84484-TC; 84703-TC; 85025-TC; 85045-TC; 85730-TC; 87040-TC; 87081-TC; 87086-TC; A4216; G0378; J0692; J1450; J3370; J7030; J7060

== ENCOUNTER 2021-07-18 10:35 | Outpatient (CLI) | payer BC ==
[~2021-07-18 10:35] MED LIST changes: -BENA20TA9 PO; +DILT120C51 PO; +DILT30TA14 PO; +LOSA50TA39 PO; -METO50TA16 PO; +ONDA8TAB65 PO; +PROC10TA29 PO; +[UNRECOGNIZED DRUG - REMARK] IV
[2021-07-18 11:36] LABS: ALBUMIN 3.3 g/dL (3.4-5.0); BILIRUBIN,TOTAL 0.2 mg/dL (0.2-1.0); CALCIUM, SERUM 9.1 mg/dL (8.5-10.1); POTASSIUM 3.9 mmol/L (3.5-5.1); TOTAL PROTEIN, SERUM 7.7 g/dL (6.4-8.2)
[2021-07-18 11:50] LABS: BASOPHILS % (AUTO) 0.7 % (0.0-2.0); EOSINOPHILS % (AUTO) 0.1 % (0.0-6.0); HEMATOCRIT 36 % (33-45); HEMOGLOBIN 11.6 g/dL (11.5-14.8); LYMPHOCYTES % (AUTO) 16.2 % (20.0-44.0); MEAN CORPUSCULAR HGB CONC 33 g/dl (31.0-36.0); MEAN CORPUSCULAR VOLUME 84 fL (82-100); MONOCYTES # (AUTO) 0.8 K/uL (0.1-1.30); MONOCYTES % (AUTO) 12.2 % (2.0-12.0); NEUTROPHILS # (AUTO) 4.4 K/uL (1.8-8.9); NEUTROPHILS % (AUTO) 70.8 % (43.0-81.0); PLATELET COUNT (AUTO) 395 K/uL (150-450); WHITE BLOOD COUNT (AUTO) 6.2 K/uL (4.3-11.0)
== END 2021-07-18 23:59 | disposition home or self-care (01) ==
LOC: LAB 10:35
PROVIDERS: ATTEND Internal Medicine Hematology & Oncology
DX: C50.412 Malignant neoplasm of upper-outer quadrant of left female breast (principal); I10 Essential (primary) hypertension
CPT/HCPCS: 36415; 80053-TC; 85025-TC

== ENCOUNTER 2021-07-26 18:44 | Emergency (ER) | payer BC ==
[~2021-07-26] VITALS: Ht 157.5 cm; Wt 74.8 kg
--- NOTE | 2021-07-26 18:53 | NUR ---
TO ER BED 5 C/O FEVER STARTED THIS AFTERNOON, ON CHEMO FOR BREAST CANCER, AAOX3, BREATHING EVEN AND NON LABORED, CONNECTED TO MONITOR, AWAITING MD HOLMAN.
--- NOTE | 2021-07-26 19:13 | NUR ---
Patient discharged to home in stable condition. Written and verbal after care instructions given. Patient verbalizes understanding of instruction.
[2021-07-26 19:14] VITALS: BP 159/105
== END 2021-07-26 19:14 | disposition home or self-care (01) ==
LOC: ER 18:47
DX: R50.9 Fever, unspecified (principal); I10 Essential (primary) hypertension; I48.91 Unspecified atrial fibrillation; Z98.890 Other specified postprocedural states; Z88.6 Allergy status to analgesic agent; Z79.899 Other long term (current) drug therapy; Z92.25 Personal history of immunosuppression therapy; Z85.3 Personal history of malignant neoplasm of breast

== ENCOUNTER 2021-07-27 10:29 | Outpatient (CLI) | payer BC ==
[2021-07-27 11:03] LABS: BASOPHILS % (AUTO) 0.3 % (0.0-2.0); EOSINOPHILS % (AUTO) 0.5 % (0.0-6.0); HEMATOCRIT 34 % (33-45); HEMOGLOBIN 11.2 g/dL (11.5-14.8); LYMPHOCYTES # (AUTO) 0.3 K/uL (0.8-4.8); LYMPHOCYTES % (AUTO) 21.8 % (20.0-44.0); MEAN CORPUSCULAR HGB CONC 33 g/dl (31.0-36.0); MEAN CORPUSCULAR VOLUME 85 fL (82-100); MONOCYTES # (AUTO) 0.2 K/uL (0.1-1.30); MONOCYTES % (AUTO) 11.8 % (2.0-12.0); NEUTROPHILS % (AUTO) 65.6 % (43.0-81.0); PLATELET COUNT (AUTO) 215 K/uL (150-450); RED BLOOD CELL COUNT(AUTO) 3.99 MIL/uL (4.0-5.2)
[2021-07-27 11:25] LABS: WHITE BLOOD COUNT (AUTO) 1.6 K/uL (4.3-11.0)
[2021-07-27 11:40] LABS: ALBUMIN 3.1 g/dL (3.4-5.0); BILIRUBIN,TOTAL 0.5 mg/dL (0.2-1.0); CALCIUM, SERUM 8.6 mg/dL (8.5-10.1); CREATININE 0.9 mg/dL (0.6-1.3); POTASSIUM 4.4 mmol/L (3.5-5.1); TOTAL PROTEIN, SERUM 6.6 g/dL (6.4-8.2)
[2021-07-27 17:01] LABS: BAND % (MANUAL) 2 % (0.0-5.0); LYMPHOCYTES % (MANUAL) 24 % (16-48); MONOCYTES % (MANUAL) 14 % (0-11.0); NEUTROPHILS % (MANUAL) 60 (42-76)
== END 2021-07-27 23:59 | disposition home or self-care (01) ==
LOC: LAB 10:29
PROVIDERS: ATTEND Internal Medicine Hematology & Oncology
DX: C50.919 Malignant neoplasm of unspecified site of unspecified female breast (principal); R50.9 Fever, unspecified
CPT/HCPCS: 36415; 80053-TC; 85025-TC; 87040-TC

== ENCOUNTER 2021-08-01 10:11 | Outpatient (CLI) | payer BC ==
[2021-08-01 11:01] LABS: BASOPHILS % (AUTO) 0.9 % (0.0-2.0); EOSINOPHILS % (AUTO) 0.5 % (0.0-6.0); HEMATOCRIT 31 % (33-45); HEMOGLOBIN 10.3 g/dL (11.5-14.8); LYMPHOCYTES # (AUTO) 0.6 K/uL (0.8-4.8); LYMPHOCYTES % (AUTO) 11.8 % (20.0-44.0); MEAN CORPUSCULAR HGB CONC 34 g/dl (31.0-36.0); MEAN CORPUSCULAR VOLUME 85 fL (82-100); MONOCYTES # (AUTO) 0.7 K/uL (0.1-1.30); MONOCYTES % (AUTO) 13.5 % (2.0-12.0); NEUTROPHILS # (AUTO) 3.8 K/uL (1.8-8.9); NEUTROPHILS % (AUTO) 73.3 % (43.0-81.0); PLATELET COUNT (AUTO) 139 K/uL (150-450); RED BLOOD CELL COUNT(AUTO) 3.59 MIL/uL (4.0-5.2); WHITE BLOOD COUNT (AUTO) 5.1 K/uL (4.3-11.0)
[2021-08-01 11:15] LABS: ALBUMIN 2.9 g/dL (3.4-5.0); BILIRUBIN,TOTAL 0.1 mg/dL (0.2-1.0); CALCIUM, SERUM 8.4 mg/dL (8.5-10.1); CREATININE 1.2 mg/dL (0.6-1.3); POTASSIUM 4.2 mmol/L (3.5-5.1); TOTAL PROTEIN, SERUM 6.4 g/dL (6.4-8.2)
[2021-08-01 11:59] LABS: BAND % (MANUAL) 1 % (0.0-5.0); LYMPHOCYTES % (MANUAL) 6 % (16-48); MONOCYTES % (MANUAL) 10 % (0-11.0); NEUTROPHILS % (MANUAL) 83 (42-76)
== END 2021-08-01 23:59 | disposition home or self-care (01) ==
LOC: LAB 10:11
PROVIDERS: ATTEND Internal Medicine Hematology & Oncology
DX: C50.919 Malignant neoplasm of unspecified site of unspecified female breast (principal); R50.9 Fever, unspecified
CPT/HCPCS: 36415; 80053-TC; 85025-TC

== ENCOUNTER 2021-08-15 13:30 | Outpatient (CLI) | payer BC ==
[2021-08-15 14:20] LABS: BASOPHILS % (AUTO) 0.7 % (0.0-2.0); EOSINOPHILS % (AUTO) 0.1 % (0.0-6.0); HEMATOCRIT 31 % (33-45); HEMOGLOBIN 10.4 g/dL (11.5-14.8); LYMPHOCYTES # (AUTO) 0.5 K/uL (0.8-4.8); LYMPHOCYTES % (AUTO) 8.2 % (20.0-44.0); MEAN CORPUSCULAR HGB CONC 33 g/dl (31.0-36.0); MEAN CORPUSCULAR VOLUME 87 fL (82-100); MONOCYTES # (AUTO) 0.6 K/uL (0.1-1.30); MONOCYTES % (AUTO) 8.9 % (2.0-12.0); NEUTROPHILS # (AUTO) 5.2 K/uL (1.8-8.9); NEUTROPHILS % (AUTO) 82.1 % (43.0-81.0); PLATELET COUNT (AUTO) 201 K/uL (150-450); RED BLOOD CELL COUNT(AUTO) 3.59 MIL/uL (4.0-5.2); WHITE BLOOD COUNT (AUTO) 6.3 K/uL (4.3-11.0)
[2021-08-15 16:09] LABS: ALBUMIN 3.2 g/dL (3.4-5.0); BILIRUBIN,TOTAL 0.1 mg/dL (0.2-1.0); CALCIUM, SERUM 9.4 mg/dL (8.5-10.1); CREATININE 1.3 mg/dL (0.6-1.3); POTASSIUM 3.8 mmol/L (3.5-5.1); TOTAL PROTEIN, SERUM 6.9 g/dL (6.4-8.2)
[2021-08-15 19:47] LABS: BAND % (MANUAL) 3 % (0.0-5.0); LYMPHOCYTES % (MANUAL) 13 % (16-48); MONOCYTES % (MANUAL) 7 % (0-11.0); NEUTROPHILS % (MANUAL) 77 (42-76)
== END 2021-08-15 23:59 | disposition home or self-care (01) ==
LOC: LAB 13:30
PROVIDERS: ATTEND Internal Medicine Hematology & Oncology
DX: C50.412 Malignant neoplasm of upper-outer quadrant of left female breast (principal); I10 Essential (primary) hypertension
CPT/HCPCS: 36415; 80053-TC; 85025-TC

== ENCOUNTER → 2021-08-29 | Outpatient (CLI) | payer BC ==
[2021-08-29 14:23] LABS: BASOPHILS % (AUTO) 0.2 % (0.0-2.0); EOSINOPHILS % (AUTO) 0.6 % (0.0-6.0); HEMATOCRIT 31 % (33-45); LYMPHOCYTES # (AUTO) 0.9 K/uL (0.8-4.8); LYMPHOCYTES % (AUTO) 6.3 % (20.0-44.0); MEAN CORPUSCULAR HGB CONC 33 g/dl (31.0-36.0); MEAN CORPUSCULAR VOLUME 88 fL (82-100); MONOCYTES # (AUTO) 1.3 K/uL (0.1-1.30); MONOCYTES % (AUTO) 9.1 % (2.0-12.0); NEUTROPHILS # (AUTO) 11.8 K/uL (1.8-8.9); NEUTROPHILS % (AUTO) 83.8 % (43.0-81.0); PLATELET COUNT (AUTO) 151 K/uL (150-450); RED BLOOD CELL COUNT(AUTO) 3.48 MIL/uL (4.0-5.2); WHITE BLOOD COUNT (AUTO) 14.1 K/uL (4.3-11.0)
[2021-08-29 14:31] LABS: BILIRUBIN,TOTAL 0.2 mg/dL (0.2-1.0); CALCIUM, SERUM 8.7 mg/dL (8.5-10.1); CREATININE 1.4 mg/dL (0.6-1.3); POTASSIUM 3.7 mmol/L (3.5-5.1); TOTAL PROTEIN, SERUM 7.1 g/dL (6.4-8.2)
== END | disposition home or self-care (01) ==
LOC: LAB 13:22
PROVIDERS: ATTEND Internal Medicine Hematology & Oncology
DX: C50.412 Malignant neoplasm of upper-outer quadrant of left female breast (principal); I10 Essential (primary) hypertension
CPT/HCPCS: 36415; 80053-TC; 85025-TC

== ENCOUNTER 2021-09-12 12:25 | Outpatient (CLI) | payer BC ==
[2021-09-12 12:45] LABS: BASOPHILS % (AUTO) 0.5 % (0.0-2.0); EOSINOPHILS % (AUTO) 1.9 % (0.0-6.0); HEMATOCRIT 29 % (33-45); HEMOGLOBIN 9.7 g/dL (11.5-14.8); LYMPHOCYTES # (AUTO) 1.2 K/uL (0.8-4.8); MEAN CORPUSCULAR HGB CONC 33 g/dl (31.0-36.0); MEAN CORPUSCULAR VOLUME 89 fL (82-100); MONOCYTES # (AUTO) 0.8 K/uL (0.1-1.30); MONOCYTES % (AUTO) 8.6 % (2.0-12.0); NEUTROPHILS # (AUTO) 7.5 K/uL (1.8-8.9); PLATELET COUNT (AUTO) 208 K/uL (150-450); RED BLOOD CELL COUNT(AUTO) 3.32 MIL/uL (4.0-5.2); WHITE BLOOD COUNT (AUTO) 9.8 K/uL (4.3-11.0)
[2021-09-12 12:59] LABS: ALBUMIN 3.2 g/dL (3.4-5.0); BILIRUBIN,TOTAL 0.2 mg/dL (0.2-1.0); CREATININE 1.3 mg/dL (0.6-1.3); POTASSIUM 4.3 mmol/L (3.5-5.1); TOTAL PROTEIN, SERUM 7.2 g/dL (6.4-8.2)
== END 2021-09-12 23:59 | disposition home or self-care (01) ==
LOC: LAB 12:25
PROVIDERS: ATTEND Internal Medicine Hematology & Oncology
DX: D59.9 Acquired hemolytic anemia, unspecified (principal); Z13.228 Encounter for screening for other metabolic disorders
CPT/HCPCS: 36415; 80053-TC; 85025-TC

== ENCOUNTER 2021-09-26 10:28 | Outpatient (CLI) | payer BC ==
[2021-09-26 11:47] LABS: BASOPHILS % (AUTO) 0.3 % (0.0-2.0); EOSINOPHILS % (AUTO) 0.8 % (0.0-6.0); HEMATOCRIT 32 % (33-45); HEMOGLOBIN 10.4 g/dL (11.5-14.8); LYMPHOCYTES # (AUTO) 1.2 K/uL (0.8-4.8); LYMPHOCYTES % (AUTO) 18.1 % (20.0-44.0); MEAN CORPUSCULAR HGB CONC 32 g/dl (31.0-36.0); MEAN CORPUSCULAR VOLUME 90 fL (82-100); MONOCYTES # (AUTO) 0.5 K/uL (0.1-1.30); MONOCYTES % (AUTO) 7.4 % (2.0-12.0); NEUTROPHILS # (AUTO) 4.9 K/uL (1.8-8.9); NEUTROPHILS % (AUTO) 73.4 % (43.0-81.0); PLATELET COUNT (AUTO) 169 K/uL (150-450); RED BLOOD CELL COUNT(AUTO) 3.59 MIL/uL (4.0-5.2); WHITE BLOOD COUNT (AUTO) 6.6 K/uL (4.3-11.0)
[2021-09-26 14:30] LABS: ALBUMIN 3.4 g/dL (3.4-5.0); BILIRUBIN,TOTAL 0.3 mg/dL (0.2-1.0); CREATININE 1.1 mg/dL (0.6-1.3); POTASSIUM 4.4 mmol/L (3.5-5.1); TOTAL PROTEIN, SERUM 7.2 g/dL (6.4-8.2)
== END 2021-09-26 23:59 | disposition home or self-care (01) ==
LOC: LAB 10:28
PROVIDERS: ATTEND Internal Medicine Hematology & Oncology
DX: D53.9 Nutritional anemia, unspecified (principal); Z13.228 Encounter for screening for other metabolic disorders
CPT/HCPCS: 36415; 80053-TC; 85025-TC

== ENCOUNTER 2021-10-10 14:44 | Outpatient (CLI) | payer BC ==
[2021-10-10 15:29] LABS: BASOPHILS % (AUTO) 0.6 % (0.0-2.0); EOSINOPHILS % (AUTO) 1.7 % (0.0-6.0); HEMATOCRIT 33 % (33-45); HEMOGLOBIN 10.8 g/dL (11.5-14.8); LYMPHOCYTES # (AUTO) 1.5 K/uL (0.8-4.8); LYMPHOCYTES % (AUTO) 18.4 % (20.0-44.0); MEAN CORPUSCULAR HGB CONC 33 g/dl (31.0-36.0); MEAN CORPUSCULAR VOLUME 90 fL (82-100); MONOCYTES # (AUTO) 0.4 K/uL (0.1-1.30); MONOCYTES % (AUTO) 5.1 % (2.0-12.0); NEUTROPHILS # (AUTO) 6.1 K/uL (1.8-8.9); NEUTROPHILS % (AUTO) 74.2 % (43.0-81.0); PLATELET COUNT (AUTO) 175 K/uL (150-450); RED BLOOD CELL COUNT(AUTO) 3.67 MIL/uL (4.0-5.2); WHITE BLOOD COUNT (AUTO) 8.2 K/uL (4.3-11.0)
[2021-10-10 15:58] LABS: ALBUMIN 3.5 g/dL (3.4-5.0); BILIRUBIN,TOTAL 0.2 mg/dL (0.2-1.0); CREATININE 1.2 mg/dL (0.6-1.3); POTASSIUM 3.8 mmol/L (3.5-5.1); TOTAL PROTEIN, SERUM 7.4 g/dL (6.4-8.2)
[2021-10-11 06:07] LABS: CANCER AG, 15-3 24.8 U/mL (0.0-25.0)
== END 2021-10-10 23:59 | disposition home or self-care (01) ==
LOC: LAB 14:44
PROVIDERS: ATTEND Internal Medicine Hematology & Oncology
DX: D53.9 Nutritional anemia, unspecified (principal); R97.1 Elevated cancer antigen 125 [CA 125]; Z13.228 Encounter for screening for other metabolic disorders
CPT/HCPCS: 36415; 80053-TC; 82378; 85025-TC; 86300

== ENCOUNTER 2021-10-18 08:35 | Outpatient (CLI) | payer BC | END 2021-10-18 23:59 | disposition home or self-care (01) | LOC: WOU 08:35 | PROVIDERS: ATTEND Surgery | DX: C50.412 Malignant neoplasm of upper-outer quadrant of left female breast (principal); E11.9 Type 2 diabetes mellitus without complications; I10 Essential (primary) hypertension; Z79.82 Long term (current) use of aspirin | CPT/HCPCS: G0463 ==

== ENCOUNTER 2021-10-31 11:58 | Outpatient (CLI) | payer BC ==
[2021-10-31 12:38] LABS: BASOPHILS % (AUTO) 0.3 % (0.0-2.0); EOSINOPHILS % (AUTO) 0.9 % (0.0-6.0); HEMATOCRIT 37 % (33-45); HEMOGLOBIN 12.1 g/dL (11.5-14.8); LYMPHOCYTES # (AUTO) 1.6 K/uL (0.8-4.8); LYMPHOCYTES % (AUTO) 19.2 % (20.0-44.0); MEAN CORPUSCULAR HGB CONC 33 g/dl (31.0-36.0); MEAN CORPUSCULAR VOLUME 86 fL (82-100); MONOCYTES # (AUTO) 0.4 K/uL (0.1-1.30); MONOCYTES % (AUTO) 5.2 % (2.0-12.0); NEUTROPHILS # (AUTO) 6.1 K/uL (1.8-8.9); NEUTROPHILS % (AUTO) 74.4 % (43.0-81.0); PLATELET COUNT (AUTO) 269 K/uL (150-450); WHITE BLOOD COUNT (AUTO) 8.2 K/uL (4.3-11.0)
[2021-10-31 13:00] LABS: CALCIUM, SERUM 9.1 mg/dL (8.5-10.1); CREATININE 1.2 mg/dL (0.6-1.3); POTASSIUM 3.9 mmol/L (3.5-5.1)
== END 2021-10-31 23:59 | disposition home or self-care (01) ==
LOC: LAB 11:58
PROVIDERS: ATTEND Legal Medicine
DX: Z01.818 Encounter for other preprocedural examination (principal); R06.02 Shortness of breath
CPT/HCPCS: 36415; 71046; 80048-TC; 85025-TC; 85730-TC

== ENCOUNTER 2021-11-01 08:10 | Outpatient (CLI) | payer BC ==
[2021-11-10] MEDS ORDERED: ONDA4TAB11 PO (10:52)
== END 2021-11-01 23:59 | disposition home or self-care (01) ==
LOC: WOU 08:10
PROVIDERS: ATTEND Surgery
DX: C50.412 Malignant neoplasm of upper-outer quadrant of left female breast (principal); Z17.1 Estrogen receptor negative status [ER-]; I10 Essential (primary) hypertension; E11.9 Type 2 diabetes mellitus without complications
CPT/HCPCS: G0463

== ENCOUNTER 2021-11-03 09:10 | Outpatient (CLI) | payer BC | END 2021-11-03 23:59 | disposition home or self-care (01) | LOC: LAB 09:10 | PROVIDERS: ATTEND Surgery | DX: Z01.812 Encounter for preprocedural laboratory examination (principal); Z20.822 Contact with and (suspected) exposure to COVID-19 | CPT/HCPCS: C9803; U0003 ==

== ENCOUNTER 2021-11-07 08:41 | Outpatient (CLI) | payer BC ==
[2021-11-08] MEDS ORDERED: CYAN-51 PO (14:03)
[2021-11-08] MEDS ORDERED: TAMO20TA4 PO (14:03)
[2021-11-08] MEDS ORDERED: MULT-447 PO (14:03)
[2021-11-08] MEDS ORDERED: ASPI-1420 PO (14:03)
[2021-11-08] MEDS ORDERED: FERR325T23 PO (14:03)
== END 2021-11-07 23:59 | disposition home or self-care (01) ==
LOC: NM 08:41
PROVIDERS: ATTEND Surgery
DX: C50.919 Malignant neoplasm of unspecified site of unspecified female breast (principal)
CPT/HCPCS: 78195; A9541

== ENCOUNTER 2021-11-08 05:36 | Inpatient (IN) | payer BC ==
[~2021-11-08] VITALS: Ht 157.5 cm; Wt 76.2 kg
[~2021-11-08 05:36] MED LIST changes: +ANESTHESIA TRAY IN PYXIS 1 EA TRAY MC ONE
--- NOTE | 2021-11-08 06:45 | NUR ---
DAY SURGERY ADMISSION NOTE PATIENT ARRIVED, ALERT/ORIENTED X 4, PT ABLE TO MAKE NEEDS KNOWN. PT DENIES PAIN AT THIS TIME. PT STABLE ON RA, NO S/S OF DISTRESS OR SOB NOTED, BREATHING EVEN AND UNLABORED. PT IS AMBULATORY. ALL CONSENT FORMS SIGNED, BELONGINGS DOCUMENTED AND PLACED IN CHART, MRSA SWAB DONE, TEST DONE, TYPE AND SCREEN DONE, BLOOD SUGAR CHECK DONE. UNABLE TO PLACE IV, ENDORSED TO SHELTER SUPERVISOR. PATIENT WEARS GLASSES AND UPPER DENTURES. PATIENT IS VACCINATED FOR FLU AND COVID. PATIENT HAS BEEN NPO SINCE 830 PM LAST NIGHT. PATIENT REPORTS ALLERGY TO LORATADINE (CLARITIN). PT REPORTS MEDICAL HISTORY OF HTN, HLD, BREAST CA, CHEMO, SUPRAVENTRICULAR TACHYCARDIA, ALLERGIC RHINITIS, PALPATIONS, AND INSOMNIA. SAFETY MEASURES IN PLACE: CALL LIGHT WITHIN REACH, SIDE RAILS UP X 2, BED LOCKED IN LOW POSITION. WILL CONTINUE TO MONITOR PATIENT
--- NOTE | 2021-11-08 07:08 | NUR ---
RN NOTE PATIENT TAKEN TO SURGERY IN STABLE CONDITION. WILL ENDORSE TO DAY SHIFT NURSE
[2021-11-08] MEDS ORDERED: MIDAZOLAM HCL 2 MG/2ML VIAL ONE (07:18)
[2021-11-08] MEDS ORDERED: FENTANYL PF 250MCG/5ML AMPUL ONE (07:18)
[2021-11-08] MEDS ORDERED: ROCURONIUM BROMIDE 50 MG/5 ML ONE (07:18)
[2021-11-08] MEDS ORDERED: SEVOFLURANE 250 ML BOTTLE IH ONE (07:26)
--- NOTE | 2021-11-08 07:35 | NUR ---
RN OPENING NOTES RECEIVED REPORT FROM PARKING METER INSTALLER NURSE. PATIENT IS NOT IN ROOM WAS TAKE FOR SURGERY.
[2021-11-08] MEDS ORDERED: METHYLENE BLUE 10 ML VIAL ONE (07:46)
[2021-11-08] MEDS ORDERED: HYDROMORPHONE INJ 2 MG/ML DISP.SYRIN ONE (07:55)
[2021-11-08] MEDS ORDERED: Z GUARD REMEDY 4 OZ OINT TP PRN (12:30)
[2021-11-08] MEDS ORDERED: ACETAMINOPHEN 325 MG TABLET PO PRN (12:30)
[2021-11-08] MEDS ORDERED: IV LR 1000 ML 1,000 ML IV PRN (12:30)
[2021-11-08] MEDS ORDERED: ONDANSETRON HCL/PF 4 MG/2 ML VIAL IVP PRN (12:30)
[2021-11-08] MEDS ORDERED: MAGNESIUM HYDROXIDE 30 ML UDC PO PRN (12:30)
[2021-11-08] MEDS ORDERED: ONDANSETRON 4 MG TAB.RAPDIS PO PRN (12:30)
--- NOTE | 2021-11-08 12:30 | NUR ---
RN NOTE PATIENT IS BACK TO ROOM FROM SURGERY, PATIENT CAME TO UNIT VIA GURNEY, NO DISTRESS, V/S STABLE. PATIENT IS IN BED RESTING, AWAKE, A/O X4. NO S/S OF PAIN AT THE MOMENT. ON 2L OXYGEN VIA NC, NO DISTRESS OR SHORTNESS OF BREATH NOTED. IV ACCESS RIGHT HAND, INTACT, PATENT AND FLUSHING WELL. FALL AND SAFETY MEASURES IN PLACE, BED ALARM ON, BED IN LOW AND LOCK POSITION, CALLL LIGHT AND TABLE WITHIN EASY REACH, SIDE RAIL UP X2. WILL CONTINUE TO MONITOR.
[2021-11-08] MEDS ORDERED: ASPI-1420 PO (14:03)
[2021-11-08] MEDS ORDERED: TAMO20TA4 PO (14:03)
[2021-11-08] MEDS ORDERED: FERR325T23 PO (14:03)
[2021-11-08] MEDS ORDERED: CYAN-51 PO (14:03)
[2021-11-08] MEDS ORDERED: MULT-447 PO (14:03)
[2021-11-08] MEDS: oxyCODONE/APAP (5/325 MG) 1 UDTAB TABLET PO PRN (14:28)
[2021-11-08 15:01] LABS: BASOPHILS % (AUTO) 0.1 % (0.0-2.0); HEMATOCRIT 36 % (33-45); HEMOGLOBIN 11.6 g/dL (11.5-14.8); LYMPHOCYTES # (AUTO) 0.7 K/uL (0.8-4.8); LYMPHOCYTES % (AUTO) 5.7 % (20.0-44.0); MEAN CORPUSCULAR HGB CONC 32 g/dl (31.0-36.0); MEAN CORPUSCULAR VOLUME 86 fL (82-100); MONOCYTES # (AUTO) 0.1 K/uL (0.1-1.30); MONOCYTES % (AUTO) 0.8 % (2.0-12.0); NEUTROPHILS # (AUTO) 11.9 K/uL (1.8-8.9); NEUTROPHILS % (AUTO) 93.4 % (43.0-81.0); PLATELET COUNT (AUTO) 205 K/uL (150-450); RED BLOOD CELL COUNT(AUTO) 4.18 MIL/uL (4.0-5.2); WHITE BLOOD COUNT (AUTO) 12.7 K/uL (4.3-11.0)
[2021-11-08 15:13] LABS: CALCIUM, SERUM 8.5 mg/dL (8.5-10.1); CREATININE 1.4 mg/dL (0.6-1.3); POTASSIUM 4.1 mmol/L (3.5-5.1)
[2021-11-08] MEDS ORDERED: IV LR 1000 ML 1,000 ML IV ONE (17:00)
[2021-11-08 17:46] VITALS: BP 162/81
--- NOTE | 2021-11-08 19:15 | NUR ---
MS RN OPENING NOTES: RECEIVED PATIENT IN BED, AWAKE, A/O X4. NO S/S OF DISTRESS NOTED. PAIN LEVEL 8/10 ON BOTH BREASTS. CALL LIGHT WITHIN REACH. BED IN LOWEST AND LOCKED POSITION. WITH DVT PUMPS ON. WITH 2 JASE INTACT DRAINING SMALL AMOUNT OF SEROSANGUINOUS FLUID. LEFT AND RIGHT.
--- NOTE | 2021-11-08 19:36 | NUR ---
RN CLOSING NOTE PATIENT IS IN BED RESTING, AWAKE, A/O X4. NO S/S OF PAIN AT THE MOMENT. ON ROOM AIR NO DISTRESS OR SHORTNESS OF BREATH NOTED. IV ACCESS RIGHT HAND, INTACT, PATENT AND FLUSHING WELL. PATIENT HAVE TWO JACKCON CUMMINGS DRAINAGE, LEFT JASE OUTPUT: 25, RIGHT JASE OUTPUT: 55. FALL AND SAFETY MEASURES IN PLACE, BED ALARM ON, BED IN LOW AND LOCK POSITION, CALL LIGHT AND TABLE WITHIN EASY REACH, SIDE RAIL UP X2. WILL ENDORSE TO ELECTRIC APPLIANCE INSTALLER.
[2021-11-08] MEDS: MORPHINE SULFATE INJ 2 MG/ML DISP.SYRIN IV PRN (19:47)
[2021-11-08 20:00] VITALS: BP 149/98
[2021-11-09] MEDS: MORPHINE SULFATE INJ 2 MG/ML DISP.SYRIN IV PRN ×2 (02:55→08:18)
[2021-11-09 06:22] LABS: BASOPHILS % (AUTO) 0.1 % (0.0-2.0); HEMATOCRIT 30 % (33-45); LYMPHOCYTES # (AUTO) 1.5 K/uL (0.8-4.8); LYMPHOCYTES % (AUTO) 12.8 % (20.0-44.0); MEAN CORPUSCULAR HGB CONC 33 g/dl (31.0-36.0); MEAN CORPUSCULAR VOLUME 84 fL (82-100); MONOCYTES # (AUTO) 0.7 K/uL (0.1-1.30); MONOCYTES % (AUTO) 5.9 % (2.0-12.0); NEUTROPHILS # (AUTO) 9.3 K/uL (1.8-8.9); NEUTROPHILS % (AUTO) 81.2 % (43.0-81.0); PLATELET COUNT (AUTO) 200 K/uL (150-450); RED BLOOD CELL COUNT(AUTO) 3.57 MIL/uL (4.0-5.2); WHITE BLOOD COUNT (AUTO) 11.5 K/uL (4.3-11.0)
--- NOTE | 2021-11-09 06:27 | NUR ---
RIGHT JASE OUTPUT= 30ML. LEFT JASE OUTPUT=5ML
[2021-11-09 07:29] LABS: CALCIUM, SERUM 8.5 mg/dL (8.5-10.1); MAGNESIUM 2.2 mg/dL (1.8-2.4)
--- NOTE | 2021-11-09 07:30 | NUR ---
RN MS NOTES PT IN BED, AWAKE, ALERT AND ORIENTED, NO COMPLAINT AT THIS TIME, RESPIRATIONS NORMAL, CALL LIGHT WITHIN REACH, NEEDS ATTENDED.
[2021-11-09] MEDS: PANTOPRAZOLE 40 MG TABLET.DR PO SCH (08:17)
--- NOTE | 2021-11-09 08:28 | NUR ---
RN MS NOTES PT SEEN AND EXAMINED BY DR. NAIR, PLAN OF CARE DISCUSSED WITH PT, DUE MEDS GIVEN.
--- NOTE | 2021-11-09 08:34 | NUR ---
RN MS NOTES PT SEEN AND EXAMINED BY DR. LOAIZA, PLAN OF CARE DISCUSSED WITH PT, VERBALIZED UNDERSTANDING.
[2021-11-09] MEDS: DILTIAZEM HCL CD 120 MG PO SCH (08:59)
[2021-11-09] MEDS ORDERED: LOSARTAN POTASSIUM 50 MG TABLET PO SCH (09:00)
[2021-11-09] MEDS: LOSARTAN POTASSIUM 50 MG TABLET PO SCH (13:13)
[2021-11-09 15:57] VITALS: BP 156/80
[2021-11-09] MEDS: oxyCODONE/APAP (5/325 MG) 1 UDTAB TABLET PO PRN ×2 (16:46→21:43)
--- NOTE | 2021-11-09 19:00 | NUR ---
RN MS NOTES PT IN BED, AWAKE, ALERT AND ORIENTED, PAIN MEDS GIVEN ORDERED, NOT IN DISTRESS, TOLERATES CURRENT DIET, CALL LIGHT WITHIN REACH, ALL NEEDS ATTENDED.
--- NOTE | 2021-11-09 19:20 | NUR ---
MS RN OPENING NOTES: RECEIVED PATIENT IN BED, AWAKE, A/O X4. NO S/S OF DISTRESS NOTED. NO COMPLAIN OF PAIN. CALL LIGHT WITHIN REACH. BED IN LOWEST AND LOCKED POSITION. WITH 2 JASE RIGHT AND LEFT SIDES, INTACT DRAINING SEROSANGUINOUS OUTPUT. WITH FAMILY MEMBER AT THE BEDSIDE. WITH BEDSIDE COMMODE NEAR THE BED PATIENT PREFERS TO USE THE COMMODE.
[2021-11-09 20:00] VITALS: BP 165/60
--- NOTE | 2021-11-09 21:49 | NUR ---
RIGHT JASE= 50ML. LEFT JASE= 30ML.
[2021-11-10 06:13] LABS: BASOPHILS % (AUTO) 0.4 % (0.0-2.0); EOSINOPHILS % (AUTO) 0.3 % (0.0-6.0); HEMATOCRIT 28 % (33-45); HEMOGLOBIN 9.2 g/dL (11.5-14.8); LYMPHOCYTES % (AUTO) 28.5 % (20.0-44.0); MEAN CORPUSCULAR HGB CONC 33 g/dl (31.0-36.0); MEAN CORPUSCULAR VOLUME 85 fL (82-100); MONOCYTES # (AUTO) 0.5 K/uL (0.1-1.30); MONOCYTES % (AUTO) 7.2 % (2.0-12.0); NEUTROPHILS # (AUTO) 4.4 K/uL (1.8-8.9); NEUTROPHILS % (AUTO) 63.6 % (43.0-81.0); PLATELET COUNT (AUTO) 174 K/uL (150-450); RED BLOOD CELL COUNT(AUTO) 3.24 MIL/uL (4.0-5.2); WHITE BLOOD COUNT (AUTO) 6.9 K/uL (4.3-11.0)
[2021-11-10] MEDS: oxyCODONE/APAP (5/325 MG) 1 UDTAB TABLET PO PRN (07:05)
[2021-11-10 07:12] LABS: CALCIUM, SERUM 8.8 mg/dL (8.5-10.1); CREATININE 1.1 mg/dL (0.6-1.3); POTASSIUM 3.8 mmol/L (3.5-5.1)
--- NOTE | 2021-11-10 07:22 | NUR ---
MS RN OPENING NOTES RECEIVED PATIENT IN BED, AWAKE, A/O X4. NO S/S OF DISTRESS NOTED. NO COMPLAIN OF PAIN AT THIS TIME. IV ACCESS ON R WRIST G#20, PATENT AND FLUSHES WELL,CALL LIGHT WITHIN REACH. SAFETY PRECAUTIONS IN PLACE: BED IN LOWEST AND LOCKED POSITION, SIDE RAILS UP X2, CALL LIGHT WITHIN EASY REACH. WITH 2 JASE RIGHT AND LEFT SIDES, INTACT DRAINING SEROSANGUINOUS OUTPUT. WILL CONTINUE TO MONITOR ACCORDINGLY.
[2021-11-10] MEDS: PANTOPRAZOLE 40 MG TABLET.DR PO SCH (07:35)
[2021-11-10 08:00] VITALS: BP 142/84
[2021-11-10] MEDS: DILTIAZEM HCL CD 120 MG PO SCH (08:10)
[2021-11-10 08:11] VITALS: BP 142/84
[2021-11-10] MEDS: LOSARTAN POTASSIUM 50 MG TABLET PO SCH (08:11)
[2021-11-10] MEDS ORDERED: ONDA4TAB11 PO (10:52)
--- NOTE | 2021-11-10 11:30 | NUR ---
INFORMATION SECURITY DIRECTOR NOTES DISCHARGE PATIENT IN STABLE CONDITION. VS WITHIN NORMAL LIMITS. DISCHARGE INSTRUCTIONS AND FOLLOW UP DISCUSSED WITH PATIENT. IV ACCESS REMOVED, COVERED WITH GAUZE, NO BLEEDING NOTED. ARMBAND REMOVED. BELONGINGS ACCOUNTED AND SIGNED FOR. WHEELED TO LOBBY SAFELY. LEFT UNIT IN STABLE CONDITION. MD AND CHARGE NURSE AWARE OF DISCHARGE.
== END 2021-11-10 11:30 | disposition home or self-care (01) | DRG 581 ==
LOC: DS 05:36 → MED 05:38
PROVIDERS: ADMIT Nurse Practitioner Family; ATTEND Nurse Practitioner Family
PROC: 0HTV0ZZ Resection of Bilateral Breast, Open Approach (ICD-10-PCS; principal; 2021-11-08)
PROC: 07B60ZX Excision of Left Axillary Lymphatic, Open Approach, Diagnostic (ICD-10-PCS; 2021-11-08)
DX: C50.912 Malignant neoplasm of unspecified site of left female breast (principal); I12.9 Hypertensive chronic kidney disease with stage 1 through stage 4 chronic kidney disease, or unspecified chronic kidney disease; N18.9 Chronic kidney disease, unspecified; E11.22 Type 2 diabetes mellitus with diabetic chronic kidney disease; Z92.21 Personal history of antineoplastic chemotherapy; Z83.3 Family history of diabetes mellitus; F43.9 Reaction to severe stress, unspecified; Z82.49 Family history of ischemic heart disease and other diseases of the circulatory system; Z98.891 History of uterine scar from previous surgery; Z79.899 Other long term (current) drug therapy; Z86.79 Personal history of other diseases of the circulatory system
CPT/HCPCS: 36415; 80048-TC; 80061-TC; 83735-TC; 84703-TC; 85025-TC; 86850-TC; 87081-TC; 88307-TC; 88309-TC; 88312-TC; 88331-TC; 88341; 88342; 88360; G0378; J0330; J0690; J1100; J1170; J2250; J2270; J2370; J2405; J2704; J3010; J3490; J7030; J7120; Q9968

== ENCOUNTER 2021-11-15 08:20 | Outpatient (CLI) | payer BC ==
[~2021-11-15 08:20] MED LIST changes: -ANESTHESIA TRAY IN PYXIS 1 EA TRAY MC ONE; +ASPI-1420 PO; +CYAN-51 PO; -DILT30TA14 PO; +FERR325T23 PO; +MULT-447 PO; +ONDA4TAB11 PO; -ONDA8TAB65 PO; -PROC10TA29 PO; +TAMO20TA4 PO; -[UNRECOGNIZED DRUG - REMARK] IV
== END 2021-11-15 23:59 | disposition home or self-care (01) ==
LOC: WOU 08:20
PROVIDERS: ATTEND Surgery
DX: Z48.3 Aftercare following surgery for neoplasm (principal); C50.412 Malignant neoplasm of upper-outer quadrant of left female breast; Z17.1 Estrogen receptor negative status [ER-]; Z90.13 Acquired absence of bilateral breasts and nipples; E11.9 Type 2 diabetes mellitus without complications; I10 Essential (primary) hypertension; Z79.82 Long term (current) use of aspirin
CPT/HCPCS: G0463

== ENCOUNTER 2021-11-21 10:56 | Outpatient (CLI) | payer BC ==
[2021-11-21 11:37] LABS: BASOPHILS % (AUTO) 0.4 % (0.0-2.0); HEMATOCRIT 36 % (33-45); HEMOGLOBIN 11.5 g/dL (11.5-14.8); LYMPHOCYTES # (AUTO) 1.3 K/uL (0.8-4.8); LYMPHOCYTES % (AUTO) 24.8 % (20.0-44.0); MEAN CORPUSCULAR HGB CONC 32 g/dl (31.0-36.0); MEAN CORPUSCULAR VOLUME 85 fL (82-100); MONOCYTES # (AUTO) 0.2 K/uL (0.1-1.30); MONOCYTES % (AUTO) 4.6 % (2.0-12.0); NEUTROPHILS # (AUTO) 3.6 K/uL (1.8-8.9); NEUTROPHILS % (AUTO) 69.2 % (43.0-81.0); PLATELET COUNT (AUTO) 301 K/uL (150-450); RED BLOOD CELL COUNT(AUTO) 4.17 MIL/uL (4.0-5.2); WHITE BLOOD COUNT (AUTO) 5.2 K/uL (4.3-11.0)
[2021-11-21 12:57] LABS: ALBUMIN 3.5 g/dL (3.4-5.0); BILIRUBIN,TOTAL 0.2 mg/dL (0.2-1.0); CALCIUM, SERUM 9.2 mg/dL (8.5-10.1); CREATININE 1.1 mg/dL (0.6-1.3); POTASSIUM 3.9 mmol/L (3.5-5.1); TOTAL PROTEIN, SERUM 7.2 g/dL (6.4-8.2)
[2021-11-22 04:10] LABS: CANCER AG, 15-3 13.9 U/mL (0.0-25.0)
== END 2021-11-21 23:59 | disposition home or self-care (01) ==
LOC: LAB 10:56
PROVIDERS: ATTEND Internal Medicine Hematology & Oncology
DX: C50.011 Malignant neoplasm of nipple and areola, right female breast (principal); D51.0 Vitamin B12 deficiency anemia due to intrinsic factor deficiency; D53.9 Nutritional anemia, unspecified; Z13.228 Encounter for screening for other metabolic disorders
CPT/HCPCS: 36415; 80053-TC; 82378; 82607-TC; 82728-TC; 83540-TC; 85025-TC; 86300

== ENCOUNTER 2021-11-29 08:20 | Outpatient (CLI) | payer BC | END 2021-11-29 23:59 | disposition home or self-care (01) | LOC: WOU 08:20 | PROVIDERS: ATTEND Surgery | DX: Z48.3 Aftercare following surgery for neoplasm (principal); C50.412 Malignant neoplasm of upper-outer quadrant of left female breast; Z90.13 Acquired absence of bilateral breasts and nipples; Z79.82 Long term (current) use of aspirin; E11.9 Type 2 diabetes mellitus without complications; I10 Essential (primary) hypertension; Z17.0 Estrogen receptor positive status [ER+] | CPT/HCPCS: G0463 ==

== ENCOUNTER 2022-01-09 09:44 | Outpatient (CLI) | payer BC ==
[2022-01-09 11:50] LABS: BASOPHILS % (AUTO) 0.4 % (0.0-2.0); EOSINOPHILS % (AUTO) 1.5 % (0.0-6.0); HEMATOCRIT 40 % (33-45); HEMOGLOBIN 13.4 g/dL (11.5-14.8); LYMPHOCYTES # (AUTO) 1.5 K/uL (0.8-4.8); LYMPHOCYTES % (AUTO) 30.2 % (20.0-44.0); MEAN CORPUSCULAR HGB CONC 34 g/dl (31.0-36.0); MEAN CORPUSCULAR VOLUME 82 fL (82-100); MONOCYTES # (AUTO) 0.4 K/uL (0.1-1.30); MONOCYTES % (AUTO) 8.2 % (2.0-12.0); NEUTROPHILS % (AUTO) 59.7 % (43.0-81.0); PLATELET COUNT (AUTO) 265 K/uL (150-450); RED BLOOD CELL COUNT(AUTO) 4.86 MIL/uL (4.0-5.2)
[2022-01-09 12:24] LABS: ALBUMIN 3.3 g/dL (3.4-5.0); BILIRUBIN,TOTAL 0.1 mg/dL (0.2-1.0); CALCIUM, SERUM 9.6 mg/dL (8.5-10.1); CREATININE 1.2 mg/dL (0.6-1.3); POTASSIUM 3.9 mmol/L (3.5-5.1); TOTAL PROTEIN, SERUM 7.5 g/dL (6.4-8.2)
[2022-01-10 09:07] LABS: CANCER AG, 15-3 11.5 U/mL (0.0-25.0)
== END 2022-01-09 23:59 | disposition home or self-care (01) ==
LOC: LAB 09:44
PROVIDERS: ATTEND Internal Medicine Hematology & Oncology
DX: C50.919 Malignant neoplasm of unspecified site of unspecified female breast (principal)
CPT/HCPCS: 36415; 80053-TC; 82378; 85025-TC; 86300

== ENCOUNTER 2022-02-09 10:48 | Outpatient (CLI) | payer BC ==
[2022-02-09 11:47] LABS: BASOPHILS % (AUTO) 0.4 % (0.0-2.0); EOSINOPHILS % (AUTO) 1.9 % (0.0-6.0); HEMATOCRIT 38 % (33-45); HEMOGLOBIN 12.7 g/dL (11.5-14.8); LYMPHOCYTES # (AUTO) 0.8 K/uL (0.8-4.8); LYMPHOCYTES % (AUTO) 16.5 % (20.0-44.0); MEAN CORPUSCULAR HGB CONC 33 g/dl (31.0-36.0); MEAN CORPUSCULAR VOLUME 82 fL (82-100); MONOCYTES # (AUTO) 0.4 K/uL (0.1-1.30); MONOCYTES % (AUTO) 7.5 % (2.0-12.0); NEUTROPHILS # (AUTO) 3.7 K/uL (1.8-8.9); NEUTROPHILS % (AUTO) 73.7 % (43.0-81.0); PLATELET COUNT (AUTO) 231 K/uL (150-450); RED BLOOD CELL COUNT(AUTO) 4.68 MIL/uL (4.0-5.2)
[2022-02-09 12:18] LABS: ALBUMIN 3.2 g/dL (3.4-5.0); BILIRUBIN,TOTAL 0.2 mg/dL (0.2-1.0); CREATININE 1.2 mg/dL (0.6-1.3); POTASSIUM 3.6 mmol/L (3.5-5.1); TOTAL PROTEIN, SERUM 7.1 g/dL (6.4-8.2)
[2022-02-10 07:07] LABS: CANCER AG, 15-3 10.7 U/mL (0.0-25.0)
== END 2022-02-09 23:59 | disposition home or self-care (01) ==
LOC: LAB 10:48
PROVIDERS: ATTEND Internal Medicine Hematology & Oncology
DX: C50.011 Malignant neoplasm of nipple and areola, right female breast (principal); D64.9 Anemia, unspecified; Z13.228 Encounter for screening for other metabolic disorders; R97.0 Elevated carcinoembryonic antigen [CEA]
CPT/HCPCS: 36415; 80053-TC; 82378; 85025-TC; 86300

== ENCOUNTER 2022-03-07 12:53 | Outpatient (CLI) | payer BC ==
[2022-03-07 13:43] LABS: BASOPHILS % (AUTO) 0.4 % (0.0-2.0); EOSINOPHILS % (AUTO) 1.4 % (0.0-6.0); HEMATOCRIT 39 % (33-45); LYMPHOCYTES # (AUTO) 1.5 K/uL (0.8-4.8); LYMPHOCYTES % (AUTO) 25.4 % (20.0-44.0); MEAN CORPUSCULAR HGB CONC 33 g/dl (31.0-36.0); MEAN CORPUSCULAR VOLUME 82 fL (82-100); MONOCYTES # (AUTO) 0.6 K/uL (0.1-1.30); MONOCYTES % (AUTO) 10.2 % (2.0-12.0); NEUTROPHILS # (AUTO) 3.8 K/uL (1.8-8.9); NEUTROPHILS % (AUTO) 62.6 % (43.0-81.0); PLATELET COUNT (AUTO) 255 K/uL (150-450); RED BLOOD CELL COUNT(AUTO) 4.72 MIL/uL (4.0-5.2)
[2022-03-07 13:44] LABS: ALBUMIN 3.6 g/dL (3.4-5.0); BILIRUBIN,TOTAL 0.2 mg/dL (0.2-1.0); CALCIUM, SERUM 9.1 mg/dL (8.5-10.1); CREATININE 1.1 mg/dL (0.6-1.3); POTASSIUM 3.9 mmol/L (3.5-5.1); TOTAL PROTEIN, SERUM 7.6 g/dL (6.4-8.2)
== END 2022-03-07 23:59 | disposition home or self-care (01) ==
LOC: LAB 12:53
PROVIDERS: ATTEND Internal Medicine Hematology & Oncology
DX: D64.9 Anemia, unspecified (principal); Z13.228 Encounter for screening for other metabolic disorders
CPT/HCPCS: 36415; 80053-TC; 85025-TC

== ENCOUNTER 2022-05-09 10:36 | Outpatient (CLI) | payer BC ==
[2022-05-09 11:22] LABS: BASOPHILS % (AUTO) 0.4 % (0.0-2.0); EOSINOPHILS % (AUTO) 1.1 % (0.0-6.0); HEMATOCRIT 39 % (33-45); LYMPHOCYTES # (AUTO) 1.7 K/uL (0.8-4.8); LYMPHOCYTES % (AUTO) 30.3 % (20.0-44.0); MEAN CORPUSCULAR HGB CONC 33 g/dl (31.0-36.0); MEAN CORPUSCULAR VOLUME 84 fL (82-100); MONOCYTES # (AUTO) 0.4 K/uL (0.1-1.30); MONOCYTES % (AUTO) 7.5 % (2.0-12.0); NEUTROPHILS # (AUTO) 3.4 K/uL (1.8-8.9); NEUTROPHILS % (AUTO) 60.7 % (43.0-81.0); PLATELET COUNT (AUTO) 234 K/uL (150-450); RED BLOOD CELL COUNT(AUTO) 4.62 MIL/uL (4.0-5.2); WHITE BLOOD COUNT (AUTO) 5.6 K/uL (4.3-11.0)
[2022-05-09 12:21] LABS: CALCIUM, SERUM 9.3 mg/dL (8.5-10.1); CREATININE 1.1 mg/dL (0.6-1.3); POTASSIUM 3.8 mmol/L (3.5-5.1)
[2022-05-09 13:31] LABS: ALBUMIN 3.7 g/dL (3.4-5.0); BILIRUBIN,TOTAL 0.2 mg/dL (0.2-1.0); TOTAL PROTEIN, SERUM 7.8 g/dL (6.4-8.2)
[2022-05-10 07:07] LABS: CANCER AG, 15-3 9.9 U/mL (0.0-25.0)
== END 2022-05-09 23:59 | disposition home or self-care (01) ==
LOC: LAB 10:36
PROVIDERS: ATTEND Internal Medicine Hematology & Oncology
DX: C50.011 Malignant neoplasm of nipple and areola, right female breast (principal); D64.9 Anemia, unspecified; R97.0 Elevated carcinoembryonic antigen [CEA]; Z13.228 Encounter for screening for other metabolic disorders
CPT/HCPCS: 36415; 80053-TC; 82378; 85025-TC; 86300

== ENCOUNTER → 2022-05-23 | Outpatient (CLI) | payer BC | END | disposition home or self-care (01) | LOC: WOU 08:29 | PROVIDERS: ATTEND Surgery | DX: C50.412 Malignant neoplasm of upper-outer quadrant of left female breast (principal); Z90.13 Acquired absence of bilateral breasts and nipples; Z79.82 Long term (current) use of aspirin | CPT/HCPCS: G0463 ==

== ENCOUNTER 2022-06-06 08:11 | Outpatient (CLI) | payer BC ==
[2022-06-06 09:35] LABS: BASOPHILS % (AUTO) 0.5 % (0.0-2.0); EOSINOPHILS % (AUTO) 1.1 % (0.0-6.0); HEMATOCRIT 41 % (33-45); HEMOGLOBIN 13.5 g/dL (11.5-14.8); LYMPHOCYTES % (AUTO) 36.7 % (20.0-44.0); MEAN CORPUSCULAR HGB CONC 33 g/dl (31.0-36.0); MEAN CORPUSCULAR VOLUME 85 fL (82-100); MONOCYTES # (AUTO) 0.4 K/uL (0.1-1.30); MONOCYTES % (AUTO) 7.2 % (2.0-12.0); NEUTROPHILS % (AUTO) 54.5 % (43.0-81.0); PLATELET COUNT (AUTO) 267 K/uL (150-450); RED BLOOD CELL COUNT(AUTO) 4.81 MIL/uL (4.0-5.2); WHITE BLOOD COUNT (AUTO) 5.5 K/uL (4.3-11.0)
[2022-06-06 10:34] LABS: ALBUMIN 3.6 g/dL (3.4-5.0); BILIRUBIN,TOTAL 0.3 mg/dL (0.2-1.0); CREATININE 1.3 mg/dL (0.6-1.3); TOTAL PROTEIN, SERUM 7.9 g/dL (6.4-8.2)
[2022-06-07 07:07] LABS: CANCER AG, 15-3 11.6 U/mL (0.0-25.0)
== END 2022-06-06 23:59 | disposition home or self-care (01) ==
LOC: LAB 08:11
PROVIDERS: ATTEND Internal Medicine Hematology & Oncology
DX: C50.011 Malignant neoplasm of nipple and areola, right female breast (principal); Z13.228 Encounter for screening for other metabolic disorders; D64.9 Anemia, unspecified; R97.0 Elevated carcinoembryonic antigen [CEA]
CPT/HCPCS: 36415; 80053-TC; 82378; 85025-TC; 86300

== ENCOUNTER 2022-06-23 08:42 | Outpatient (CLI) | payer BC ==
[2022-06-23] MEDS ORDERED: IOHEXOL-300 100 ML VIAL IV ONE (09:04)
== END 2022-06-23 23:59 | disposition home or self-care (01) ==
LOC: CT 08:42
PROVIDERS: ATTEND Internal Medicine Hematology & Oncology
DX: R91.8 Other nonspecific abnormal finding of lung field (principal); N28.1 Cyst of kidney, acquired; Z95.9 Presence of cardiac and vascular implant and graft, unspecified; C50.919 Malignant neoplasm of unspecified site of unspecified female breast; Z98.890 Other specified postprocedural states
CPT/HCPCS: 71260; 74177; Q9967

== ENCOUNTER 2022-07-07 08:41 | Outpatient (CLI) | payer BC ==
[2022-07-07 09:32] LABS: BASOPHILS % (AUTO) 0.5 % (0.0-2.0); EOSINOPHILS % (AUTO) 0.9 % (0.0-6.0); HEMATOCRIT 38 % (33-45); HEMOGLOBIN 12.6 g/dL (11.5-14.8); LYMPHOCYTES # (AUTO) 1.9 K/uL (0.8-4.8); LYMPHOCYTES % (AUTO) 37.1 % (20.0-44.0); MEAN CORPUSCULAR HGB CONC 33 g/dl (31.0-36.0); MEAN CORPUSCULAR VOLUME 83 fL (82-100); MONOCYTES # (AUTO) 0.4 K/uL (0.1-1.30); MONOCYTES % (AUTO) 7.2 % (2.0-12.0); NEUTROPHILS # (AUTO) 2.8 K/uL (1.8-8.9); NEUTROPHILS % (AUTO) 54.3 % (43.0-81.0); PLATELET COUNT (AUTO) 228 K/uL (150-450); RED BLOOD CELL COUNT(AUTO) 4.59 MIL/uL (4.0-5.2); WHITE BLOOD COUNT (AUTO) 5.2 K/uL (4.3-11.0)
[2022-07-07 09:50] LABS: ALBUMIN 3.7 g/dL (3.4-5.0); BILIRUBIN,TOTAL 0.4 mg/dL (0.2-1.0); CALCIUM, SERUM 9.4 mg/dL (8.5-10.1); CREATININE 1.1 mg/dL (0.6-1.3); POTASSIUM 4.1 mmol/L (3.5-5.1); TOTAL PROTEIN, SERUM 7.7 g/dL (6.4-8.2)
== END 2022-07-07 23:59 | disposition home or self-care (01) ==
LOC: LAB 08:41
PROVIDERS: ATTEND Internal Medicine Hematology & Oncology
DX: Z13.228 Encounter for screening for other metabolic disorders (principal); C50.011 Malignant neoplasm of nipple and areola, right female breast; D64.9 Anemia, unspecified; R97.0 Elevated carcinoembryonic antigen [CEA]
CPT/HCPCS: 36415; 80053-TC; 82306; 85025-TC

== ENCOUNTER 2022-08-16 11:14 | Outpatient (CLI) | payer BC ==
[2022-08-16 11:57] LABS: BASOPHILS % (AUTO) 0.3 % (0.0-2.0); EOSINOPHILS % (AUTO) 0.9 % (0.0-6.0); HEMATOCRIT 40 % (33-45); HEMOGLOBIN 12.8 g/dL (11.5-14.8); LYMPHOCYTES # (AUTO) 1.8 K/uL (0.8-4.8); LYMPHOCYTES % (AUTO) 31.1 % (20.0-44.0); MEAN CORPUSCULAR HGB CONC 32 g/dl (31.0-36.0); MEAN CORPUSCULAR VOLUME 85 fL (82-100); MONOCYTES # (AUTO) 0.5 K/uL (0.1-1.30); MONOCYTES % (AUTO) 8.5 % (2.0-12.0); NEUTROPHILS # (AUTO) 3.4 K/uL (1.8-8.9); NEUTROPHILS % (AUTO) 59.2 % (43.0-81.0); PLATELET COUNT (AUTO) 242 K/uL (150-450); RED BLOOD CELL COUNT(AUTO) 4.69 MIL/uL (4.0-5.2); WHITE BLOOD COUNT (AUTO) 5.7 K/uL (4.3-11.0)
[2022-08-16 12:16] LABS: ALBUMIN 3.6 g/dL (3.4-5.0); BILIRUBIN,TOTAL 0.3 mg/dL (0.2-1.0); CALCIUM, SERUM 9.2 mg/dL (8.5-10.1); CREATININE 1.1 mg/dL (0.6-1.3); POTASSIUM 3.5 mmol/L (3.5-5.1); TOTAL PROTEIN, SERUM 7.8 g/dL (6.4-8.2)
[2022-08-17 08:07] LABS: CANCER AG, 15-3 12.1 U/mL (0.0-25.0)
== END 2022-08-16 23:59 | disposition home or self-care (01) ==
LOC: LAB 11:14
PROVIDERS: ATTEND Internal Medicine Hematology & Oncology
DX: C50.919 Malignant neoplasm of unspecified site of unspecified female breast (principal); Z03.89 Encounter for observation for other suspected diseases and conditions ruled out; R91.8 Other nonspecific abnormal finding of lung field
CPT/HCPCS: 36415; 80053-TC; 82164; 82378; 85025-TC; 85730-TC; 86300

== ENCOUNTER 2022-08-25 12:09 | Outpatient (CLI) | payer BC ==
[2022-08-25] VITALS (7 sets, daily range): BP systolic 143–150; BP diastolic 80–95
--- NOTE | 2022-08-25 13:26 | NUR ---
PT IS AAOX4, NOT IN RESPIRATORY DISTRESS, HOOKED TO V/S MONITOR, CONSENT SIGNED BY THE PT. IV SALINE LINE ESTABLISHED. KEPT RESTED AND COMFORTABLE. WILL CONTINUE TO MONITOR.
[2022-08-25] MEDS ORDERED: FLUMAZENIL 0.5 MG VIAL IV PRN (14:00)
[2022-08-25] MEDS ORDERED: MIDAZOLAM HCL 2 MG/2ML VIAL IV PRN (14:00)
[2022-08-25] MEDS ORDERED: FENTANYL PF 250MCG/5ML AMPUL IV PRN (14:00)
[2022-08-25] MEDS ORDERED: NALOXONE PREFILLED SYRINGE 2 MG/2 ML SYRINGE IV PRN (14:00)
--- NOTE | 2022-08-25 14:45 | NUR ---
RN NOTE RECEIVED PATIENT FROM RADIOLOGY FOR OBSERVATION, S/P RIGHT LUNG BIOPSY. TRANSFERRED VIA W/C. PATIENT IS ALERT AND ORIENTED X4, VERBALLY RESPONSIVE. NO SIGNS OF ACUTE DISTRESS NOTED. STABLE ON ROOM AIR, NO SOB NOTED, BREATHING EVEN AND UNLABORED. DENIES ANY PAIN AT THIS TIME. VITAL SIGNS TAKEN, STABLE AND RECORDED. SAFETY MEASURE IN PLACE. BED IN LOWEST AND LOCKED POSITION. SIDE RAILS UP X2, CALL LIGHT PLACED WITHIN EASY REACH. WILL CONTINUE TO MONITOR PATIENT.
--- NOTE | 2022-08-25 19:30 | NUR ---
RN NOTE PATIENT DISCHARGED TO HOME IN STABLE CONDITION. HEALTH TEACHINGS AND DISCHARGE INSTRUCTIONS PROVIDED. WITH VERBALIZATION OF UNDERSTANDING. ACCOMPANIED PATIENT TO THE LOBBY VIA W/C, PICKED UP BY YENIFER VIA PRIVATE CAR.
== END 2022-08-25 23:59 | disposition home or self-care (01) ==
LOC: CT 12:09
PROVIDERS: ATTEND Internal Medicine Hematology & Oncology
DX: R91.8 Other nonspecific abnormal finding of lung field (principal); D14.31 Benign neoplasm of right bronchus and lung; Z85.3 Personal history of malignant neoplasm of breast; Z90.13 Acquired absence of bilateral breasts and nipples; Z98.890 Other specified postprocedural states; Z79.899 Other long term (current) drug therapy
CPT/HCPCS: 32408; 71045 ×2; 99152; J2250; J3010; 77012-TC

== ENCOUNTER 2022-08-30 14:52 | Outpatient (CLI) | payer BC ==
[2022-08-30 15:36] LABS: BASOPHILS % (AUTO) 0.3 % (0.0-2.0); EOSINOPHILS % (AUTO) 1.4 % (0.0-6.0); HEMATOCRIT 38 % (33-45); HEMOGLOBIN 12.5 g/dL (11.5-14.8); LYMPHOCYTES # (AUTO) 1.9 K/uL (0.8-4.8); MEAN CORPUSCULAR HGB CONC 33 g/dl (31.0-36.0); MEAN CORPUSCULAR VOLUME 85 fL (82-100); MONOCYTES # (AUTO) 0.6 K/uL (0.1-1.30); MONOCYTES % (AUTO) 10.3 % (2.0-12.0); PLATELET COUNT (AUTO) 218 K/uL (150-450); RED BLOOD CELL COUNT(AUTO) 4.51 MIL/uL (4.0-5.2); WHITE BLOOD COUNT (AUTO) 5.5 K/uL (4.3-11.0)
[2022-08-30 15:56] LABS: ALBUMIN 3.4 g/dL (3.4-5.0); BILIRUBIN,TOTAL 0.1 mg/dL (0.2-1.0); CREATININE 1.2 mg/dL (0.6-1.3); POTASSIUM 3.7 mmol/L (3.5-5.1); TOTAL PROTEIN, SERUM 7.4 g/dL (6.4-8.2)
[2022-08-31 11:07] LABS: CANCER AG, 15-3 11.8 U/mL (0.0-25.0)
== END 2022-08-30 23:59 | disposition home or self-care (01) ==
LOC: LAB 14:52
PROVIDERS: ATTEND Internal Medicine Hematology & Oncology
DX: C50.919 Malignant neoplasm of unspecified site of unspecified female breast (principal); R91.8 Other nonspecific abnormal finding of lung field
CPT/HCPCS: 36415; 80053-TC; 82378; 85025-TC; 85610-TC; 85730-TC; 86300

== ENCOUNTER 2022-09-04 11:05 | Emergency (ER) | payer BC, OTHER ==
[~2022-09-04] VITALS: Ht 160 cm; Wt 72.6 kg
--- NOTE | 2022-09-04 11:14 | NUR ---
dr sung at bedside
[2022-09-04] MEDS ORDERED: ADENOSINE 6 MG/2 ML VIAL ONE (11:18)
[2022-09-04 11:45] LABS: BASOPHILS # (AUTO) 0.1 K/uL (0.0-0.2); BASOPHILS % (AUTO) 0.7 % (0.0-2.0); EOSINOPHILS % (AUTO) 0.9 % (0.0-6.0); HEMATOCRIT 41 % (33-45); HEMOGLOBIN 13.6 g/dL (11.5-14.8); LYMPHOCYTES # (AUTO) 2.6 K/uL (0.8-4.8); LYMPHOCYTES % (AUTO) 34.7 % (20.0-44.0); MEAN CORPUSCULAR HGB CONC 33 g/dl (31.0-36.0); MEAN CORPUSCULAR VOLUME 85 fL (82-100); MONOCYTES # (AUTO) 0.6 K/uL (0.1-1.30); MONOCYTES % (AUTO) 8.4 % (2.0-12.0); NEUTROPHILS # (AUTO) 4.2 K/uL (1.8-8.9); NEUTROPHILS % (AUTO) 55.3 % (43.0-81.0); PLATELET COUNT (AUTO) 233 K/uL (150-450); RED BLOOD CELL COUNT(AUTO) 4.85 MIL/uL (4.0-5.2); WHITE BLOOD COUNT (AUTO) 7.6 K/uL (4.3-11.0)
[2022-09-04 11:51] LABS: CALCIUM, SERUM 8.8 mg/dL (8.5-10.1); CARBON DIOXIDE 29 mmol/L (21-32); CHLORIDE 104 mmol/L (98-107); CREATININE 1.2 mg/dL (0.6-1.3); GLUCOSE 137 mg/dL (74-106); POTASSIUM 3.4 mmol/L (3.5-5.1); SODIUM SERUM 138 mmol/L (136-145); UREA NITROGEN, BLOOD 20 mg/dL (7-18)
[2022-09-04 12:52] VITALS: BP 130/80
== END 2022-09-04 12:52 | disposition home or self-care (01) ==
LOC: ER 11:09
DX: I47.1 Supraventricular tachycardia (principal); I10 Essential (primary) hypertension; E78.5 Hyperlipidemia, unspecified; Z88.8 Allergy status to other drugs, medicaments and biological substances; Z79.899 Other long term (current) drug therapy
CPT/HCPCS: 99285; 71045; 93005 ×3; 85025; 80048; 36415; 84484; J7030; J0153

== ENCOUNTER 2022-09-05 10:50 | Inpatient (IN) | payer BC ==
[~2022-09-05] VITALS: Ht 157.5 cm; Wt 72.6 kg
[2022-09-05] MEDS ORDERED: FLUMAZENIL 0.5 MG VIAL IV PRN (12:30)
[2022-09-05] MEDS ORDERED: NALOXONE PREFILLED SYRINGE 2 MG/2 ML SYRINGE IV PRN (12:30)
[2022-09-05] MEDS ORDERED: FENTANYL PF 250MCG/5ML AMPUL IV PRN (12:30)
[2022-09-05] MEDS ORDERED: MIDAZOLAM HCL 2 MG/2ML VIAL IV PRN (12:30)
[2022-09-05] MEDS ORDERED: LIDOCAINE 1% INJ 50 ML MDV IJ ONE (12:39)
--- NOTE | 2022-09-05 13:45 | NUR ---
ADMITTING NOTES: ADMITTED A 51YO FEMALE PATIENT, FROM CT SCAN/RADIOLOGY DEPARTMENT VIA BED, PATIENT ALERT AND ORIENTED X 4 AND ABLE TO MAKE NEEDS KNOWN. NO SOB OR CARDIAC DISTRESS NOTED, DENIES ANY PAIN AT THIS TIME. VS WNL. PT S/P RIGHT LUNG BIOPSY CT GUIDED AND DIAGNOSED WITH RIGHT PNEUMOTHORAX. ON CHUTE TENDER WITH CURRENT READING SINUS RHYTHM AT 80 BPM. IV ACCESS ON LAC GAUGE 20 PATENT, INTACT AND SALINE LOCKED. SAFETY MEASURES INITIATED: BED LOCKED AND IN LOWEST POSITION SIDE RAILS UP X 2 CALL LIGHT AND BED SIDE TABLE IN EASY REACH. PROVIDED PITCHER OF WATER. ORIENTED TO UNIT, STAFFS. WILL MONITOR ACCORDINGLY.
[2022-09-05] MEDS ORDERED: ACETAMINOPHEN 325 MG TABLET PO PRN (14:30)
[2022-09-05] MEDS ORDERED: ONDANSETRON HCL/PF 4 MG/2 ML VIAL IVP PRN (14:30)
[2022-09-05] MEDS ORDERED: Z GUARD REMEDY 4 OZ OINT TP PRN (14:30)
[2022-09-05 16:00] VITALS: BP 120/80
--- NOTE | 2022-09-05 19:10 | NUR ---
RN NOTES: -RECEIVED LYING COMFORTABLY IN BED, SEMI FOWLERS POSITION, WITH O2 INHALATION AT 2L/MIN VIA NON RE-BREATHER MASK, SPO2-99%,NON LABORED BREATHING, NO SOB NOTED, ON TELE MONITOR SR RATE=80, CONTINENT BOTH B/B, AMBULATORY, ACTIVITY TOLERATED NO SKIN ISSUES, FOR CXR AT 1999, LABS IN THE MORNING, POSSIBLE DISCHARGE IN THE MORNING,ORIENTED TO UNIT AND STAFF, KEPT CALL LIGHT WITHIN EASY REACH, ASPIRATION PRECAUTION OBSERVED. ON CLOSE VISUAL CHECK.
[2022-09-05 20:00] VITALS: BP 154/96
--- NOTE | 2022-09-05 22:37 | NUR ---
RN NOTES: CHECK AT FREQUENT INTERVALS, HER BP-154/96, RE-CHECKED IT IS MORE BETTER -156/88, NATIONAL DEDICATED TRUCK DRIVER NOTIFIED SHE HAS GENERALIZED MILD PAIN, PRN MEDS GIVEN.
[2022-09-06] VITALS: BP 120/76
--- NOTE | 2022-09-06 02:17 | NUR ---
RN NOTES: AWAKE IN BETWEEN, ASSISTED BY PHOTOENGRAVING SUPERVISOR TO GO TO THE BATHROOM, NO PAIN OR DISCOMFORT, NO SOB NOTED,TOLERATE AMBULATION WITHOUT ANY RESPIRATORY DISCOMFORT.
[2022-09-06 04:00] VITALS: BP 129/76
--- NOTE | 2022-09-06 06:17 | NUR ---
RN NOTES: ABLE TO SLEEP AND REST, NO PAIN OR DISCOMFORT, SPECIMEN FROM BOTH NARES COLLECTED AND SEND FOR MRSA TEST, NON LABORED BREATHING, FOR LABS THIS MORNING,FOR POSSIBLE DISCHARGE TODAY, IV CANNULA REMAINS PATENT, TELE MONITOR SR-80, KEPT CALL LIGHT WITHIN EASY REACH, LATEST BP-129/76, AFEBRILE, AWAITING FOR BIOPSY RESULT; ENDORSED FOR CONTINUITY OF CARE.
--- NOTE | 2022-09-06 07:30 | NUR ---
RN opening Note Patient AOx4, no signs of distress or discomfort. Patient able to express her concerns, states no issues. Patient made aware of plan of care and verbalized agreement. All safety precautions taken, call light and table within reach, bed at lowest position.
[2022-09-06 08:03] LABS: BASOPHILS % (AUTO) 0.5 % (0.0-2.0); EOSINOPHILS % (AUTO) 1.2 % (0.0-6.0); HEMATOCRIT 38 % (33-45); HEMOGLOBIN 12.4 g/dL (11.5-14.8); LYMPHOCYTES # (AUTO) 1.5 K/uL (0.8-4.8); LYMPHOCYTES % (AUTO) 27.7 % (20.0-44.0); MEAN CORPUSCULAR HGB CONC 33 g/dl (31.0-36.0); MEAN CORPUSCULAR VOLUME 85 fL (82-100); MONOCYTES # (AUTO) 0.4 K/uL (0.1-1.30); NEUTROPHILS # (AUTO) 3.3 K/uL (1.8-8.9); NEUTROPHILS % (AUTO) 62.6 % (43.0-81.0); PLATELET COUNT (AUTO) 217 K/uL (150-450); RED BLOOD CELL COUNT(AUTO) 4.41 MIL/uL (4.0-5.2); WHITE BLOOD COUNT (AUTO) 5.3 K/uL (4.3-11.0)
[2022-09-06 08:17] LABS: BILIRUBIN,TOTAL 0.4 mg/dL (0.2-1.0); CALCIUM, SERUM 8.4 mg/dL (8.5-10.1); MAGNESIUM 2.2 mg/dL (1.8-2.4); PHOSPHORUS 3.1 mg/dL (2.5-4.9); POTASSIUM 4.2 mmol/L (3.5-5.1); TOTAL PROTEIN, SERUM 6.6 g/dL (6.4-8.2)
--- NOTE | 2022-09-06 14:38 | NUR ---
RN Closing Note Patient AOx4, no signs of distress or discomfort. Patient able to express her concerns, states no issues. Patient agrees with discharge and states she is ready, daughter is downstairs waiting for her. IV removed, no signs of infiltration, discharge instructions and education provided, discussed as well. All safety precautions taken.
== END 2022-09-06 18:03 | disposition home or self-care (01) | DRG 201 ==
LOC: CT 10:50 → EDSTATUS 11:00 → TELE 13:38
PROVIDERS: ADMIT Nurse Practitioner Acute Care; ATTEND Nurse Practitioner Acute Care
PROC: 0BBK3ZX Excision of Right Lung, Percutaneous Approach, Diagnostic (ICD-10-PCS; principal; 2022-09-05)
DX: J95.811 Postprocedural pneumothorax (principal); Z90.13 Acquired absence of bilateral breasts and nipples; Z85.3 Personal history of malignant neoplasm of breast; R91.8 Other nonspecific abnormal finding of lung field; Z92.21 Personal history of antineoplastic chemotherapy; E78.5 Hyperlipidemia, unspecified; K59.00 Constipation, unspecified; Z98.891 History of uterine scar from previous surgery; Z79.82 Long term (current) use of aspirin; Z79.899 Other long term (current) drug therapy; Z79.810 Long term (current) use of selective estrogen receptor modulators (SERMs); Z98.890 Other specified postprocedural states; Z86.79 Personal history of other diseases of the circulatory system; I10 Essential (primary) hypertension; Y84.8 Other medical procedures as the cause of abnormal reaction of the patient, or of later complication, without mention of misadventure at the time of the procedure; Y92.238 Other place in hospital as the place of occurrence of the external cause; Z82.49 Family history of ischemic heart disease and other diseases of the circulatory system; Z83.3 Family history of diabetes mellitus
CPT/HCPCS: 36415; 71045-TC; 77012-TC; 80053-TC; 83735-TC; 84100-TC; 85025-TC; 87081-TC; G0378; J3490

== ENCOUNTER 2022-10-02 14:13 | Outpatient (CLI) | payer BC ==
[~2022-10-02 14:13] MED LIST changes: -CYAN-51 PO; -FERR325T23 PO; -ONDA4TAB11 PO
[2022-10-02 15:13] LABS: BASOPHILS % (AUTO) 0.4 % (0.0-2.0); EOSINOPHILS % (AUTO) 1.1 % (0.0-6.0); HEMATOCRIT 38 % (33-45); HEMOGLOBIN 12.1 g/dL (11.5-14.8); LYMPHOCYTES # (AUTO) 1.9 K/uL (0.8-4.8); LYMPHOCYTES % (AUTO) 32.4 % (20.0-44.0); MEAN CORPUSCULAR HGB CONC 32 g/dl (31.0-36.0); MEAN CORPUSCULAR VOLUME 85 fL (82-100); MONOCYTES # (AUTO) 0.5 K/uL (0.1-1.30); MONOCYTES % (AUTO) 8.9 % (2.0-12.0); NEUTROPHILS # (AUTO) 3.4 K/uL (1.8-8.9); NEUTROPHILS % (AUTO) 57.2 % (43.0-81.0); PLATELET COUNT (AUTO) 219 K/uL (150-450)
[2022-10-02 16:09] LABS: ALBUMIN 3.3 g/dL (3.4-5.0); BILIRUBIN,TOTAL 0.1 mg/dL (0.2-1.0); CALCIUM, SERUM 8.5 mg/dL (8.5-10.1); CREATININE 1.1 mg/dL (0.6-1.3); POTASSIUM 3.7 mmol/L (3.5-5.1); TOTAL PROTEIN, SERUM 7.5 g/dL (6.4-8.2)
== END 2022-10-02 23:59 | disposition home or self-care (01) ==
LOC: LAB 14:13
PROVIDERS: ATTEND Internal Medicine Hematology & Oncology
DX: Z13.228 Encounter for screening for other metabolic disorders (principal); C50.011 Malignant neoplasm of nipple and areola, right female breast; D64.9 Anemia, unspecified; R97.0 Elevated carcinoembryonic antigen [CEA]; R74.02 Elevation of levels of lactic acid dehydrogenase [LDH]
CPT/HCPCS: 36415; 80053-TC; 82378; 83615-TC; 85025-TC; 86300

== ENCOUNTER 2022-10-03 09:47 | Outpatient (CLI) | payer BC ==
[2022-10-03] MEDS ORDERED: IOHEXOL-300 100 ML VIAL IV ONE (10:08)
== END 2022-10-03 23:59 | disposition home or self-care (01) ==
LOC: CT 09:47
PROVIDERS: ATTEND Internal Medicine Hematology & Oncology
DX: C43.9 Malignant melanoma of skin, unspecified (principal); R91.8 Other nonspecific abnormal finding of lung field; R59.9 Enlarged lymph nodes, unspecified; N28.1 Cyst of kidney, acquired
CPT/HCPCS: 71270; 74178; Q9967

== ENCOUNTER 2022-10-06 07:11 | Outpatient (CLI) | payer BC ==
[2022-10-06] MEDS ORDERED: GADOTERATE MEGLUMINE 10 MMOL/20 ML VIAL IV ONE (07:12)
== END 2022-10-06 23:59 | disposition home or self-care (01) ==
LOC: MRI 07:11
PROVIDERS: ATTEND Internal Medicine Hematology & Oncology
DX: C79.2 Secondary malignant neoplasm of skin (principal); J34.1 Cyst and mucocele of nose and nasal sinus; I63.9 Cerebral infarction, unspecified
CPT/HCPCS: 70553; A9575

== ENCOUNTER 2022-10-31 11:03 | Outpatient (CLI) | payer BC ==
[2022-10-31 11:49] LABS: BASOPHILS % (AUTO) 0.5 % (0.0-2.0); EOSINOPHILS % (AUTO) 0.8 % (0.0-6.0); HEMATOCRIT 38 % (33-45); HEMOGLOBIN 12.7 g/dL (11.5-14.8); LYMPHOCYTES # (AUTO) 1.7 K/uL (0.8-4.8); LYMPHOCYTES % (AUTO) 29.5 % (20.0-44.0); MEAN CORPUSCULAR HGB CONC 33 g/dl (31.0-36.0); MEAN CORPUSCULAR VOLUME 85 fL (82-100); MONOCYTES # (AUTO) 0.5 K/uL (0.1-1.30); MONOCYTES % (AUTO) 9.2 % (2.0-12.0); NEUTROPHILS # (AUTO) 3.5 K/uL (1.8-8.9); PLATELET COUNT (AUTO) 224 K/uL (150-450); RED BLOOD CELL COUNT(AUTO) 4.49 MIL/uL (4.0-5.2); WHITE BLOOD COUNT (AUTO) 5.9 K/uL (4.3-11.0)
[2022-10-31 12:05] LABS: ALBUMIN 3.4 g/dL (3.4-5.0); BILIRUBIN,TOTAL 0.2 mg/dL (0.2-1.0); CALCIUM, SERUM 9.4 mg/dL (8.5-10.1); CREATININE 1.3 mg/dL (0.6-1.3); POTASSIUM 3.7 mmol/L (3.5-5.1); TOTAL PROTEIN, SERUM 7.8 g/dL (6.4-8.2)
[2022-11-01 12:07] LABS: CANCER AG, 15-3 11.8 U/mL (0.0-25.0)
== END 2022-10-31 23:59 | disposition home or self-care (01) ==
LOC: LAB 11:03
PROVIDERS: ATTEND Internal Medicine Hematology & Oncology
DX: C43.9 Malignant melanoma of skin, unspecified (principal); C50.919 Malignant neoplasm of unspecified site of unspecified female breast
CPT/HCPCS: 36415; 80053-TC; 82378; 83615-TC; 85025-TC; 86300

== ENCOUNTER 2022-11-21 13:07 | Outpatient (CLI) | payer BC ==
[2022-11-21 13:38] LABS: BASOPHILS % (AUTO) 0.4 % (0.0-2.0); HEMATOCRIT 38 % (33-45); HEMOGLOBIN 12.4 g/dL (11.5-14.8); LYMPHOCYTES # (AUTO) 1.3 K/uL (0.8-4.8); LYMPHOCYTES % (AUTO) 37.2 % (20.0-44.0); MEAN CORPUSCULAR HGB CONC 33 g/dl (31.0-36.0); MEAN CORPUSCULAR VOLUME 85 fL (82-100); MONOCYTES # (AUTO) 0.2 K/uL (0.1-1.30); MONOCYTES % (AUTO) 5.4 % (2.0-12.0); NEUTROPHILS # (AUTO) 1.9 K/uL (1.8-8.9); PLATELET COUNT (AUTO) 115 K/uL (150-450); RED BLOOD CELL COUNT(AUTO) 4.46 MIL/uL (4.0-5.2); WHITE BLOOD COUNT (AUTO) 3.6 K/uL (4.3-11.0)
[2022-11-21 13:55] LABS: ALBUMIN 3.4 g/dL (3.4-5.0); BILIRUBIN,TOTAL 0.2 mg/dL (0.2-1.0); CALCIUM, SERUM 8.7 mg/dL (8.5-10.1); CREATININE 1.6 mg/dL (0.6-1.3); POTASSIUM 3.9 mmol/L (3.5-5.1); TOTAL PROTEIN, SERUM 7.8 g/dL (6.4-8.2)
[2022-11-22 08:07] LABS: CANCER AG, 15-3 12.7 U/mL (0.0-25.0)
== END 2022-11-21 23:59 | disposition home or self-care (01) ==
LOC: LAB 13:07
PROVIDERS: ATTEND Internal Medicine Hematology & Oncology
DX: Z13.228 Encounter for screening for other metabolic disorders (principal); D64.9 Anemia, unspecified; C50.011 Malignant neoplasm of nipple and areola, right female breast; R97.0 Elevated carcinoembryonic antigen [CEA]; R74.02 Elevation of levels of lactic acid dehydrogenase [LDH]
CPT/HCPCS: 36415; 80053-TC; 82378; 83615-TC; 85025-TC; 86300

== ENCOUNTER 2022-11-24 09:53 | Emergency (ER) | payer BC, OTHER ==
[~2022-11-24] VITALS: Ht 160 cm; Wt 72.1 kg
--- NOTE | 2022-11-24 10:10 | NUR ---
PALPITATION AT 0800 WHILE SITTING IN A CHAIR UPSTAIRS
--- NOTE | 2022-11-24 10:12 | NUR ---
place on monitor and cardiac pads
--- NOTE | 2022-11-24 10:15 | NUR ---
at bedside for eval
--- NOTE | 2022-11-24 10:29 | NUR ---
Patient discharged to home in stable condition. Written and verbal after care instructions given. Patient verbalizes understanding of instruction.
[2022-11-24 10:31] VITALS: BP 136/79
== END 2022-11-24 10:31 | disposition home or self-care (01) ==
LOC: ER 09:55
DX: I47.1 Supraventricular tachycardia (principal); R00.2 Palpitations; I10 Essential (primary) hypertension; E11.9 Type 2 diabetes mellitus without complications; Z85.3 Personal history of malignant neoplasm of breast; Z90.13 Acquired absence of bilateral breasts and nipples; Z88.8 Allergy status to other drugs, medicaments and biological substances; Z79.899 Other long term (current) drug therapy
CPT/HCPCS: 71045-TC

== ENCOUNTER 2022-11-28 11:11 | Outpatient (CLI) | payer BC, OTHER ==
[2022-11-28 11:58] LABS: BASOPHILS % (AUTO) 1.1 % (0.0-2.0); EOSINOPHILS % (AUTO) 2.8 % (0.0-6.0); HEMATOCRIT 36 % (33-45); HEMOGLOBIN 11.8 g/dL (11.5-14.8); LYMPHOCYTES # (AUTO) 1.5 K/uL (0.8-4.8); LYMPHOCYTES % (AUTO) 43.1 % (20.0-44.0); MEAN CORPUSCULAR HGB CONC 33 g/dl (31.0-36.0); MEAN CORPUSCULAR VOLUME 84 fL (82-100); MONOCYTES # (AUTO) 0.2 K/uL (0.1-1.30); MONOCYTES % (AUTO) 6.8 % (2.0-12.0); NEUTROPHILS # (AUTO) 1.6 K/uL (1.8-8.9); NEUTROPHILS % (AUTO) 46.2 % (43.0-81.0); PLATELET COUNT (AUTO) 90 K/uL (150-450); RED BLOOD CELL COUNT(AUTO) 4.29 MIL/uL (4.0-5.2); WHITE BLOOD COUNT (AUTO) 3.5 K/uL (4.3-11.0)
[2022-11-28 12:14] LABS: FREE T4 (FREE THYROXINE) 1.02 ng/dL (0.76-1.46); THYROID STIMULATING HORMONE 0.987 uIU/mL (0.358-3.74)
[2022-11-28 16:27] LABS: EOSINOPHILS % (MANUAL) 2 % (0-4); LYMPHOCYTES % (MANUAL) 48 % (16-48); MONOCYTES % (MANUAL) 3 % (0-11.0); NEUTROPHILS % (MANUAL) 47 (42-76)
== END 2022-11-28 23:59 | disposition home or self-care (01) ==
LOC: LAB 11:11
PROVIDERS: ATTEND Internal Medicine Hematology & Oncology
DX: Z13.21 Encounter for screening for nutritional disorder (principal); D64.9 Anemia, unspecified
CPT/HCPCS: 36415; 84439-TC; 84443-TC; 85025-TC

== ENCOUNTER 2022-12-11 10:30 | Outpatient (CLI) | payer BC, OTHER ==
[2022-12-11 11:49] LABS: BASOPHILS % (AUTO) 1.6 % (0.0-2.0); EOSINOPHILS % (AUTO) 1.8 % (0.0-6.0); HEMATOCRIT 32 % (33-45); HEMOGLOBIN 10.3 g/dL (11.5-14.8); LYMPHOCYTES # (AUTO) 1.1 K/uL (0.8-4.8); LYMPHOCYTES % (AUTO) 47.8 % (20.0-44.0); MEAN CORPUSCULAR HGB CONC 33 g/dl (31.0-36.0); MEAN CORPUSCULAR VOLUME 84 fL (82-100); MONOCYTES # (AUTO) 0.1 K/uL (0.1-1.30); MONOCYTES % (AUTO) 4.9 % (2.0-12.0); NEUTROPHILS % (AUTO) 43.9 % (43.0-81.0); PLATELET COUNT (AUTO) 115 K/uL (150-450); RED BLOOD CELL COUNT(AUTO) 3.77 MIL/uL (4.0-5.2); WHITE BLOOD COUNT (AUTO) 2.4 K/uL (4.3-11.0)
[2022-12-11 11:50] LABS: ALBUMIN 3.1 g/dL (3.4-5.0); BILIRUBIN,TOTAL 0.2 mg/dL (0.2-1.0); CALCIUM, SERUM 8.8 mg/dL (8.5-10.1); CREATININE 1.5 mg/dL (0.6-1.3); POTASSIUM 3.8 mmol/L (3.5-5.1); TOTAL PROTEIN, SERUM 7.1 g/dL (6.4-8.2)
[2022-12-12 13:07] LABS: CANCER AG, 15-3 12.4 U/mL (0.0-25.0)
== END 2022-12-11 23:59 | disposition home or self-care (01) ==
LOC: LAB 10:30
PROVIDERS: ATTEND Internal Medicine Hematology & Oncology
DX: Z13.228 Encounter for screening for other metabolic disorders (principal); D64.9 Anemia, unspecified; C50.011 Malignant neoplasm of nipple and areola, right female breast; R97.0 Elevated carcinoembryonic antigen [CEA]; R74.02 Elevation of levels of lactic acid dehydrogenase [LDH]
CPT/HCPCS: 36415; 80053-TC; 82378; 83615-TC; 85025-TC; 86300

== ENCOUNTER 2022-12-18 09:59 | Outpatient (CLI) | payer BC, OTHER ==
[2022-12-18 10:35] LABS: BASOPHILS # (AUTO) 0.1 K/uL (0.0-0.2); BASOPHILS % (AUTO) 1.7 % (0.0-2.0); EOSINOPHILS % (AUTO) 1.2 % (0.0-6.0); HEMATOCRIT 29 % (33-45); HEMOGLOBIN 9.5 g/dL (11.5-14.8); LYMPHOCYTES # (AUTO) 1.6 K/uL (0.8-4.8); MEAN CORPUSCULAR HGB CONC 33 g/dl (31.0-36.0); MEAN CORPUSCULAR VOLUME 85 fL (82-100); MONOCYTES # (AUTO) 0.2 K/uL (0.1-1.30); MONOCYTES % (AUTO) 7.4 % (2.0-12.0); NEUTROPHILS # (AUTO) 1.1 K/uL (1.8-8.9); NEUTROPHILS % (AUTO) 36.7 % (43.0-81.0); PLATELET COUNT (AUTO) 155 K/uL (150-450)
[2022-12-18 10:59] LABS: BILIRUBIN,TOTAL 0.2 mg/dL (0.2-1.0); CALCIUM, SERUM 8.6 mg/dL (8.5-10.1); CREATININE 1.4 mg/dL (0.6-1.3)
[2022-12-19 12:07] LABS: CANCER AG, 15-3 14.1 U/mL (0.0-25.0)
== END 2022-12-18 23:59 | disposition home or self-care (01) ==
LOC: LAB 09:59
PROVIDERS: ATTEND Internal Medicine Hematology & Oncology
DX: Z13.228 Encounter for screening for other metabolic disorders (principal); D64.9 Anemia, unspecified; C50.011 Malignant neoplasm of nipple and areola, right female breast; R97.0 Elevated carcinoembryonic antigen [CEA]
CPT/HCPCS: 36415; 80053-TC; 82378; 85025-TC; 86300

== ENCOUNTER 2022-12-26 10:40 | Outpatient (CLI) | payer BC, OTHER ==
[2022-12-26 11:14] LABS: BASOPHILS # (AUTO) 0.1 K/uL (0.0-0.2); BASOPHILS % (AUTO) 2.4 % (0.0-2.0); EOSINOPHILS % (AUTO) 1.7 % (0.0-6.0); HEMATOCRIT 32 % (33-45); HEMOGLOBIN 10.3 g/dL (11.5-14.8); LYMPHOCYTES % (AUTO) 40.3 % (20.0-44.0); MEAN CORPUSCULAR HGB CONC 33 g/dl (31.0-36.0); MEAN CORPUSCULAR VOLUME 86 fL (82-100); MONOCYTES # (AUTO) 0.9 K/uL (0.1-1.30); MONOCYTES % (AUTO) 17.5 % (2.0-12.0); NEUTROPHILS # (AUTO) 1.9 K/uL (1.8-8.9); NEUTROPHILS % (AUTO) 38.1 % (43.0-81.0); PLATELET COUNT (AUTO) 203 K/uL (150-450); RED BLOOD CELL COUNT(AUTO) 3.68 MIL/uL (4.0-5.2); WHITE BLOOD COUNT (AUTO) 4.9 K/uL (4.3-11.0)
[2022-12-26 15:33] LABS: EOSINOPHILS % (MANUAL) 2 % (0-4); LYMPHOCYTES % (MANUAL) 41 % (16-48); MONOCYTES % (MANUAL) 12 % (0-11.0); NEUTROPHILS % (MANUAL) 43 (42-76); REACTIVE LYMPHOCYTES 2 % (0-0)
== END 2022-12-26 23:59 | disposition home or self-care (01) ==
LOC: LAB 10:40
PROVIDERS: ATTEND Internal Medicine Hematology & Oncology
DX: D64.9 Anemia, unspecified (principal)
CPT/HCPCS: 36415; 85025-TC

== ENCOUNTER 2023-01-01 08:47 | Outpatient (CLI) | payer BC, OTHER ==
[2023-01-01] MEDS ORDERED: IOHEXOL-300 100 ML VIAL IV ONE (09:12)
[2023-01-01] MEDS ORDERED: IV NS 0.9% 250 ML IV ONE (09:12)
== END 2023-01-01 23:59 | disposition home or self-care (01) ==
LOC: CT 08:47
PROVIDERS: ATTEND Internal Medicine Hematology & Oncology
DX: C43.9 Malignant melanoma of skin, unspecified (principal); N28.1 Cyst of kidney, acquired; R91.8 Other nonspecific abnormal finding of lung field
CPT/HCPCS: 71260; 74177; J7050; Q9967

== ENCOUNTER 2023-01-08 10:05 | Outpatient (CLI) | payer BC, OTHER ==
[2023-01-08 11:39] LABS: BASOPHILS # (AUTO) 0.1 K/uL (0.0-0.2); EOSINOPHILS % (AUTO) 2.2 % (0.0-6.0); HEMATOCRIT 32 % (33-45); HEMOGLOBIN 10.7 g/dL (11.5-14.8); LYMPHOCYTES # (AUTO) 2.2 K/uL (0.8-4.8); LYMPHOCYTES % (AUTO) 34.7 % (20.0-44.0); MEAN CORPUSCULAR HGB CONC 33 g/dl (31.0-36.0); MEAN CORPUSCULAR VOLUME 87 fL (82-100); MONOCYTES # (AUTO) 0.7 K/uL (0.1-1.30); MONOCYTES % (AUTO) 11.4 % (2.0-12.0); NEUTROPHILS # (AUTO) 3.2 K/uL (1.8-8.9); NEUTROPHILS % (AUTO) 50.7 % (43.0-81.0); PLATELET COUNT (AUTO) 286 K/uL (150-450); RED BLOOD CELL COUNT(AUTO) 3.72 MIL/uL (4.0-5.2); WHITE BLOOD COUNT (AUTO) 6.3 K/uL (4.3-11.0)
[2023-01-08 11:46] LABS: ALBUMIN 3.3 g/dL (3.4-5.0); BILIRUBIN,TOTAL 0.2 mg/dL (0.2-1.0); CALCIUM, SERUM 9.3 mg/dL (8.5-10.1); CREATININE 1.3 mg/dL (0.6-1.3); POTASSIUM 3.9 mmol/L (3.5-5.1); TOTAL PROTEIN, SERUM 7.4 g/dL (6.4-8.2)
== END 2023-01-08 23:59 | disposition home or self-care (01) ==
LOC: LAB 10:05
PROVIDERS: ATTEND Internal Medicine Hematology & Oncology
DX: Z13.228 Encounter for screening for other metabolic disorders (principal); D64.9 Anemia, unspecified
CPT/HCPCS: 36415; 80053-TC; 85025-TC

== ENCOUNTER 2023-01-29 10:41 | Outpatient (CLI) | payer BC, OTHER ==
[2023-01-29 11:50] LABS: BILIRUBIN,TOTAL 1.8 mg/dL (0.2-1.0); CALCIUM, SERUM 8.9 mg/dL (8.5-10.1); CREATININE 1.3 mg/dL (0.6-1.3); POTASSIUM 4.2 mmol/L (3.5-5.1)
[2023-01-29 11:51] LABS: ALBUMIN 3.4 g/dL (3.4-5.0); TOTAL PROTEIN, SERUM 7.6 g/dL (6.4-8.2)
[2023-01-29 11:57] LABS: BASOPHILS # (AUTO) 0.1 K/uL (0.0-0.2); BASOPHILS % (AUTO) 1.3 % (0.0-2.0); EOSINOPHILS % (AUTO) 6.1 % (0.0-6.0); HEMATOCRIT 36 % (33-45); HEMOGLOBIN 11.8 g/dL (11.5-14.8); LYMPHOCYTES # (AUTO) 1.6 K/uL (0.8-4.8); LYMPHOCYTES % (AUTO) 27.1 % (20.0-44.0); MEAN CORPUSCULAR HGB CONC 33 g/dl (31.0-36.0); MEAN CORPUSCULAR VOLUME 90 fL (82-100); MONOCYTES # (AUTO) 0.6 K/uL (0.1-1.30); MONOCYTES % (AUTO) 10.3 % (2.0-12.0); NEUTROPHILS # (AUTO) 3.2 K/uL (1.8-8.9); NEUTROPHILS % (AUTO) 55.2 % (43.0-81.0); PLATELET COUNT (AUTO) 181 K/uL (150-450); RED BLOOD CELL COUNT(AUTO) 3.99 MIL/uL (4.0-5.2); WHITE BLOOD COUNT (AUTO) 5.8 K/uL (4.3-11.0)
== END 2023-01-29 23:59 | disposition home or self-care (01) ==
LOC: LAB 10:41
PROVIDERS: ATTEND Internal Medicine Hematology & Oncology
DX: Z13.228 Encounter for screening for other metabolic disorders (principal); D64.9 Anemia, unspecified; C50.011 Malignant neoplasm of nipple and areola, right female breast
CPT/HCPCS: 36415; 80053-TC; 85025-TC; 86300

== ENCOUNTER 2023-02-13 09:38 | Outpatient (CLI) | payer BC, OTHER ==
[2023-02-13 10:03] LABS: BASOPHILS # (AUTO) 0.1 K/uL (0.0-0.2); BASOPHILS % (AUTO) 0.8 % (0.0-2.0); EOSINOPHILS % (AUTO) 5.6 % (0.0-6.0); HEMATOCRIT 35 % (33-45); HEMOGLOBIN 11.6 g/dL (11.5-14.8); LYMPHOCYTES # (AUTO) 2.3 K/uL (0.8-4.8); MEAN CORPUSCULAR HGB CONC 33 g/dl (31.0-36.0); MEAN CORPUSCULAR VOLUME 89 fL (82-100); MONOCYTES # (AUTO) 0.6 K/uL (0.1-1.30); MONOCYTES % (AUTO) 8.6 % (2.0-12.0); NEUTROPHILS # (AUTO) 3.9 K/uL (1.8-8.9); PLATELET COUNT (AUTO) 190 K/uL (150-450); RED BLOOD CELL COUNT(AUTO) 3.95 MIL/uL (4.0-5.2); WHITE BLOOD COUNT (AUTO) 7.3 K/uL (4.3-11.0)
[2023-02-13 10:31] LABS: ALBUMIN 3.1 g/dL (3.4-5.0); BILIRUBIN,TOTAL 0.4 mg/dL (0.2-1.0); CREATININE 1.2 mg/dL (0.6-1.3); POTASSIUM 4.1 mmol/L (3.5-5.1); TOTAL PROTEIN, SERUM 7.4 g/dL (6.4-8.2)
== END 2023-02-13 23:59 | disposition home or self-care (01) ==
LOC: LAB 09:38
PROVIDERS: ATTEND Internal Medicine Hematology & Oncology
DX: Z13.228 Encounter for screening for other metabolic disorders (principal); D64.9 Anemia, unspecified
CPT/HCPCS: 36415; 80053-TC; 85025-TC

== ENCOUNTER 2023-02-26 10:26 | Outpatient (CLI) | payer BC, OTHER ==
[2023-02-26 11:25] LABS: BASOPHILS # (AUTO) 0.1 K/uL (0.0-0.2); BASOPHILS % (AUTO) 0.9 % (0.0-2.0); EOSINOPHILS % (AUTO) 5.6 % (0.0-6.0); HEMATOCRIT 36 % (33-45); LYMPHOCYTES % (AUTO) 30.7 % (20.0-44.0); MEAN CORPUSCULAR HGB CONC 34 g/dl (31.0-36.0); MEAN CORPUSCULAR VOLUME 88 fL (82-100); MONOCYTES # (AUTO) 0.7 K/uL (0.1-1.30); MONOCYTES % (AUTO) 10.5 % (2.0-12.0); NEUTROPHILS # (AUTO) 3.5 K/uL (1.8-8.9); NEUTROPHILS % (AUTO) 52.3 % (43.0-81.0); PLATELET COUNT (AUTO) 195 K/uL (150-450); RED BLOOD CELL COUNT(AUTO) 4.07 MIL/uL (4.0-5.2); WHITE BLOOD COUNT (AUTO) 6.6 K/uL (4.3-11.0)
[2023-02-26 11:38] LABS: ALBUMIN 3.2 g/dL (3.4-5.0); BILIRUBIN,TOTAL 0.3 mg/dL (0.2-1.0); CALCIUM, SERUM 8.8 mg/dL (8.5-10.1); CREATININE 1.1 mg/dL (0.6-1.3); POTASSIUM 4.2 mmol/L (3.5-5.1); TOTAL PROTEIN, SERUM 7.4 g/dL (6.4-8.2)
[2023-02-27 12:07] LABS: CANCER AG, 15-3 17.1 U/mL (0.0-25.0)
== END 2023-02-26 23:59 | disposition home or self-care (01) ==
LOC: LAB 10:26
PROVIDERS: ATTEND Internal Medicine Hematology & Oncology
DX: Z13.228 Encounter for screening for other metabolic disorders (principal); C50.011 Malignant neoplasm of nipple and areola, right female breast; D64.9 Anemia, unspecified; R74.02 Elevation of levels of lactic acid dehydrogenase [LDH]; R97.0 Elevated carcinoembryonic antigen [CEA]
CPT/HCPCS: 36415; 80053-TC; 82378; 83615-TC; 85025-TC; 86300

== ENCOUNTER 2023-04-09 10:30 | Outpatient (CLI) | payer BC, OTHER ==
[2023-04-09 11:28] LABS: ALBUMIN 3.3 g/dL (3.4-5.0); BILIRUBIN,TOTAL 0.2 mg/dL (0.2-1.0); CALCIUM, SERUM 9.3 mg/dL (8.5-10.1); CREATININE 1.1 mg/dL (0.6-1.3); POTASSIUM 4.1 mmol/L (3.5-5.1); TOTAL PROTEIN, SERUM 7.5 g/dL (6.4-8.2)
[2023-04-09 12:10] LABS: BASOPHILS # (AUTO) 0.1 K/uL (0.0-0.2); BASOPHILS % (AUTO) 1.1 % (0.0-2.0); EOSINOPHILS % (AUTO) 2.7 % (0.0-6.0); HEMATOCRIT 40 % (33-45); HEMOGLOBIN 13.3 g/dL (11.5-14.8); LYMPHOCYTES # (AUTO) 1.9 K/uL (0.8-4.8); LYMPHOCYTES % (AUTO) 32.5 % (20.0-44.0); MEAN CORPUSCULAR HGB CONC 33 g/dl (31.0-36.0); MEAN CORPUSCULAR VOLUME 87 fL (82-100); MONOCYTES # (AUTO) 0.4 K/uL (0.1-1.30); NEUTROPHILS # (AUTO) 3.4 K/uL (1.8-8.9); NEUTROPHILS % (AUTO) 56.7 % (43.0-81.0); PLATELET COUNT (AUTO) 209 K/uL (150-450); RED BLOOD CELL COUNT(AUTO) 4.56 MIL/uL (4.0-5.2); WHITE BLOOD COUNT (AUTO) 5.9 K/uL (4.3-11.0)
== END 2023-04-09 23:59 | disposition home or self-care (01) ==
LOC: LAB 10:30
PROVIDERS: ATTEND Internal Medicine Hematology & Oncology
DX: Z13.228 Encounter for screening for other metabolic disorders (principal); D64.9 Anemia, unspecified; R74.02 Elevation of levels of lactic acid dehydrogenase [LDH]
CPT/HCPCS: 36415; 80053-TC; 83615-TC; 85025-TC

== ENCOUNTER 2023-05-15 10:43 | Emergency (ER) | payer BC, OTHER ==
[~2023-05-15] VITALS: Ht 157.5 cm; Wt 77.1 kg
[2023-05-15] MEDS ORDERED: ADENOSINE 6 MG/2 ML VIAL ONE (10:55)
[2023-05-15] MEDS ORDERED: ADENOSINE 6 MG/2 ML VIAL IVP ONE (11:30)
[2023-05-15 11:53] LABS: BASOPHILS % (AUTO) 0.5 % (0.0-2.0); EOSINOPHILS # (AUTO) 0.2 K/uL (0.0-0.7); EOSINOPHILS % (AUTO) 1.7 % (0.0-6.0); HEMATOCRIT 42 % (33-45); HEMOGLOBIN 13.7 g/dL (11.5-14.8); LYMPHOCYTES # (AUTO) 3.3 K/uL (0.8-4.8); LYMPHOCYTES % (AUTO) 34.6 % (20.0-44.0); MEAN CORPUSCULAR HEMOGLOBIN 29 PG (26.0-33.0); MEAN CORPUSCULAR HGB CONC 33 g/dl (31.0-36.0); MEAN CORPUSCULAR VOLUME 87 fL (82-100); MONOCYTES # (AUTO) 0.9 K/uL (0.1-1.30); MONOCYTES % (AUTO) 9.9 % (2.0-12.0); NEUTROPHILS # (AUTO) 5.1 K/uL (1.8-8.9); NEUTROPHILS % (AUTO) 53.3 % (43.0-81.0); PLATELET COUNT (AUTO) 215 K/uL (150-450); RED BLOOD CELL COUNT(AUTO) 4.79 MIL/uL (4.0-5.2); RED CELL DISTRIBUTION WIDTH 13.5 % (11.5-15.0); WHITE BLOOD COUNT (AUTO) 9.5 K/uL (4.3-11.0)
[2023-05-15 12:16] LABS: CALCIUM, SERUM 9.4 mg/dL (8.5-10.1); CARBON DIOXIDE 26 mmol/L (21-32); CHLORIDE 105 mmol/L (98-107); GLUCOSE 103 mg/dL (74-106); POTASSIUM 3.8 mmol/L (3.5-5.1); SODIUM SERUM 140 mmol/L (136-145); UREA NITROGEN, BLOOD 19 mg/dL (7-18)
[2023-05-15 13:07] VITALS: BP 123/76; TEMP 98.2; O2SAT 98
== END 2023-05-15 13:09 | disposition home or self-care (01) ==
LOC: ER 10:50
DX: I47.1 Supraventricular tachycardia (principal); E11.9 Type 2 diabetes mellitus without complications; Z79.82 Long term (current) use of aspirin; Z79.899 Other long term (current) drug therapy; Z98.890 Other specified postprocedural states; Z88.1 Allergy status to other antibiotic agents
CPT/HCPCS: 99285; 96374; 71045; 93005 ×2; 85025; 80048; 36415; 84484; J0153

== ENCOUNTER 2023-05-28 00:54 | Emergency (ER) | payer BC, OTHER ==
[~2023-05-28] VITALS: Ht 157.5 cm; Wt 77.1 kg
[2023-05-28] MEDS ORDERED: ADENOSINE 6 MG/2 ML VIAL ONE (01:21)
[2023-05-28] MEDS ORDERED: ADENOSINE 6 MG/2 ML VIAL IVP ONE (01:30)
[2023-05-28 03:09] VITALS: BP 154/131; TEMP 98.1; O2SAT 99
== END 2023-05-28 03:13 | disposition home or self-care (01) ==
LOC: ER 00:55
DX: I47.1 Supraventricular tachycardia (principal); I10 Essential (primary) hypertension; E11.9 Type 2 diabetes mellitus without complications; Z79.82 Long term (current) use of aspirin; Z98.890 Other specified postprocedural states; Z79.899 Other long term (current) drug therapy; Z88.1 Allergy status to other antibiotic agents
CPT/HCPCS: 99291; 93005; J0153

== ENCOUNTER 2023-05-28 15:11 | Outpatient (CLI) | payer BC, OTHER ==
[2023-05-28 15:38] LABS: BASOPHILS % (AUTO) 0.2 % (0.0-2.0); EOSINOPHILS # (AUTO) 0.1 K/uL (0.0-0.7); EOSINOPHILS % (AUTO) 1.4 % (0.0-6.0); HEMATOCRIT 38 % (33-45); HEMOGLOBIN 12.6 g/dL (11.5-14.8); LYMPHOCYTES # (AUTO) 2.1 K/uL (0.8-4.8); LYMPHOCYTES % (AUTO) 30.5 % (20.0-44.0); MEAN CORPUSCULAR HEMOGLOBIN 29 PG (26.0-33.0); MEAN CORPUSCULAR HGB CONC 33 g/dl (31.0-36.0); MEAN CORPUSCULAR VOLUME 86 fL (82-100); MONOCYTES # (AUTO) 0.6 K/uL (0.1-1.30); MONOCYTES % (AUTO) 9.3 % (2.0-12.0); NEUTROPHILS # (AUTO) 4.1 K/uL (1.8-8.9); NEUTROPHILS % (AUTO) 58.6 % (43.0-81.0); PLATELET COUNT (AUTO) 191 K/uL (150-450); RED CELL DISTRIBUTION WIDTH 12.9 % (11.5-15.0); WHITE BLOOD COUNT (AUTO) 6.9 K/uL (4.3-11.0)
[2023-05-28 16:00] LABS: ALBUMIN 3.2 g/dL (3.4-5.0); BILIRUBIN,TOTAL 0.2 mg/dL (0.2-1.0); CALCIUM, SERUM 9.6 mg/dL (8.5-10.1); CREATININE 1.3 mg/dL (0.6-1.3); POTASSIUM 3.9 mmol/L (3.5-5.1); TOTAL PROTEIN, SERUM 7.2 g/dL (6.4-8.2)
== END 2023-05-28 23:59 | disposition home or self-care (01) ==
LOC: LAB 15:11
PROVIDERS: ATTEND Internal Medicine Hematology & Oncology
DX: Z13.228 Encounter for screening for other metabolic disorders (principal); D64.9 Anemia, unspecified
CPT/HCPCS: 36415; 80053-TC; 85025-TC

== ENCOUNTER 2023-05-29 08:37 | Outpatient (CLI) | payer BC, OTHER | END 2023-05-29 23:59 | disposition home or self-care (01) | LOC: CT 08:37 | PROVIDERS: ATTEND Internal Medicine Hematology & Oncology | DX: R91.1 Solitary pulmonary nodule (principal); M51.34 Other intervertebral disc degeneration, thoracic region | CPT/HCPCS: 71250-TC ==

== ENCOUNTER 2023-06-11 10:38 | Outpatient (CLI) | payer BC, OTHER ==
[2023-06-11 11:28] LABS: BASOPHILS % (AUTO) 0.3 % (0.0-2.0); EOSINOPHILS # (AUTO) 0.1 K/uL (0.0-0.7); EOSINOPHILS % (AUTO) 1.8 % (0.0-6.0); HEMATOCRIT 39 % (33-45); HEMOGLOBIN 12.9 g/dL (11.5-14.8); LYMPHOCYTES % (AUTO) 29.6 % (20.0-44.0); MEAN CORPUSCULAR HEMOGLOBIN 29 PG (26.0-33.0); MEAN CORPUSCULAR HGB CONC 33 g/dl (31.0-36.0); MEAN CORPUSCULAR VOLUME 87 fL (82-100); MONOCYTES # (AUTO) 0.8 K/uL (0.1-1.30); MONOCYTES % (AUTO) 11.7 % (2.0-12.0); NEUTROPHILS # (AUTO) 3.9 K/uL (1.8-8.9); NEUTROPHILS % (AUTO) 56.6 % (43.0-81.0); PLATELET COUNT (AUTO) 201 K/uL (150-450); RED BLOOD CELL COUNT(AUTO) 4.49 MIL/uL (4.0-5.2); RED CELL DISTRIBUTION WIDTH 13.5 % (11.5-15.0); WHITE BLOOD COUNT (AUTO) 6.9 K/uL (4.3-11.0)
[2023-06-11 11:31] LABS: ALBUMIN 3.4 g/dL (3.4-5.0); BILIRUBIN,TOTAL 0.2 mg/dL (0.2-1.0); CALCIUM, SERUM 9.1 mg/dL (8.5-10.1); CREATININE 1.1 mg/dL (0.6-1.3); POTASSIUM 4.1 mmol/L (3.5-5.1); TOTAL PROTEIN, SERUM 7.4 g/dL (6.4-8.2)
== END 2023-06-11 23:59 | disposition home or self-care (01) ==
LOC: LAB 10:38
PROVIDERS: ATTEND Internal Medicine Hematology & Oncology
DX: Z13.228 Encounter for screening for other metabolic disorders (principal); D64.9 Anemia, unspecified
CPT/HCPCS: 36415; 80053-TC; 85025-TC

== ENCOUNTER 2023-11-19 10:49 | Outpatient (CLI) | payer BC, OTHER ==
[2023-11-19 11:18] LABS: BASOPHILS % (AUTO) 0.6 % (0.0-2.0); EOSINOPHILS # (AUTO) 0.2 K/uL (0.0-0.7); EOSINOPHILS % (AUTO) 2.1 % (0.0-6.0); HEMATOCRIT 38 % (33-45); HEMOGLOBIN 12.8 g/dL (11.5-14.8); LYMPHOCYTES # (AUTO) 2.5 K/uL (0.8-4.8); LYMPHOCYTES % (AUTO) 34.4 % (20.0-44.0); MEAN CORPUSCULAR HEMOGLOBIN 29 PG (26.0-33.0); MEAN CORPUSCULAR HGB CONC 34 g/dl (31.0-36.0); MEAN CORPUSCULAR VOLUME 87 fL (82-100); MONOCYTES # (AUTO) 0.5 K/uL (0.1-1.30); MONOCYTES % (AUTO) 6.7 % (2.0-12.0); NEUTROPHILS % (AUTO) 56.2 % (43.0-81.0); PLATELET COUNT (AUTO) 213 K/uL (150-450); RED BLOOD CELL COUNT(AUTO) 4.38 MIL/uL (4.0-5.2); RED CELL DISTRIBUTION WIDTH 13.1 % (11.5-15.0); WHITE BLOOD COUNT (AUTO) 7.1 K/uL (4.3-11.0)
[2023-11-19 11:35] LABS: ALBUMIN 3.6 g/dL (3.4-5.0); BILIRUBIN,TOTAL 0.3 mg/dL (0.2-1.0); CALCIUM, SERUM 9.1 mg/dL (8.5-10.1); POTASSIUM 3.8 mmol/L (3.5-5.1); TOTAL PROTEIN, SERUM 7.6 g/dL (6.4-8.2)
[2023-11-20 07:10] LABS: CANCER AG, 15-3 13.9 U/mL (0.0-25.0)
== END 2023-11-19 23:59 | disposition home or self-care (01) ==
LOC: LAB 10:49
PROVIDERS: ATTEND Internal Medicine Hematology & Oncology
DX: Z13.228 Encounter for screening for other metabolic disorders (principal); C50.011 Malignant neoplasm of nipple and areola, right female breast; D64.9 Anemia, unspecified; R97.0 Elevated carcinoembryonic antigen [CEA]
CPT/HCPCS: 36415; 80053-TC; 82378; 85025-TC; 86300

== ENCOUNTER 2024-03-16 11:19 | Emergency (ER) | payer BC, OTHER ==
[~2024-03-16] VITALS: Ht 170.2 cm; Wt 74.4 kg
[2024-03-16 11:32] VITALS: TEMP 98.2
[2024-03-16] MEDS ORDERED: ADENOSINE 6 MG/2 ML VIAL ONE (11:39)
[2024-03-16] MEDS: ADENOSINE 6 MG/2 ML VIAL IVP ONE (11:46)
[2024-03-16] MEDS: LABETALOL HCL IV 100MG VIAL IV ONE (12:08)
[2024-03-16 12:36] LABS: BASOPHILS % (AUTO) 0.5 % (0.0-2.0); EOSINOPHILS # (AUTO) 0.1 K/uL (0.0-0.7); HEMATOCRIT 41 % (33-45); HEMOGLOBIN 13.6 g/dL (11.5-14.8); LYMPHOCYTES # (AUTO) 2.5 K/uL (0.8-4.8); LYMPHOCYTES % (AUTO) 33.1 % (20.0-44.0); MEAN CORPUSCULAR HEMOGLOBIN 28 PG (26.0-33.0); MEAN CORPUSCULAR HGB CONC 33 g/dl (31.0-36.0); MEAN CORPUSCULAR VOLUME 85 fL (82-100); MONOCYTES # (AUTO) 0.6 K/uL (0.1-1.30); MONOCYTES % (AUTO) 7.8 % (2.0-12.0); NEUTROPHILS # (AUTO) 4.3 K/uL (1.8-8.9); NEUTROPHILS % (AUTO) 57.6 % (43.0-81.0); PLATELET COUNT (AUTO) 222 K/uL (150-450); RED BLOOD CELL COUNT(AUTO) 4.85 MIL/uL (4.0-5.2); RED CELL DISTRIBUTION WIDTH 13.6 % (11.5-15.0); WHITE BLOOD COUNT (AUTO) 7.5 K/uL (4.3-11.0)
[2024-03-16 12:49] LABS: CALCIUM, SERUM 9.8 mg/dL (8.5-10.1); CARBON DIOXIDE 26 mmol/L (21-32); CHLORIDE 105 mmol/L (98-107); CREATININE 1.5 mg/dL (0.6-1.3); GLUCOSE 132 mg/dL (74-106); POTASSIUM 3.6 mmol/L (3.5-5.1); SODIUM SERUM 143 mmol/L (136-145); UREA NITROGEN, BLOOD 23 mg/dL (7-18)
[2024-03-16 13:47] VITALS: BP 120/87; O2SAT 99
== END 2024-03-16 13:48 | disposition home or self-care (01) ==
LOC: ER 11:35
DX: I47.10 Supraventricular tachycardia, unspecified (principal); I10 Essential (primary) hypertension; E11.9 Type 2 diabetes mellitus without complications; Z98.890 Other specified postprocedural states; Z79.899 Other long term (current) drug therapy; Z79.82 Long term (current) use of aspirin; Z88.1 Allergy status to other antibiotic agents
CPT/HCPCS: 99285; 96374; 71045; 93005 ×3; 85025; 80048; 36415; 84484; J0153; J7030; A4223

== ENCOUNTER 2024-03-28 09:40 | Emergency (ER) | payer BC, OTHER ==
[~2024-03-28] VITALS: Ht 157.5 cm; Wt 73.9 kg
[2024-03-28 09:48] VITALS: TEMP 97.8
[2024-03-28] MEDS ORDERED: ADENOSINE 6 MG/2 ML VIAL ONE (09:53)
[2024-03-28 10:55] VITALS: BP 138/100; O2SAT 99
== END 2024-03-28 10:55 | disposition home or self-care (01) ==
LOC: ER 09:46
DX: I47.10 Supraventricular tachycardia, unspecified (principal); E11.9 Type 2 diabetes mellitus without complications; Z98.890 Other specified postprocedural states; Z79.82 Long term (current) use of aspirin; Z79.899 Other long term (current) drug therapy; Z88.1 Allergy status to other antibiotic agents
CPT/HCPCS: J0153

== ENCOUNTER 2024-05-20 10:45 | Outpatient (CLI) | payer BC ==
[2024-05-20 11:25] LABS: BASOPHILS % (AUTO) 0.8 % (0.0-2.0); EOSINOPHILS # (AUTO) 0.1 K/uL (0.0-0.7); HEMATOCRIT 40 % (33-45); HEMOGLOBIN 12.9 g/dL (11.5-14.8); LYMPHOCYTES # (AUTO) 2.2 K/uL (0.8-4.8); LYMPHOCYTES % (AUTO) 35.9 % (20.0-44.0); MEAN CORPUSCULAR HEMOGLOBIN 28 PG (26.0-33.0); MEAN CORPUSCULAR HGB CONC 33 g/dl (31.0-36.0); MEAN CORPUSCULAR VOLUME 86 fL (82-100); MONOCYTES # (AUTO) 0.6 K/uL (0.1-1.30); MONOCYTES % (AUTO) 10.5 % (2.0-12.0); NEUTROPHILS # (AUTO) 3.1 K/uL (1.8-8.9); NEUTROPHILS % (AUTO) 50.8 % (43.0-81.0); PLATELET COUNT (AUTO) 228 K/uL (150-450); RED CELL DISTRIBUTION WIDTH 13.6 % (11.5-15.0); WHITE BLOOD COUNT (AUTO) 6.1 K/uL (4.3-11.0)
[2024-05-20 11:36] LABS: ALBUMIN 3.3 g/dL (3.4-5.0); BILIRUBIN,TOTAL 0.2 mg/dL (0.2-1.0); CALCIUM, SERUM 9.8 mg/dL (8.5-10.1); POTASSIUM 4.2 mmol/L (3.5-5.1); TOTAL PROTEIN, SERUM 7.4 g/dL (6.4-8.2)
== END 2024-05-20 23:59 | disposition home or self-care (01) ==
LOC: LAB 10:45
PROVIDERS: ATTEND Internal Medicine Hematology & Oncology
DX: Z13.228 Encounter for screening for other metabolic disorders (principal); D64.9 Anemia, unspecified
CPT/HCPCS: 36415; 80053-TC; 85025-TC

== ENCOUNTER 2024-06-02 10:52 | Outpatient (CLI) | payer BC ==
[2024-06-02 11:21] LABS: BASOPHILS % (AUTO) 0.6 % (0.0-2.0); EOSINOPHILS # (AUTO) 0.1 K/uL (0.0-0.7); EOSINOPHILS % (AUTO) 1.7 % (0.0-6.0); HEMATOCRIT 40 % (33-45); HEMOGLOBIN 13.2 g/dL (11.5-14.8); LYMPHOCYTES # (AUTO) 1.6 K/uL (0.8-4.8); LYMPHOCYTES % (AUTO) 24.5 % (20.0-44.0); MEAN CORPUSCULAR HEMOGLOBIN 28 PG (26.0-33.0); MEAN CORPUSCULAR HGB CONC 33 g/dl (31.0-36.0); MEAN CORPUSCULAR VOLUME 86 fL (82-100); MONOCYTES # (AUTO) 0.6 K/uL (0.1-1.30); MONOCYTES % (AUTO) 9.1 % (2.0-12.0); NEUTROPHILS # (AUTO) 4.3 K/uL (1.8-8.9); NEUTROPHILS % (AUTO) 64.1 % (43.0-81.0); PLATELET COUNT (AUTO) 224 K/uL (150-450); RED BLOOD CELL COUNT(AUTO) 4.68 MIL/uL (4.0-5.2); RED CELL DISTRIBUTION WIDTH 13.6 % (11.5-15.0); WHITE BLOOD COUNT (AUTO) 6.7 K/uL (4.3-11.0)
[2024-06-02 11:36] LABS: ALBUMIN 3.4 g/dL (3.4-5.0); BILIRUBIN,TOTAL 0.2 mg/dL (0.2-1.0); CALCIUM, SERUM 8.8 mg/dL (8.5-10.1); CREATININE 1.2 mg/dL (0.6-1.3); POTASSIUM 3.8 mmol/L (3.5-5.1); TOTAL PROTEIN, SERUM 7.6 g/dL (6.4-8.2)
== END 2024-06-02 23:59 | disposition home or self-care (01) ==
LOC: LAB 10:52
PROVIDERS: ATTEND Internal Medicine Hematology & Oncology
DX: Z13.228 Encounter for screening for other metabolic disorders (principal); D64.9 Anemia, unspecified; R74.02 Elevation of levels of lactic acid dehydrogenase [LDH]
CPT/HCPCS: 36415; 80053-TC; 83615-TC; 85025-TC

== ENCOUNTER 2024-10-09 12:20 | Emergency (ER) | payer BC, OTHER ==
[~2024-10-09] VITALS: Ht 157.5 cm; Wt 72.6 kg
[2024-10-09] MEDS ORDERED: ADENOSINE 6 MG/2 ML VIAL ONE ×2 (12:30→12:31)
[2024-10-09 12:50] LABS: BASOPHILS # (AUTO) 0.1 K/uL (0.0-0.2); BASOPHILS % (AUTO) 0.6 % (0.0-2.0); EOSINOPHILS # (AUTO) 0.2 K/uL (0.0-0.7); EOSINOPHILS % (AUTO) 1.7 % (0.0-6.0); HEMATOCRIT 39 % (33-45); HEMOGLOBIN 12.9 g/dL (11.5-14.8); LYMPHOCYTES # (AUTO) 3.2 K/uL (0.8-4.8); MEAN CORPUSCULAR HEMOGLOBIN 28 PG (26.0-33.0); MEAN CORPUSCULAR HGB CONC 33 g/dl (31.0-36.0); MEAN CORPUSCULAR VOLUME 86 fL (82-100); MONOCYTES # (AUTO) 0.7 K/uL (0.1-1.30); MONOCYTES % (AUTO) 7.4 % (2.0-12.0); NEUTROPHILS # (AUTO) 5.5 K/uL (1.8-8.9); NEUTROPHILS % (AUTO) 57.3 % (43.0-81.0); PLATELET COUNT (AUTO) 220 K/uL (150-450); RED BLOOD CELL COUNT(AUTO) 4.58 MIL/uL (4.0-5.2); RED CELL DISTRIBUTION WIDTH 13.5 % (11.5-15.0); WHITE BLOOD COUNT (AUTO) 9.6 K/uL (4.3-11.0)
[2024-10-09] MEDS: ADENOSINE 6 MG/2 ML VIAL IVP ONE (13:12)
[2024-10-09 13:14] LABS: CALCIUM, SERUM 8.4 mg/dL (8.5-10.1); CARBON DIOXIDE 25 mmol/L (21-32); CHLORIDE 106 mmol/L (98-107); GLUCOSE 113 mg/dL (74-106); POTASSIUM 3.6 mmol/L (3.5-5.1); SODIUM SERUM 142 mmol/L (136-145); UREA NITROGEN, BLOOD 20 mg/dL (7-18)
[2024-10-09 14:33] VITALS: BP 130/74; TEMP 98; O2SAT 96
== END 2024-10-09 14:34 | disposition home or self-care (01) ==
LOC: ER 13:02
DX: I47.10 Supraventricular tachycardia, unspecified (principal); E11.9 Type 2 diabetes mellitus without complications; I10 Essential (primary) hypertension; I48.91 Unspecified atrial fibrillation; R00.2 Palpitations; R06.02 Shortness of breath; Z79.82 Long term (current) use of aspirin; Z79.899 Other long term (current) drug therapy; Z85.3 Personal history of malignant neoplasm of breast; Z88.0 Allergy status to penicillin; Z90.13 Acquired absence of bilateral breasts and nipples; Z92.21 Personal history of antineoplastic chemotherapy; Z92.3 Personal history of irradiation
CPT/HCPCS: 99291; 96374; 93005 ×2; 71045; 85025; 80048; 36415; 84484; J0153; J7030

== ENCOUNTER 2025-02-13 09:48 | Outpatient (CLI) | payer BC ==
[2025-02-13] MEDS ORDERED: IOHEXOL-300 100 ML VIAL IV ONE (10:08)
[2025-02-13] MEDS ORDERED: IV NS 0.9% 250 ML IV ONE (10:08)
== END 2025-02-13 23:59 | disposition home or self-care (01) ==
LOC: CT 09:48
PROVIDERS: ATTEND Internal Medicine Hematology & Oncology
DX: C50.919 Malignant neoplasm of unspecified site of unspecified female breast (principal); C43.9 Malignant melanoma of skin, unspecified; R91.8 Other nonspecific abnormal finding of lung field; R59.9 Enlarged lymph nodes, unspecified; N28.1 Cyst of kidney, acquired
CPT/HCPCS: 71270; 74178; J7050; Q9967

== ENCOUNTER 2025-06-29 09:52 | Outpatient (CLI) | payer BC, OTHER ==
[2025-06-29 10:22] LABS: PLATELET COUNT (AUTO) 257 K/uL (150-450); RED BLOOD CELL COUNT(AUTO) 4.69 MIL/uL (4.0-5.2); RED CELL DISTRIBUTION WIDTH 13.9 % (11.5-15.0); WHITE BLOOD COUNT (AUTO) 6.1 K/uL (4.3-11.0)
[2025-06-29 10:51] LABS: ASPARTATE AMINOTRANSFERASE 19.0 U/L (15-37); CALCIUM, SERUM 9.7 mg/dL (8.5-10.1); CREATININE 1.3 mg/dL (0.6-1.3); SODIUM SERUM 143.0 mmol/L (136-145); TOTAL PROTEIN, SERUM 8.0 g/dL (6.4-8.2); UREA NITROGEN, BLOOD 20.0 mg/dL (7-18)
== END 2025-06-29 23:59 | disposition home or self-care (01) ==
LOC: LAB 09:52
PROVIDERS: ATTEND Internal Medicine Hematology & Oncology
DX: Z13.228 Encounter for screening for other metabolic disorders (principal); R74.02 Elevation of levels of lactic acid dehydrogenase [LDH]; D64.9 Anemia, unspecified
CPT/HCPCS: 36415; 80053-TC; 83615-TC; 85025-TC

== ENCOUNTER 2025-08-10 10:47 | Outpatient (CLI) | payer BC, OTHER ==
[2025-08-10 11:25] LABS: ASPARTATE AMINOTRANSFERASE 17.0 U/L (15-37); CALCIUM, SERUM 9.6 mg/dL (8.5-10.1); CREATININE 1.3 mg/dL (0.6-1.3); SODIUM SERUM 144.0 mmol/L (136-145); TOTAL PROTEIN, SERUM 8.1 g/dL (6.4-8.2); UREA NITROGEN, BLOOD 23.0 mg/dL (7-18)
[2025-08-10 12:53] LABS: PLATELET COUNT (AUTO) 270 K/uL (150-450); RED BLOOD CELL COUNT(AUTO) 4.67 MIL/uL (4.0-5.2); RED CELL DISTRIBUTION WIDTH 14.0 % (11.5-15.0); WHITE BLOOD COUNT (AUTO) 6.6 K/uL (4.3-11.0)
== END 2025-08-10 23:59 | disposition home or self-care (01) ==
LOC: LAB 10:47
PROVIDERS: ATTEND Internal Medicine Hematology & Oncology
DX: C50.919 Malignant neoplasm of unspecified site of unspecified female breast (principal); M25.60 Stiffness of unspecified joint, not elsewhere classified; C79.9 Secondary malignant neoplasm of unspecified site
CPT/HCPCS: 36415; 80053-TC; 83615-TC; 85025-TC

== ENCOUNTER 2025-08-24 10:25 | Outpatient (CLI) | payer BC, OTHER ==
[2025-08-24 11:01] LABS: ASPARTATE AMINOTRANSFERASE 22.0 U/L (15-37); CALCIUM, SERUM 9.2 mg/dL (8.5-10.1); CREATININE 1.3 mg/dL (0.6-1.3); SODIUM SERUM 144.0 mmol/L (136-145); TOTAL PROTEIN, SERUM 8.0 g/dL (6.4-8.2); UREA NITROGEN, BLOOD 26.0 mg/dL (7-18)
[2025-08-24 11:04] LABS: PLATELET COUNT (AUTO) 257 K/uL (150-450); RED BLOOD CELL COUNT(AUTO) 4.69 MIL/uL (4.0-5.2); RED CELL DISTRIBUTION WIDTH 13.9 % (11.5-15.0); WHITE BLOOD COUNT (AUTO) 6.1 K/uL (4.3-11.0)
== END 2025-08-24 23:59 | disposition home or self-care (01) ==
LOC: LAB 10:25
PROVIDERS: ATTEND Internal Medicine Hematology & Oncology
DX: Z13.228 Encounter for screening for other metabolic disorders (principal); R74.02 Elevation of levels of lactic acid dehydrogenase [LDH]; D64.9 Anemia, unspecified
CPT/HCPCS: 36415; 80053-TC; 83615-TC; 85025-TC